=== PATIENT | male | born 1945 | race Caucasian/White ===

== ENCOUNTER → 2017-02-04 | Outpatient (CLI) | payer MEDICARE ==
--- NOTE | 2017-02-05 21:08 | ECHOF ---
Referral Reason:I10 Hypertension, I35.0 Nonrheumatic aortic (valve MEASUREMENTS -------- HEIGHT: 172.7 cm WEIGHT: 86.2 kg BP: 187/84 RVIDd: 2.3 cm (< 3.3) IVSd: 1.2 cm (0.6 - 1.1) LVIDd: 5.1 cm (3.9 - 5.3) LVPWd: 1.2 cm (0.6 - 1.1) IVSs: 1.9 cm LVIDs: 2.9 cm LVPWs: 1.9 cm LAESV Index (A-L): 20.08 ml/m Ao Diam: 3.8 cm (2.0 - 3.7) LA Diam: 3.1 cm (2.7 - 3.8) MV EXCURSION: 18.742 mm (> 18.000) MV EF SLOPE: 100 mm/s (70 - 150) EPSS: 0.9 cm MV E Adolfo: 0.50 m/s MV DecT: 462 ms MV A Adolfo: 0.92 m/s MV E/A Ratio: 0.54 AV maxP.51 mmHg AV meanP.85 mmHg AR PHT: 300 ms RAP: 5.00 mmHg RVSP: 30.22 mmHg FINDINGS -------- Sinus rhythm. This was a technically adequate study. There is moderate concentric left ventricular hypertrophy. Overall left ventricular systolic function is normal with, an EF between 60 - 65 %. The right ventricle is normal in size and function. Normal LA size by volume 22+/-6 ml/m2. The right atrium is normal in size. Aortic valve is severely thickened. There is [id number] aortic regurgitation. The aortic pressure half-time by doppler is 300ms. Severe aortic stenosis with peak/mean pressure gradient of 82.51mmHg / 53.85mmHg The mitral valve leaflets are mildly thickened. There is trace mitral regurgitation. Trace tricuspid regurgitation present. There is no evidence of pulmonary hypertension. The right ventricular systolic pressure, as measured by Doppler, is 30.22mmHg. The pulmonic valve was not well visualized. The aortic root is mildy dilated. Normal inferior vena cava with normal inspiratory collapse consistent with estimated right atrial pressure of 5 mmHg. The pericardium is normal. There is no pericardial effusion. CONCLUSIONS -------- 1. Sinus rhythm. 2. There is trace mitral regurgitation. 3. Trace tricuspid regurgitation present. 4. There is no evidence of pulmonary hypertension. 5. The right ventricular systolic pressure, as measured by Doppler, is 30.22mmHg. 6. The pulmonic valve was not well visualized. 7. The aortic root is mildy dilated. 8. There is no pericardial effusion. 9. This was a technically adequate study. 10. Overall left ventricular systolic function is normal with, an EF between 60 - 65 %. 11. Normal LA size by volume 22+/-6 ml/m2. 12. Aortic valve is severely thickened. 13. There is sggtfewa-uc-eubpim aortic regurgitation. 14. The aortic pressure half-time by doppler is 300ms. 15. Severe aortic stenosis with peak/mean pressure gradient of 82.51mmHg / 53.85mmHg, 16. The mitral valve leaflets are mildly thickened. [employer] WORKER: Deepak Conway RDCS
== END | disposition home or self-care (01) ==
LOC: RADECHMAIN 11:11
PROVIDERS: ATTEND Internal Medicine
DX: I35.0 Nonrheumatic aortic (valve) stenosis (principal); I35.1 Nonrheumatic aortic (valve) insufficiency; I07.1 Rheumatic tricuspid insufficiency; I05.8 Other rheumatic mitral valve diseases
CPT/HCPCS: 93306

== ENCOUNTER 2017-02-28 06:28 | Day surgery (SDC) | payer MEDICARE ==
[2017-02-20 14:59] VITALS: BMI 28.8
[2017-02-28] MEDS ORDERED: SODIUM CHLORIDE 0.9% 500 ML IV ONE (06:44)
[2017-02-28 06:55] VITALS: RESP 16; TEMP 98.3
[2017-02-28] MEDS ORDERED: fentaNYL (PF) 50 MCG/ML 2 ML AMP ONE (07:18)
[2017-02-28] MEDS ORDERED: MIDAZOLAM 2 MG/2 ML VIAL ONE (07:18)
[2017-02-28] MEDS: BENZOCAINE SPRAY 1 SPRAY CAN MUCOUS MEM ONE ×2 (07:25→07:36)
[2017-02-28] MEDS: fentaNYL (PF) 50 MCG/ML 2 ML AMP IVP ONE ×2 (07:36→07:46)
[2017-02-28] MEDS: MIDAZOLAM 2 MG/2 ML VIAL IVP ONE ×3 (07:45→08:12)
[2017-02-28] MEDS ORDERED: MIDAZOLAM 2 MG/2 ML VIAL IVP ONE (07:52)
--- NOTE | 2017-02-28 08:25 | P.PCN ---
Date of Procedure: 02/28/17 Preoperative Diagnosis: aortic stenosis and regurgitation Postoperative Diagnosis: 2. Severe aortic stenosis and moderate aortic regurgitation. It appears to be a bicuspid aortic valve Procedure(s) Performed: LUIS examination Implants: Indications for Procedure: Operative Findings: Description of Procedure: INDICATION: Assessment of the aortic valve disease CONSENT: . Informed consent was obtained from both patient and family PROCEDURE: . Patient was brought to the lab in a fasting state. He was prepped and draped in the usual fashion. The throat was sprayed with Cetacaine and a lubricated Omni probe was introduced into the oropharynx and was advanced into the esophagus and stomach. Multiple views were obtained. Patient tolerated the procedure well. Saline bubble injection was performed along with color and pulse wave Doppler FINDINGS: The aortic valve is calcified. The aortic root is dilated and measures about 4.4 cm. It was difficult to planimetry valve area. The valve appears to be bicuspid. There is moderate aortic regurgitation. The aortic valve area is estimated as 1.1 cm by planimetry. A peak gradient of about 90 to 100 millimeters of mercury with a mean of 50 was applied across the aortic valve. These findings are consistent with severe aortic stenosis and moderate aortic regurgitation. The mitral valve showed trace regurgitation. Mitral valve structure appeared to be normal. Left atrial appendage free of any clot. Interatrial septum is could not be well-visualized.. There appeared to be mild shunt across the interatrial septum suggestive of PFO. However, injection of the controversial and mobile injection did not reveal any crossover of bubbles across the interatrial septum. Left ventricular function is preserved. IMPRESSION: #1. Severe aortic stenosis and moderate aortic regurgitation. Though planimetry showed a valve area of 1. once per centimeters the gradient is up to 100 with a mean of 50 mmHg. Aortic root is dilated and ascending aorta is dilated measuring about 4.2-1.4 cm. #2. Normal left coronary function #3. No clot in the left atrial appendage #4. Suspicious PFO PLAN: Continue maximal medical therapy. Consider aortic valve replacement. Follow-up in the office in one week
[2017-02-28] MEDS ORDERED: SODIUM CHLORIDE 0.9% 1,000 ML IV SCH (08:30)
[2017-02-28 09:16] VITALS: BP 126/65; PULSE 68
== END 2017-02-28 09:30 | disposition home or self-care (01) ==
LOC: CATHCVL 06:28
PROVIDERS: ATTEND Internal Medicine Cardiovascular Disease
DX: I35.2 Nonrheumatic aortic (valve) stenosis with insufficiency (principal); I10 Essential (primary) hypertension; Z82.49 Family history of ischemic heart disease and other diseases of the circulatory system; Z79.899 Other long term (current) drug therapy; Z87.891 Personal history of nicotine dependence
CPT/HCPCS: 93312; 93320; 93325; J2250; J3010

== ENCOUNTER → 2017-03-06 | Outpatient (CLI) | payer MEDICARE ==
[2017-03-06 12:35] LABS: CH 31.4; CHCM 33.8; HCT 49.1 % (39.0-53.0); HDW 2.52; HGB 16.3 gm/dL (13.0-17.5); MCHC 33.3 g/dL (31.0-37.0); MCV 93.2 fL (80.0-100.0); Mean Platelet Volume 6.5; RBC 5.27 m/uL (4.30-5.90); WBC 6.9 k/uL (3.8-10.6)
[2017-03-06 13:11] LABS: Anion Gap 7 mmol/L; Blood Urea Nitrogen 18 mg/dL (9-20); Carbon Dioxide 26 mmol/L (22-30); Chloride 105 mmol/L (98-107); Non-African American GFR(MDRD) 54 (>60 ml/min/1.73 sqM); Potassium 4.5 mmol/L (3.5-5.1); Sodium 138 mmol/L (137-145)
== END | disposition home or self-care (01) ==
LOC: LABPAT 12:05
PROVIDERS: ATTEND Internal Medicine Cardiovascular Disease
DX: Z01.812 Encounter for preprocedural laboratory examination (principal); I35.0 Nonrheumatic aortic (valve) stenosis
CPT/HCPCS: 80051; 82565; 84520; 85027

== ENCOUNTER 2017-03-11 07:03 | Day surgery (SDC) | payer MEDICARE ==
[2017-03-07 15:04] VITALS: BMI 28.8
[~2017-03-11 07:03] MED LIST: ALPRAZolam 0.25 MG TAB PO PRN; ALPRAZolam 0.5 MG TAB PO PRN; ASPIRIN 325 MG TAB PO STA; ATORVASTATIN 80 MG TAB PO STA; NITROGLYCERIN SL TABS 0.4 MG TAB SUBLINGUAL PRN; SODIUM CHLORIDE 0.9% 1,000 ML in EMPTY BAG 1 BAG IV ONE
[2017-03-11] MEDS ORDERED: MIDAZOLAM 2 MG/2 ML VIAL IV ONE (09:57)
[2017-03-11] MEDS ORDERED: fentaNYL (PF) 50 MCG/ML 2 ML AMP IV ONE (09:58)
[2017-03-11] MEDS ORDERED: LIDOCAINE 2% INJ 20 MG/ML SQ ONE (10:00)
[2017-03-11 10:20] LABS: Site PA
[2017-03-11 10:24] LABS: Site RA
[2017-03-11 10:27] LABS: Site FA
[2017-03-11] MEDS ORDERED: RX INFO: IV CONTRAST WAS GIVEN 1 EACH MISC MISCELLANE PRN (11:06)
[2017-03-11] MEDS ORDERED: IODIXANOL 320 MG/ML 100 ML INTRAARTER ONE (11:08)
[2017-03-11] MEDS ORDERED: SODIUM CHLORIDE 0.9% 1,000 ML IV SCH (11:15)
--- NOTE | 2017-03-11 11:23 | P.PCN ---
Date of Procedure: 03/11/17 Preoperative Diagnosis: Bicuspid aortic valve, aortic stenosis and regurgitation Postoperative Diagnosis: Severe aortic stenosis, moderate aortic regurgitation and normal coronary arteries Procedure(s) Performed: Right and left heart catheterization without left ventriculography plus aortic root injection Description of Procedure: HISTORY: This is a 71-year-old gentleman with a known aortic stenosis who was recently found to have increasing gradient consistent with severe aortic stenosis associated with moderate aortic regurgitation. His eye aortic root is also dilated and measured about 4.3 cm. The aortic valve by LUIS examination appear to be significantly stenotic and appear to be bicuspid. She is advised to have a right and left heart catheterization. CONSENT:I have discussed the risks, benefits and alternative therapies for the above-mentioned procedure and for both sedation/analgesia as well as necessary blood product administration, if indicated, as they pertain to this patient. The patient has indicated understanding and acceptance of the risks and procedures discussed. PROCEDURE: RIGHT HEART CATHETERIZATION: Patient was brought to the lab in a fasting state. Patient was given some IV sedation. The right groin is infiltrated with lidocaine and right femoral vein was entered using Seldinger technique. Right heart catheterization was performed using [place]-Juan catheter. Patient tolerated the procedure well. Hemostasis was obtained with manual compression. LEFT HEART CATHETERIZATION: Right femoral artery was entered using Seldinger technique. A 6-Palauan catheter was left in place and selective coronary arteriography was performed. Right Amplatz 1 catheter and guidewires were used across the aortic valve. Multiple other catheters were also tried including multipurpose. Patient tolerated the procedure well. Femoral angiogram was performed and Angio-Seal was applied for hemostasis. No immediate complications were noted and patient was transferred to [facility] in a stable condition Conscious Sedation: Versed : 1 mg Fentanyl : 50 g Duration : 62 minutes HEMODYNAMICS: RIGHT HEART CATHETERIZATION: Right atrial pressure: 119/8 Right ventricle: 37/5/5 Pulmonary artery: 33/14/20 PCW: 17/12 Cardiac output by thermodilution method is 4.4 and by Stephanie method 5.18. LEFT HEART CATHETERIZATION: The aortic pressure is 135/56. Left ventricle pressure was 194/9/16. The peak gradient across the aortic valve was 59. The mean gradient was 26. The valve area is 0.6 to 0.7 AORTIC ROOT INJECTION: This revealed heavily calcified aortic valve with evidence of moderate aortic regurgitation. The aortic root is also appeared dilated SELECTIVE CORONARY ARTERIOGRAPHY: LEFT MAIN: Normal length without any obstructive disease THE LEFT ANTERIOR DESCENDING CORONARY ARTERY: . This is a good caliber vessel giving rise to small diagonal septal branches and free of occlusive disease THE LEFT CIRCUMFLEX AND IS CORONARY ARTERY: . This is a good caliber vessel free of any significant occlusive disease THE RIGHT CORONARY ARTERY: . This is small and nondominant and free of occlusive disease LEFT VENTRICULOGRAPHY: . Not performed FINAL IMPRESSION: #1. Severe aortic stenosis. #2. Bicuspid aortic valve #3. Moderate aortic regurgitation #4. Normal coronary arteries. PLAN: Continues to medical therapy. Aortic valve replacement . Patient may also may require repair of aortic sylvia, in view of bicuspid valve. PROGNOSIS: []
[2017-03-11] MEDS ORDERED: clonazePAM 0.5 MG TAB PO SCH (21:00)
[2017-03-12 04:33] VITALS: RESP 18; TEMP 97.6
[2017-03-12 07:13] LABS: Anion Gap 4 mmol/L; Blood Urea Nitrogen 21 mg/dL (9-20); Calcium 9.1 mg/dL (8.4-10.2); Carbon Dioxide 26 mmol/L (22-30); Chloride 107 mmol/L (98-107); Glucose 87 mg/dL (74-99); Non-African American GFR(MDRD) 52 (>60 ml/min/1.73 sqM); Potassium 4.2 mmol/L (3.5-5.1); Sodium 137 mmol/L (137-145)
[2017-03-12 07:52] VITALS: BP 111/61; PULSE 64
[2017-03-12] MEDS ORDERED: FLUTICASONE 50MCG/SPRAY NASAL 16GM EA NOSTRIL SCH (09:00)
[2017-03-12] MEDS ORDERED: LISINOPRIL 20 MG TAB PO SCH (09:00)
[2017-03-12] MEDS ORDERED: METOPROLOL SUCCINATE (ER) 25 MG TAB.ER.24H PO SCH (09:00)
[2017-03-12] MEDS ORDERED: HYDROCHLOROTHIAZIDE 25 MG TAB PO SCH (09:00)
[2017-03-12] MEDS ORDERED: buPROPion XL 300 MG TAB.ER.24H PO SCH (09:00)
--- NOTE | 2017-03-12 09:30 | P.DS ---
Providers Date of admission: 03/11/2017 Attending physician: Epifanio Mcdaniels Consults: 03/11/17 11:10 Consult Physician Routine Consulting Provider: Greg French Consult Reason/Comments: Hypertension, aortic stenosis, medical management Do you want consulting provider notified?: Yes Primary care physician: Greg French - Discharge Diagnosis(es) (1) Aortic stenosis, severe Current Visit: Yes Status: Acute (2) Aortic valve regurgitation, nonrheumatic Current Visit: Yes Status: Acute (3) Bicuspid aortic valve Current Visit: Yes Status: Acute Hospital Course: Patient was brought in for elective cardiac catheterization for assessment of aortic stenosis and also concomitant ischemic heart disease. Patient had a right and left heart catheterization yesterday. He was found to have severe aortic stenosis with a valve area of 0.6 to 0.7 and evidence of moderate aortic regurgitation. Patient did not have any critical coronary artery disease. Patient was kept overnight for hydration. Patient remains stable without any chest pain, shortness of breath or dizziness. Patient had soft hematoma with some ecchymosis in the groin. It is pedal pulse are well preserved. Lungs are clear. Heart is regular with systolic murmur as before. Patient is being discharged home today. Patient will be scheduled for aortic valve replacement as an outpatient. Plan - Discharge Summary New Discharge Prescriptions: Continue Enalapril/Hydrochlorothiazide [Vaseretic 10-25 mg] 1 each PO DAILY buPROPion HCL [Wellbutrin XL] 300 mg PO DAILY Metoprolol Succinate (ER) [Toprol XL] 25 mg PO DAILY clonazePAM [KlonoPIN] 0.5 mg PO HS Fluticasone Nasal [place] [Flonase Nasal [place]] 1 spray EA NOSTRIL DAILY Discharge Medication List Enalapril/Hydrochlorothiazide [Vaseretic 10-25 mg] 1 each PO DAILY 02/20/17 [ History] Metoprolol Succinate (ER) [Toprol XL] 25 mg PO DAILY 02/20/17 [History] buPROPion HCL [Wellbutrin XL] 300 mg PO DAILY 02/20/17 [History] clonazePAM [KlonoPIN] 0.5 mg PO HS 02/20/17 [History] Fluticasone Nasal [place] [Flonase Nasal [place]ab[place]] 1 spray EA NOSTRIL DAILY 03/07/17 [History] Discharge Disposition: HOME SELF-CARE
--- NOTE | 2017-03-13 07:51 | CONS ---
CONSULTATION Consultation regarding medical management. HISTORY OF PRESENT ILLNESS: This 71-year-old gentleman is being evaluated following a followup of a recent evaluation in the office. The patient was noted to have an aortic stenosis murmur. He underwent echocardiography, which revealed that he had significant stenosis. In view of this, the patient has been seen by Dr. Mcdaniels, brought in today for a cardiac catheterization and aortic valve replacement evaluation. The patient noted to have a tight aortic stenosis, some aortic regurgitation, adequate left ventricular function and normal coronary arteries. The patient also has a bicuspid valve. He also has aneurysmal dilatation of the thoracic aorta. The patient primarily has a long-standing history of hypertension and history of chronic depression on medical therapy, well controlled. He also has some chronic anxiety associated, which is also well controlled. PAST MEDICAL HISTORY: As mentioned above, history of hypertension, chronic anxiety, depression disorder, mild degenerative arthritis. No history of any lung disease, liver disease, kidney disease, ulcer, TB, hepatitis. No history of a rheumatic fever, myocardial infarction or CVA. Does have BPH. PAST SURGICAL HISTORY: Negative for any major surgeries. PERSONAL HISTORY: Never smoked. No alcohol none. MEDICATIONS: Medications at present include enalapril hydrochlorothiazide 10/25 one daily, Flonase nasal inhaler, metoprolol succinate 25 mg daily, Wellbutrin XL 300 mg daily, Klonopin 0.5 mg at bedtime. SOCIAL HISTORY: The patient is , lives with the spouse. He is a retired schoolteacher. FAMILY MEDICAL HISTORY: Noncontributory. The patient has 2 adopted children. REVIEW OF SYSTEMS: No headaches, dizziness. No syncope, presyncope. CARDIAC: No chest pain, angina, palpitation. RESPIRATORY: No shortness of breath, cough, dyspnea. EXTREMITIES: No edema. CONSTITUTIONAL: No fever, chills. PHYSICAL EXAMINATION: Pleasant gentleman in no distress. Vitals stable as recorded. The patient's chest is clear. CARDIAC: Normal S1, S2 with no gallops. Regular rhythm. Systolic murmur 2/6 at the apex and left sternal border in the apex. EXTREMITIES: No edema. NEUROLOGICAL: Awake, alert, oriented x3 with well coordinated movements of upper extremities. LABORATORY ASSESSMENT: None new. ASSESSMENT: 1. Aortic stenosis, severe. 2. Bicuspid aortic valve. 3. Dilated aortic root. 4. Hypertension, controlled. 5. History of depression, controlled. PLAN: Basic on this consultation most of the time was spent with the patient and spouse regarding the patient's condition also patient's status. His activity limitations. The patient's son is getting on the 04 of April and it would be okay for the patient to attend the wedding. Surgical planning will be done subsequent to that. The patient will also be on vacation for 2 weeks prior to surgery following his sounds wedding, as long as the patient is not doing any heavy duty work, lifting heavy objects, he should be okay. Advised patient to decide whether he wants to have surgical procedure done at this hospital or at a tertiary center. His involves a nurse at [facility] and he is contemplating surgery there. Also one of his friends at this institution from cardiac ailment and thus he is nervous. The patient has been reassured that the surgical skills here of the surgeon is fine and that he should receive good care. The patient is also offered to review the outcome statistics as available. MMODL / IJN: [id number] /
== END 2017-03-12 11:40 | disposition home or self-care (01) ==
LOC: CATHCVL 07:03 → 3OBS 11:05 → CATHCVL 03-12 11:40
PROVIDERS: ATTEND Internal Medicine Cardiovascular Disease
DX: Q23.1 Congenital insufficiency of aortic valve (principal); I35.0 Nonrheumatic aortic (valve) stenosis; I35.1 Nonrheumatic aortic (valve) insufficiency; Z95.2 Presence of prosthetic heart valve; I10 Essential (primary) hypertension; Z87.891 Personal history of nicotine dependence; Z82.49 Family history of ischemic heart disease and other diseases of the circulatory system; F32.9 Major depressive disorder, single episode, unspecified; F41.9 Anxiety disorder, unspecified; Z79.899 Other long term (current) drug therapy
CPT/HCPCS: 93460; 80048; 85018; 82810; 99152; 99153 ×3; C1760; C1769 ×3; C1894 ×2; J2001; J2250; Q9967; J3010

== ENCOUNTER 2017-10-20 10:41 | Inpatient (IN) | payer MEDICARE ==
--- NOTE | 2017-10-20 10:54 | ED ---
General Adult HPI - General Stated complaint: Syncope Time Seen by Provider: 10/20/17 10:41 Source: RN notes reviewed - History of Present Illness Initial comments: This is a 72-year-old male who presents emergency Department with a past medical history significant for aorta and aortic valve replacement. Patient states this occurred in August. Patient was having a stress test when he started to become lightheaded staff laid him down he passed out patient was only out for a minute or 2. He denies any chest pain or palpitations. Patient denies shortness of breath or difficulty breathing. Patient states currently he is completely asymptomatic. Patient denies any headache patient denies numbness weakness. Patient denies being lightheaded currently. Patient states at the time he doesn't remember being lightheaded but staff indicated to EMS that he was lightheaded. Patient denies any leg swelling or calf tenderness. Patient denies any recent fever chills or cough. - Related Data Home Medications Medication Instructions Recorded Confirmed Metoprolol Succinate (ER) [Toprol 25 mg PO BID 02/20/17 10/20/17 XL] buPROPion HCL [Wellbutrin XL] 300 mg PO DAILY 02/20/17 10/20/17 Fluticasone Nasal [place] [Flonase 2 spray EA NOSTRIL DAILY 03/07/17 10/20/17 Nasal [place]] Acetaminophen Tab [Tylenol Tab] 325 - 650 mg PO Q4-6H PRN 10/20/17 10/20/17 Amiodarone [Cordarone] 200 mg PO DAILY 10/20/17 10/20/17 Fexofenadine HCl 180 mg PO DAILY 10/20/17 10/20/17 Multivitamins, Thera [Multivitamin 1 tab PO DAILY 10/20/17 10/20/17 (formulary)] Polyethylene Glycol 3350 [Miralax] 17 gm PO DAILY 10/20/17 10/20/17 Tamsulosin [Flomax] 0.4 mg PO DAILY 10/20/17 10/20/17 Allergies Allergy/AdvReac Type Severity Reaction Status Date / Time No Known Allergies Allergy Verified 10/20/17 11:39 Review of Systems ROS Statement: Those systems with pertinent positive or pertinent negative responses have been documented in the HPI. ROS Other: All systems not noted in ROS Statement are negative. Past Medical History Additional Past Medical History / Comment(s): see Dr Mcdaniels's H&P, History of Any Multi-Drug Resistant Organisms: None Reported Past Surgical History: No Surgical Hx Reported Additional Past Surgical History / Comment(s): LUIS Past Anesthesia/Blood Transfusion Reactions: No Reported Reaction Additional Past Anesthesia/Blood Transfusion Reaction / Comment(s): has never had anesthesia Past Psychological History: Depression Smoking Status: Never smoker Past Alcohol Use History: Rare Past Drug Use History: None Reported - Past Family History Father Family Medical History: Cancer General Exam - General Exam Comments Initial Comments: GENERAL: Patient is well-developed and well-nourished. Patient is nontoxic and well- hydrated and is in mild distress. ENT: Neck is soft and supple. No significant lymphadenopathy is noted. Oropharynx is clear. Moist mucous membranes. Neck has full range of motion without eliciting any pain. EYES: The sclera were anicteric and conjunctiva were pink and moist. Extraocular movements were intact and pupils were equal round and reactive to light. Eyelids were unremarkable. PULMONARY: Unlabored respirations. Good breath sounds bilaterally. No audible rales rhonchi or wheezing was noted. CARDIOVASCULAR: There is a regular rate and rhythm without any murmurs gallops or rubs. ABDOMEN: Soft and nontender with normal bowel sounds. No palpable organomegaly was noted. There is no palpable pulsatile mass. SKIN: Skin is clear with no lesions or rashes and otherwise unremarkable. NEUROLOGIC: Patient is alert and oriented x3. Cranial nerves II through XII are grossly intact. Motor and sensory are also intact. Normal speech, volume and content. Symmetrical smile. MUSCULOSKELETAL: Normal extremities with adequate strength and full range of motion. No lower extremity swelling or edema. No calf tenderness. LYMPHATICS: No significant lymphadenopathy is noted PSYCHIATRIC: Normal psychiatric evaluation. Normal interpersonal interactions appears functionally intact in deals appropriately with others. No signs of depression. No signs of anxiety. Course Vital Signs 10/20/17 10/20/17 10/20/17 10:44 12:13 12:16 Temperature 98.0 F Pulse Rate 69 84 72 Respiratory 16 16 16 Rate Blood Pressure 167/87 65/47 142/105 O2 Sat by Pulse 98 98 100 Oximetry 10/20/17 10/20/17 13:25 13:34 Temperature Pulse Rate 67 65 Respiratory 18 18 Rate Blood Pressure 162/81 154/81 O2 Sat by Pulse 97 98 Oximetry Medical Decision Making - Medical Decision Making EKG shows normal sinus rhythm at 69 bpm NJ interval is 206 QRS is 114 Q-T intervals 432 QTC is 462. EKG shows no ST segment elevation or depression CT of the chest showed no acute abnormality. Chest x-ray showed no acute abnormality. I spoke with Dr. French. Dr. French wanted the patient admitted and he wanted an echocardiogram ordered. - Lab Data Result diagrams: 10/20/17 11:08 10/20/17 11:52 Lab Results 10/20/17 10/20/17 10/20/17 Range/Units 11:08 11:52 11:52 WBC 7.6 (3.8-10.6) k/uL RBC 5.03 (4.30-5.90) m/uL Hgb 14.8 (13.0-17.5) gm/dL Hct 46.1 (39.0-53.0) % MCV 91.5 (80.0-100.0) fL MCH 29.4 (25.0-35.0) pg MCHC 32.1 (31.0-37.0) g/dL RDW 14.0 (11.5-15.5) % Plt Count 201 (150-450) k/uL Neutrophils % 77 % Lymphocytes % 11 % Monocytes % 6 % Eosinophils % 3 % Basophils % 1 % Neutrophils # 5.8 (1.3-7.7) k/uL Lymphocytes # 0.9 L (1.0-4.8) k/uL Monocytes # 0.5 (0-1.0) k/uL Eosinophils # 0.2 (0-0.7) k/uL Basophils # 0.1 (0-0.2) k/uL PT 10.6 (9.0-12.0) sec INR 1.1 (<1.2) APTT 20.6 L (22.0-30.0) sec D-Dimer 3.70 H (<0.60) mg/L FEU Sodium 142 (137-145) mmol/L Potassium 4.5 (3.5-5.1) mmol/L Chloride 105 (98-107) mmol/L Carbon Dioxide 27 (22-30) mmol/L Anion Gap 10 mmol/L BUN 19 (9-20) mg/dL Creatinine 1.27 H (0.66-1.25) mg/dL Est GFR (CKD-EPI)AfAm 65 (>60 ml/min/1.73 sqM) Est GFR (CKD-EPI)NonAf 56 (>60 ml/min/1.73 sqM) Glucose 100 H (74-99) mg/dL Calcium 10.2 (8.4-10.2) mg/dL Magnesium 2.0 (1.6-2.3) mg/dL Total Bilirubin 0.5 (0.2-1.3) mg/dL AST 28 (17-59) U/L ALT 25 (21-72) U/L Alkaline Phosphatase 78 (38-126) U/L Total Creatine Kinase (55-170) U/L CK-MB (CK-2) (0.0-2.4) ng/mL CK-MB (CK-2) Rel Index Troponin I (0.000-0.034) ng/mL Total Protein 6.1 L (6.3-8.2) g/dL Albumin 3.5 (3.5-5.0) g/dL 10/20/17 Range/Units 11:52 WBC (3.8-10.6) k/uL RBC (4.30-5.90) m/uL Hgb (13.0-17.5) gm/dL Hct (39.0-53.0) % MCV (80.0-100.0) fL MCH (25.0-35.0) pg MCHC (31.0-37.0) g/dL RDW (11.5-15.5) % Plt Count (150-450) k/uL Neutrophils % % Lymphocytes % % Monocytes % % Eosinophils % % Basophils % % Neutrophils # (1.3-7.7) k/uL Lymphocytes # (1.0-4.8) k/uL Monocytes # (0-1.0) k/uL Eosinophils # (0-0.7) k/uL Basophils # (0-0.2) k/uL PT (9.0-12.0) sec INR (<1.2) APTT (22.0-30.0) sec D-Dimer (<0.60) mg/L FEU Sodium (137-145) mmol/L Potassium (3.5-5.1) mmol/L Chloride (98-107) mmol/L Carbon Dioxide (22-30) mmol/L Anion Gap mmol/L BUN (9-20) mg/dL Creatinine (0.66-1.25) mg/dL Est GFR (CKD-EPI)AfAm (>60 ml/min/1.73 sqM) Est GFR (CKD-EPI)NonAf (>60 ml/min/1.73 sqM) Glucose (74-99) mg/dL Calcium (8.4-10.2) mg/dL Magnesium (1.6-2.3) mg/dL Total Bilirubin (0.2-1.3) mg/dL AST (17-59) U/L ALT (21-72) U/L Alkaline Phosphatase (38-126) U/L Total Creatine Kinase 41 L (55-170) U/L CK-MB (CK-2) 1.0 (0.0-2.4) ng/mL CK-MB (CK-2) Rel Index 2.4 Troponin I <0.012 (0.000-0.034) ng/mL Total Protein (6.3-8.2) g/dL Albumin (3.5-5.0) g/dL Disposition Clinical Impression: Syncope Disposition: ADMITTED IP TO THIS HOSP Referrals: Greg French MD [Primary Care Provider] - 1-2 days Time of Disposition: 14:16
[2017-10-20 11:25] LABS: Basophils # (A) 0.1 k/uL (0-0.2); Basophils % (A) 1 %; Eosinophils # (A) 0.2 k/uL (0-0.7); Eosinophils % (A) 3 %; HCT 46.1 % (39.0-53.0); HGB 14.8 gm/dL (13.0-17.5); Lymphocytes # (A) 0.9 k/uL (1.0-4.8); Lymphocytes % (A) 11 %; MCH 29.4 pg (25.0-35.0); MCHC 32.1 g/dL (31.0-37.0); MCV 91.5 fL (80.0-100.0); Mean Platelet Volume 7.7; Monocytes # (A) 0.5 k/uL (0-1.0); Monocytes % (A) 6 %; Neutrophils # (A) 5.8 k/uL (1.3-7.7); Neutrophils % (A) 77 %; Platelet Count 201 k/uL (150-450); RBC 5.03 m/uL (4.30-5.90); WBC 7.6 k/uL (3.8-10.6)
--- NOTE | 2017-10-20 11:54 | XR ---
EXAMINATION TYPE: XR chest 2V DATE OF EXAM: 10/20/2017 COMPARISON: NONE HISTORY: Lightheadedness. Recent cardiac surgery. TECHNIQUE: Frontal and lateral views of the chest are obtained. FINDINGS: There is a small layering left pleural effusion with associated left basilar airspace dise ase, likely compressive atelectasis. Remainder the lungs are clear. The heart is mildly enlarged with post CABG changes of the chest. Minimal multilevel degenerative changes of the thoracic spine are no parul. IMPRESSION: Small layering left pleural effusion with associated left basilar airspace disease, like ly compressive atelectasis.
[2017-10-20 12:16] LABS: Albumin 3.5 g/dL (3.5-5.0); Calcium 10.2 mg/dL (8.4-10.2); Potassium 4.5 mmol/L (3.5-5.1); Total Bilirubin 0.5 mg/dL (0.2-1.3); Total Protein 6.1 g/dL (6.3-8.2)
[2017-10-20 12:26] LABS: Creatine Kinase 41 U/L (55-170)
[2017-10-20 12:30] LABS: INR 1.1 (<1.2)
[2017-10-20 12:31] LABS: Prothrombin Time 10.6 sec (9.0-12.0)
[2017-10-20 12:35] LABS: D-Dimer 3.7 mg/L FEU (<0.60); Partial Thromboplastin Time 20.6 sec (22.0-30.0)
[2017-10-20 12:38] LABS: Troponin I <0.012 ng/mL (0.000-0.034)
[2017-10-20] MEDS ORDERED: HEPARIN SODIUM,PORCINE 10,000 UNIT/ML 1 ML VIAL IV ONE (12:38)
[2017-10-20] MEDS ORDERED: RX INFO: IV CONTRAST WAS GIVEN 1 EACH MISC MISCELLANE PRN (12:39)
[2017-10-20] MEDS ORDERED: HEPARIN SOD,PORK IN 0.45% NACL 25,000 UNIT in 0.45% NACL 1 500ML.BAG IV SCH (12:45)
--- NOTE | 2017-10-20 13:21 | CT ---
EXAMINATION TYPE: CT chest angio for PE DATE OF EXAM: 10/20/2017 COMPARISON: NONE HISTORY: Elevated d-dimer. Syncope. CT DLP: 333.3 mGycm. Automated Exposure Control for Dose Reduction was Utilized. CONTRAST: CTA scan of the thorax is performed with IV Contrast, patient injected with 80 mL of Isovue 370, pulm onary embolism protocol. MIP Images are created on CT scanner and reviewed. FINDINGS: LUNGS: There is a small layering left pleural effusion with associated compressive atelectasis and tr leo right pleural effusion with associated compressive atelectasis. Atelectasis enhances and is subse gmental. No findings to suggest pneumonia. MEDIASTINUM: There is satisfactory enhancement of the pulmonary artery and its branches, there is no CT evidence for pulmonary embolism. There are no greater than 1 cm hilar or mediastinal lymph nodes. Moderate coronary artery calcifications are noted. No cardiomegaly or pericardial effusion is seen. Ascending thoracic aorta is upper limits of normal size measuring 3.9 cm. OTHER: Small hiatal hernia is present. Nonobstructing left upper pole calculi (at least 5 in number a re seen with the largest measuring 4 mm. There is layering gallbladder sludge. Left adrenal gland nod ule measures 1.5 x 1.8 cm and does not fit criteria for a benign adrenal adenoma on this examination. Moderate multilevel degenerative changes of thoracic spine are noted. Sternotomy wires are present. IMPRESSION: 1. No evidence of pulmonary embolus. 2. Small left and trace right pleural effusions with associated compressive atelectasis. 3. Ascending thoracic aorta is upper limits of normal measuring 3.9 cm. 4. Left adrenal gland lesion that does not fit criteria for a benign adenoma. Full characterization w ith dynamic CT abdomen could be performed on a nonemergent basis. 5. Left sided nonobstructing renal calculi and moderate hiatal hernia.
[2017-10-20] MEDS ORDERED: SODIUM CHLORIDE 0.9% 1,000 ML IV ONE (14:16)
[2017-10-20] MEDS ORDERED: SODIUM CHLORIDE 0.9% 1,500 ML IV STA (14:23)
[2017-10-20] MEDS ORDERED: ACETAMINOPHEN TAB 325 MG TAB PO PRN (17:39)
[2017-10-20] MEDS: METOPROLOL SUCCINATE (ER) 25 MG TAB.ER.24H PO SCH (21:15)
[2017-10-21 05:00] VITALS: TEMP 97.8
--- NOTE | 2017-10-21 06:12 | HP ---
HISTORY AND PHYSICAL ATTENDING PHYSICIAN: Dr. Ryanne French. CHIEF COMPLAINT: Passing out episode. HISTORY OF PRESENT ILLNESS: A 72-year-old gentleman admitted to the hospital after presenting to the ER from the cardiac rehab. The patient had been on the bicycle for about 10 minutes and then he got on the treadmill. He started feeling faint. He got off the treadmill and was getting back to the stationary bike and thought he could sit down and feel better when he almost started collapsing and he was gripped by the nurse and eased to the floor. The patient had a syncopal episode. He was brought in the emergency room. In the emergency room, the patient was awake, alert, with no symptoms. He denies any headaches, dizziness, chest pain, shortness of breath. No palpitations. While he was in the emergency room, the patient spontaneously as he was sitting his blood pressure dropped down to 65/47. Pulse reported 84 with no symptoms. No other changes. Pulse ox remained normal. At the time of my evaluation, about 5 o'clock this evening, the patient was sitting up on the stretcher in the emergency room and had just finished eating his dinner. He is wide awake, alert, no symptoms. The patient recently underwent aortic valve replacement. This is about 6 weeks ago. The patient has pretty much healed from that. He has had no further problems. He is followed with a manager biostatistics and the surgeon. He has no evidence of any aortic valve regurgitation. Aortic valve seems to be functioning well. The patient before he went for this cardiac rehab exercise today for the first time he had taken his medications which include metoprolol 25 mg and amiodarone 200 mg and Flomax. The patient had been on amiodarone because of an episode of atrial fibrillation and he is to be on amiodarone until November 02. The patient since his surgical procedure has not had any episodes of syncope. PAST MEDICAL HISTORY: Significant for hypertension of long-standing and bicuspid aortic valve and on evaluation noted to be a significant high-grade. In view of this patient being symptomatic the patient has undergone a valve replacement. There has been no history of diabetes, lung disease, liver disease, kidney disease, ulcers, TB, hepatitis. No history of any rheumatic fever, myocardial infarction or CVA. The patient does have a history of chronic anxiety and depression for which he is on medical therapy. PAST SURGICAL HISTORY: Significant for the aortic valve replacement. PERSONAL HISTORY: Never smoker. Alcohol none. ALLERGIES: None known. MEDICATIONS: Medications at present include metoprolol 25 mg b.i.d., MiraLAX daily, multivitamin daily, amiodarone 200 mg daily, Wellbutrin XL 300 mg daily, Flonase daily, Claritin daily. FAMILY MEDICAL HISTORY: The patient has 2 adopted children, doing well. SOCIAL HISTORY: Patient is a retired teacher. , lives with spouse was fairly active prior to this surgical procedure. REVIEW OF SYSTEMS: NEURO: Denies any headaches, dizziness. No double vision blurred vision. No symptoms of seizure. Present episode of syncopal. PSYCH: No anxiety, depression. CARDIAC: No chest pain, angina, palpitation. RESPIRATORY: No shortness of breath, cough, hemoptysis. GI: No nausea, vomiting, abdominal pain, diarrhea. No melena. : No symptoms of dysuria, hematuria, urgency, frequency. EXTREMITIES: Denies pain, edema. CONSTITUTIONAL: No fever, chills. HEMATOLOGICAL: No anemia or bleeding disorder. ENDOCRINE: No history of diabetes mellitus or hypothyroidism. SKIN: No rashes. MUSCULOSKELETAL: Denies any major symptoms. CONSTITUTIONAL: No fever or chills. PHYSICAL EXAMINATION: Pleasant gentleman present in no distress. Vital signs revealed temperature 98.5, pulse 85, respirations 18, blood pressure 111/66, pulse ox 96% on 2 L. HEENT: Normocephalic. NECK: No JVD. CHEST: Clear to auscultation and percussion. CARDIAC: Normal S1, S2 with no gallops, murmurs, rubs appreciated. ABDOMEN: Soft. No palpable masses. Bowel sounds normal. No organomegaly. No abdominal bruits. EXTREMITIES: Reveal no edema. Good pulses both upper lower extremities. NEUROLOGICAL: Awake, alert, oriented x3. Cranial nerves 2-12 intact. Equal strength bilaterally. LABORATORY ASSESSMENT: EKG which shows no acute changes. Patient's D-dimer was elevated. The CTA reveals no evidence of any pulmonary embolism and mildly dilated aortic arch. Patient has a hiatal hernia and right nephrolithiasis. EKG reveals poor R-wave progression but no acute changes. Small pleural effusions lesion and left renal calculus. Left pleural effusion on chest x-ray. Labs revealed normal CBC. INR was normal. D-dimer was elevated at 3.7. Electrolytes are normal. BUN normal, creatinine elevated 1.27. Troponins are negative. ASSESSMENT: 1. Syncope, etiology undetermined. Possibly could be hypotension related to tamsulosin. Arrhythmias is not ruled out. Clinically does not seem to have any valvular dysfunction. 2. Status post aortic valve replacement. 3. Previous history of hypertension and hyperlipidemia. PLAN: The patient at present is stable. Continue present medical regimen with IV hydration. Monitor vital signs. Echocardiogram has already been done in the emergency room. Results are pending. Cardiology evaluation. Meanwhile, telemetry for any arrhythmia. Patient's condition discussed with the patient. Prognosis guarded. MMODL / IJN: [id number] /
[2017-10-21] MEDS: METOPROLOL SUCCINATE (ER) 25 MG TAB.ER.24H PO SCH (07:50)
[2017-10-21] MEDS ORDERED: SODIUM CHLORIDE 0.9% 1,000 ML IV SCH (08:00)
[2017-10-21 08:37] VITALS: RESP 14
[2017-10-21] MEDS ORDERED: LORATADINE 10 MG TAB PO SCH (09:00)
[2017-10-21] MEDS ORDERED: buPROPion XL 300 MG TAB.ER.24H PO SCH (09:00)
[2017-10-21] MEDS ORDERED: MULTIVITAMINS, THERA 1 EACH TAB PO SCH (09:00)
[2017-10-21] MEDS ORDERED: AMIODARONE 200 MG TAB PO SCH (09:00)
[2017-10-21] MEDS ORDERED: POLYETHYLENE GLYCOL 3350 17 GM POWD.PACK PO SCH (09:00)
[2017-10-21] MEDS ORDERED: FLUTICASONE 50MCG/SPRAY NASAL 16GM EA NOSTRIL SCH (09:00)
[2017-10-21 09:33] LABS: HCT 41.6 % (39.0-53.0); HGB 13.3 gm/dL (13.0-17.5); Hypochromasia Slight; MCH 29.3 pg (25.0-35.0); MCHC 32.1 g/dL (31.0-37.0); MCV 91.5 fL (80.0-100.0); Mean Platelet Volume 7.1; Platelet Count 205 k/uL (150-450); RBC 4.54 m/uL (4.30-5.90); RDW 14.2 % (11.5-15.5); WBC 5.9 k/uL (3.8-10.6)
[2017-10-21 09:42] LABS: Calcium 9.5 mg/dL (8.4-10.2); Potassium 4.4 mmol/L (3.5-5.1)
--- NOTE | 2017-10-21 09:56 | P.CRDCN ---
History of Present Illness Consult date: 10/21/17 Requesting physician: Greg French Consult reason: sycope Chief complaint: Syncope History of present illness: This pleasant 72-year-old gentleman who follows regularly with Dr. Mcdaniels in the office. He has a known history of hypertension, paroxysmal atrial fibrillation, in August of this year patient underwent aortic valve replacement at the [facility]. He states overall that he's been doing quite well. He was at cardiac rehab yesterday, states that he was on the bicycle doing very well. Once his 10 minutes were completed on the bicycle he stood up to go to the treadmill, he states that he started to become dizzy and mildly lightheaded, he states that he attempted to get off the treadmill because he felt as though he was going to pass out. Apparently the cardiac rehab nurse got to him in time and assisted him to the ground. He said the next thing he recalls is waking up to several healthcare provider standing around him. He doesn't recall losing complete consciousness, however he states he remembers awaking up to people standing around him. We don't have documentation of what the blood pressure was at rehab, however here in the emergency room the patient was documented to have an initial blood pressure of 160/80, subsequent blood pressure 65/40, then back up to 142/105 later on. EKG on arrival here showed a normal sinus rhythm with T-wave abnormality in the lateral leads. Chest x-ray shows small layering left pleural effusion. Blood pressure this morning 180/88. Heart rate in the 70s. 96% on room air. CBC is normal, d-dimer 3.7, sodium 142, potassium 4.4, BUN 13, creatinine 1.0. Mag level 2.0, echocardiogram with Doppler study was performed in the emergency room and is yet pending. At the time of my examination this morning, patient feels well, he denies any dizziness or lightheadedness. No chest discomfort or palpitations, no difficulty in breathing. Past Medical History Past Medical History: Hypertension, Syncope Additional Past Medical History / Comment(s): see Dr Mcdaniels's H&P, aortic stenosis, murmur, belkofski wears hearing aids oneal. History of Any Multi-Drug Resistant Organisms: None Reported Past Surgical History: Cardiac Valve Replacement, Heart Catheterization Additional Past Surgical History / Comment(s): LUIS Past Anesthesia/Blood Transfusion Reactions: No Reported Reaction Additional Past Anesthesia/Blood Transfusion Reaction / Comment(s): has never had anesthesia Smoking Status: Former smoker - Past Family History Father Family Medical History: Cancer Mother Additional Family Medical History / Comment(s): pt stated his mom, grandmother and great grandmother had heart problems Medications and Allergies Home Medications Medication Instructions Recorded Confirmed Type Metoprolol Succinate (ER) [Toprol 25 mg PO BID 02/20/17 10/20/17 History XL] buPROPion HCL [Wellbutrin XL] 300 mg PO DAILY 02/20/17 10/20/17 History Fluticasone Nasal Sanders [Flonase 2 spray EA NOSTRIL DAILY 03/07/17 10/20/17 History Nasal Sanders] Acetaminophen Tab [Tylenol Tab] 325 - 650 mg PO Q4-6H PRN 10/20/17 10/20/17 History Amiodarone [Cordarone] 200 mg PO DAILY 10/20/17 10/20/17 History Fexofenadine HCl 180 mg PO DAILY 10/20/17 10/20/17 History Multivitamins, Thera [Multivitamin 1 tab PO DAILY 10/20/17 10/20/17 History (formulary)] Polyethylene Glycol 3350 [Miralax] 17 gm PO DAILY 10/20/17 10/20/17 History Tamsulosin [Flomax] 0.4 mg PO DAILY 10/20/17 10/20/17 History Allergies Allergy/AdvReac Type Severity Reaction Status Date / Time No Known Allergies Allergy Verified 10/20/17 11:39 Physical Exam Vitals: Vital Signs Temp Pulse Pulse Pulse Resp BP BP 10/21/17 08:36 185/88 10/21/17 07:30 97.8 F 73 14 151/83 10/21/17 04:00 97.8 F 68 68 16 120/59 10/21/17 00:00 97.9 F 68 86 16 122/61 10/20/17 20:00 98 F 68 74 16 138/63 10/20/17 19:51 98.0 F 71 18 133/78 10/20/17 17:42 98.5 F 85 18 111/66 10/20/17 15:40 71 18 163/87 10/20/17 14:26 71 18 160/87 04/30/18 13:34 65 18 154/81 10/20/17 13:25 67 18 162/81 10/20/17 12:16 72 16 142/105 10/20/17 12:13 84 16 65/47 10/20/17 10:44 98.0 F 69 16 167/87 Pulse Ox 10/21/17 08:36 10/21/17 07:30 96 10/21/17 04:00 98 10/21/17 00:00 98 10/20/17 20:00 96 10/20/17 19:51 97 10/20/17 17:42 96 10/20/17 15:40 98 10/20/17 14:26 96 10/20/17 13:34 98 10/20/17 13:25 97 10/20/17 12:16 100 10/20/17 12:13 98 10/20/17 10:44 98 Intake and Output 10/20/17 10/21/17 10/21/17 22:59 06:59 14:59 Intake Total 480 Balance 480 Intake: Oral 480 Other: Voiding Method Toilet Toilet # Voids 1 2 Weight 83.007 kg 84.2 kg PHYSICAL EXAMINATION: HEENT: Head is atraumatic, normocephalic. Pupils equal, round. Neck is supple. There is no elevated jugular venous pressure. HEART EXAMINATION: Heart S1, S2 normal. No murmur or gallop heard. CHEST EXAMINATION: Lungs are clear to auscultation and precussion. No chest wall tenderness is noted on palpation or with deep breathing. ABDOMEN: Soft, nontender. Bowel sounds are heard. No organomegaly noted. EXTREMITIES: 2+ peripheral pulses with no evidence of peripheral edema and no calf tenderness noted. NEUROLOGIC patient is awake, alert and oriented -3. . Results 10/21/17 09:16 10/20/17 11:52 Cardiac Enzymes 10/20/17 10/20/17 10/20/17 Range/Units 11:52 11:52 16:50 AST 28 (17-59) U/L CK-MB (CK-2) 1.0 (0.0-2.4) ng/mL Troponin I <0.012 <0.012 (0.000-0.034) ng/mL 10/20/17 Range/Units 23:14 AST (17-59) U/L CK-MB (CK-2) (0.0-2.4) ng/mL Troponin I <0.012 (0.000-0.034) ng/mL Coagulation 10/20/17 Range/Units 11:52 PT 10.6 (9.0-12.0) sec APTT 20.6 L (22.0-30.0) sec CBC 10/20/17 10/21/17 Range/Units 11:08 09:16 WBC 7.6 5.9 (3.8-10.6) k/uL RBC 5.03 4.54 (4.30-5.90) m/uL Hgb 14.8 13.3 (13.0-17.5) gm/dL Hct 46.1 41.6 (39.0-53.0) % Plt Count 201 205 (150-450) k/uL Comprehensive Metabolic Panel 10/20/17 Range/Units 11:52 Sodium 142 (137-145) mmol/L Potassium 4.5 (3.5-5.1) mmol/L Chloride 105 (98-107) mmol/L Carbon Dioxide 27 (22-30) mmol/L BUN 19 (9-20) mg/dL Creatinine 1.27 H (0.66-1.25) mg/dL Glucose 100 H (74-99) mg/dL Calcium 10.2 (8.4-10.2) mg/dL AST 28 (17-59) U/L ALT 25 (21-72) U/L Alkaline Phosphatase 78 (38-126) U/L Total Protein 6.1 L (6.3-8.2) g/dL Albumin 3.5 (3.5-5.0) g/dL Current Medications Generic Name Dose Route Start Last Admin Trade Name Freq PRN Reason Stop Dose Admin Acetaminophen 650 mg 10/20/17 17:39 Tylenol Tab PO Q6HR PRN Fever and/ or Pain Amiodarone HCl 200 mg 10/21/17 09:00 10/21/17 07:50 Cordarone PO 200 mg DAILY ZAY Administration Bupropion HCl 300 mg 10/21/17 09:00 10/21/17 07:50 Wellbutrin Xl PO 300 mg DAILY ZAY Administration Fluticasone Propionate 2 spray 10/21/17 09:00 10/21/17 07:53 Flonase Nasal Sanders EA NOSTRIL 2 spray DAILY ZAY Administration Loratadine 10 mg 10/21/17 09:00 10/21/17 07:50 Claritin PO 10 mg DAILY ZAY Administration Metoprolol Succinate 25 mg 10/20/17 21:00 10/21/17 07:50 Toprol Xl PO 25 mg BID ZAY Administration Miscellaneous Information 1 each 10/20/17 12:39 10/20/17 14:25 Rx Info: Iv Contrast Was Given MISCELLANE 10/22/17 12:39 1 each DAILY PRN Administration Per Protocol Multivitamins 1 each 10/21/17 09:00 10/21/17 07:50 Theragran PO 1 each DAILY ZAY Administration Polyethylene Glycol 17 gm 10/21/17 09:00 10/21/17 07:50 Miralax PO 17 gm DAILY ZAY Administration Intake and Output 10/20/17 10/21/17 10/21/17 22:59 06:59 14:59 Intake Total 480 Balance 480 Intake: Oral 480 Other: Voiding Method Toilet Toilet # Voids 1 2 Weight 83.007 kg 84.2 kg 10/21/17 09:16 10/20/17 11:52 EKG Interpretations (text) EKG shows normal sinus rhythm with T-wave inversion in the lateral leads. Assessment and Plan Plan: Assessment and plan #1 syncope, likely related to hypotension. #2 recent aortic valve replacement in August at [facility] #3 hypertension Plan Patient is currently receiving IV hydration, an echocardiogram with Doppler study has been performed which we will review. Patient was also on Flomax which is currently been placed on hold. We will check orthostatic blood pressure and heart rate every shift. Further recommendations to follow. DNP note has been reviewed, I agree with a documented findings and plan of care. Patient was seen and examined.
[2017-10-21 10:42] VITALS: BP 150/75
--- NOTE | 2017-10-21 11:27 | ECHOF ---
Referral Reason:Syncope MEASUREMENTS -------- HEIGHT: 172.7 cm WEIGHT: 83.0 kg BP: 154/81 RVIDd: 3.2 cm (< 3.3) IVSd: 0.9 cm (0.6 - 1.1) LVIDd: 4.3 cm (3.9 - 5.3) LVPWd: 1.1 cm (0.6 - 1.1) IVSs: 1.5 cm LVIDs: 3.0 cm LVPWs: 2.0 cm LA Diam: 3.2 cm (2.7 - 3.8) LAESV Index (A-L): 21.23 ml/m Ao Diam: 3.6 cm (2.0 - 3.7) MV EXCURSION: 10.412 mm (> 18.000) MV EF SLOPE: 17 mm/s (70 - 150) EPSS: 1.2 cm MV E Adolfo: 0.88 m/s MV DecT: 356 ms MV A Adolfo: 1.01 m/s MV E/A Ratio: 0.87 AV maxP.49 mmHg AV meanP.35 mmHg RAP: 5.00 mmHg RVSP: 30.87 mmHg FINDINGS -------- Sinus rhythm. This was a technically good study. The left ventricular size is normal. There is borderline concentric left ventricular hypertrophy. Overall left ventricular systolic function is normal with, an EF between 60 - 65 %. The right ventricle is normal in size. Normal LA size by volume 22+/-6 ml/m2. The right atrium is normal in size. Peak/mean gradient across the Aortic Valve is 8.49mmHg / 4.35mmHg. Normally functioning bioprosthet ic valve. Mild mitral regurgitation is present. Mild tricuspid regurgitation present. Right ventricular systolic pressure is normal at < 35 mmHg. The pulmonic valve was not well visualized. The aortic root size is normal. Normal inferior vena cava with normal inspiratory collapse consistent with estimated right atrial pre ssure of 5 mmHg. There is no pericardial effusion. CONCLUSIONS -------- 1. Sinus rhythm. 2. This was a technically good study. 3. The left ventricular size is normal. 4. There is borderline concentric left ventricular hypertrophy. 5. Overall left ventricular systolic function is normal with, an EF between 60 - 65 %. 6. The right ventricle is normal in size. 7. Normal LA size by volume 22+/-6 ml/m2. 8. The right atrium is normal in size. 9. Peak/mean gradient across the Aortic Valve is 8.49mmHg / 4.35mmHg. 10. Normally functioning bioprosthetic valve. 11. Mild mitral regurgitation is present. 12. Mild tricuspid regurgitation present. 13. Right ventricular systolic pressure is normal at < 35 mmHg. 14. The pulmonic valve was not well visualized. 15. The aortic root size is normal. 16. Normal inferior vena cava with normal inspiratory collapse consistent with estimated right atrial pressure of 5 mmHg. 17. There is no pericardial effusion. IT DESKTOP SUPPORT SPECIALIST: Christelle Alvarez RDCS
[2017-10-21 11:38] VITALS: PULSE 73
== END 2017-10-21 16:52 | disposition home or self-care (01) | DRG 312 ==
LOC: EC 10:41 → 6SEL 14:16
PROVIDERS: ADMIT Internal Medicine; ATTEND Internal Medicine
DX: I95.2 Hypotension due to drugs (principal); J90 Pleural effusion, not elsewhere classified; I48.0 Paroxysmal atrial fibrillation; T44.6X5A Adverse effect of alpha-adrenoreceptor antagonists, initial encounter; F32.9 Major depressive disorder, single episode, unspecified; E78.5 Hyperlipidemia, unspecified; I10 Essential (primary) hypertension; F41.9 Anxiety disorder, unspecified; Z79.51 Long term (current) use of inhaled steroids; Z79.899 Other long term (current) drug therapy; Z87.891 Personal history of nicotine dependence; Z95.2 Presence of prosthetic heart valve; Z97.4 Presence of external hearing-aid
CPT/HCPCS: 36415; 71046; 71275; 80048; 80053; 82550; 82553; 83735; 84484; 85025; 85027; 85379; 85610; 85730; 93005; 93306; 94760; 96361; 96374; 99285

== ENCOUNTER → 2019-10-25 | Outpatient (CLI) | payer MEDICARE ==
--- NOTE | 2019-10-25 12:38 | CT ---
EXAMINATION TYPE: CT brain wo con DATE OF EXAM: 10/25/2019 COMPARISON: None HISTORY: blurry vision CT DLP: 995.7 mGycm Automated exposure control for dose reduction was used. TECHNIQUE: CT scan of the head is performed without contrast. FINDINGS: There is no acute intracranial hemorrhage or midline shift identified. There is diffuse v entricular and sulcal prominence consistent with diffuse age-related cerebral atrophy. There is low- attenuation in the periventricular white matter consistent with chronic small vessel ischemic change. The globes are intact and the visualized sinuses are clear. Orbits are symmetric and lenses. Please . Extraocular muscles are also symmetric in their visualized portions. Inferior rectus muscles are no t seen. Partially empty sella turcica. IMPRESSION: No acute intracranial hemorrhage or midline shift. Visualized portions of the orbits ar e symmetric. Inferior rectus muscles are not visualized.
== END | disposition home or self-care (01) ==
LOC: RADCTMAIN 11:53
PROVIDERS: ATTEND Internal Medicine
DX: H53.461 Homonymous bilateral field defects, right side (principal)
CPT/HCPCS: 70450

== ENCOUNTER → 2019-11-02 | Outpatient (CLI) | payer MEDICARE ==
--- NOTE | 2019-11-02 11:35 | US ---
EXAMINATION TYPE: US carotid duplex BILAT DATE OF EXAM: 11/02/2019 COMPARISON: NONE CLINICAL HISTORY: H53.461, Z98.890, I10. HTN, vision changes with right eye EXAM MEASUREMENTS: RIGHT: Peak Systolic Velocity (PSV) cm/sec ----- Right CCA: 83.4 ----- Right ICA: 75.1 ----- Right ECA: 65.9 ICA/CCA ratio: 0.9 RIGHT: End Diastole cm/sec ----- Right CCA: 25.8 ----- Right ICA: 32.9 ----- Right ECA: 15.4 LEFT: Peak Systolic Velocity (PSV) cm/sec ----- Left CCA: 74.2 ----- Left ICA: 77.7 ----- Left ECA: 112 ICA/CCA ratio: 1.05 LEFT: End Diastole cm/sec ----- Left CCA: 17.6 ----- Left ICA: 32.5 ----- Left ECA: 23.0 VERTEBRALS (direction of flow): Right Vertebral: Antegrade Left Vertebral: Antegrade Rhythm: Normal Gibson scale images show mild to moderate peripheral plaque greatest at proximal right ICA. Velocity me asurements and ratios remain within normal limits and visualized portion of both internal carotid art eries. IMPRESSION: No hemodynamically significant stenosis seen in either internal carotid artery. Criteria for Assigning % of Stenosis / Diameter reduction (Estimation based on the indirect measurements of the internal carotid artery velocities (ICA PSV). 1. Normal (no stenosis)=ICA PSV < 125 cm/s: ratio < 2.0: ICA EDV<40 cm/s. 2. Less than 50% stenosis=ICA PSV < 125 cm/s: ratio < 2.0: ICA EDV<40 cm/s. 3. 50 to 69% stenosis=ICA PSV of 125 to 230 cm/s: ration 2.0 ? 4.0: ICA EDV 40-100 cm/s. 4. Greater than 70% stenosis to near occlusion= ICA PSV > 230 cm/s: ratio > 4.0: ICA EDV > 100 cm/s. 5. Near occlusion= ICA PSV velocities may be low or undetectable: variable ratio and ICA EDV. 6. Total occlusion=unable to detect flow.
== END | disposition home or self-care (01) ==
LOC: RADUSWWP 10:13
PROVIDERS: ATTEND Internal Medicine
DX: I10 Essential (primary) hypertension (principal); H53.461 Homonymous bilateral field defects, right side; Z98.890 Other specified postprocedural states
CPT/HCPCS: 93880

== ENCOUNTER 2020-06-08 10:59 | Emergency (ER) | payer OTHER, MEDICARE ==
[2020-06-08 11:11] VITALS: RESP 18
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
[2020-06-08 13:29] VITALS: BP 126/77; PULSE 82; TEMP 98.3
== END 2020-06-08 13:28 | disposition home or self-care (01) ==
LOC: EC 10:59
DX: S82.832A Other fracture of upper and lower end of left fibula, initial encounter for closed fracture (principal); S80.02XA Contusion of left knee, initial encounter; F32.9 Major depressive disorder, single episode, unspecified; I10 Essential (primary) hypertension; Z79.899 Other long term (current) drug therapy; Z95.5 Presence of coronary angioplasty implant and graft; Z95.4 Presence of other heart-valve replacement; V43.52XA Car driver injured in collision with other type car in traffic accident, initial encounter; Y92.410 Unspecified street and highway as the place of occurrence of the external cause
CPT/HCPCS: 99284

== ENCOUNTER → 2021-10-22 | Outpatient (CLI) | payer MEDICARE ==
[2021-10-22 18:59] LABS: Protein, Total 6.1 g/dL (6.2-8.2)
[2021-10-24 15:57] LABS: Albumin 3.68 g/dL (3.80-4.90); Gamma Globulin 0.61 g/dL (0.70-1.50)
== END | disposition home or self-care (01) ==
LOC: LABWHC1 10:28
PROVIDERS: ATTEND Internal Medicine
DX: E83.52 Hypercalcemia (principal)
CPT/HCPCS: 36415; 82306; 83970; 84165

== ENCOUNTER 2022-01-18 12:17 | Inpatient (IN) | payer MEDICARE ==
[2022-01-18] MEDS ORDERED: MIDAZOLAM 1 MG/ML 5 ML VIAL IV STA (12:34)
[2022-01-18 12:40] LABS: Basophils % (A) 0 %; Eosinophils % (A) 0 %; HCT 46.6 % (39.0-53.0); HGB 14.5 gm/dL (13.0-17.5); Lymphocytes # (A) 0.7 k/uL (1.0-4.8); Lymphocytes % (A) 4 %; MCH 29.7 pg (25.0-35.0); MCV 95.6 fL (80.0-100.0); Mean Platelet Volume 6.5; Monocytes # (A) 1.1 k/uL (0-1.0); Monocytes % (A) 6 %; Neutrophils % (A) 89 %; Platelet Count 378 k/uL (150-450); RBC 4.88 m/uL (4.30-5.90); RDW 12.6 % (11.5-15.5); WBC 17.9 k/uL (3.8-10.6)
[2022-01-18 12:46] LABS: Glucose,Whole Blood 142 mg/dL (70-110)
[2022-01-18 12:48] LABS: INR 0.9 (<1.2); Prothrombin Time 10.1 sec (9.0-12.0)
--- NOTE | 2022-01-18 13:01 | CT ---
EXAMINATION TYPE: CT brain julian cuevas con DATE OF EXAM: 01/18/2022 COMPARISON: 07/28/2020 HISTORY: 76-year-old male confusion, ams, unresponsive CT DLP: 1335.8 mGycm Automated exposure control for dose reduction was used. Technique: Examination of the head was done in axial plane without intravenous contrast. Coronal and sagittal reconstructions performed. CT of the cervical spine was obtained in axial plane without intravenous injection of contrast mater ial. Coronal and sagittal reformatted images were obtained from the axial views for evaluation of f ractures, spinal alignment and canal. FINDINGS: Head: There is no evidence of acute intracranial hemorrhage, acute ischemic changes, mass, mass-effect, or extra-axial fluid collection. There is no effacement of cerebral sulci or basal subarachnoid cister ns. There is no hydrocephalus. There is no midline shift. Gibson-white matter distinction is preserv ed. Mild generalized supratentorial volume loss. Unchanged encephalomalacia posterior left subinsular reg ion suggesting prior infarct. Other scattered calcifications within bilateral carotid siphons. Mild p eriventricular white matter hypodensities suggesting chronic small vessel ischemic disease. Partially empty sella. Paranasal sinuses and mastoid air cells well pneumatized. Orbits and globes are intact. Cervical spine: No craniocervical junction abnormality, predental space widening, or prevertebral soft tissue swellin g. Moderate to severe degenerative change C1 dens articulation. Moderate to advanced disc/endplate degenerative change especially C3-C7 levels. Multilevel facet and uncovertebral joint arthropathy. Degenerative grade 1 retrolisthesis C4-C5 and C5-C6 as well as C6-C7.. Variable mild spinal canal narrowing such as a C3-C4, C4-C5, C5-C6. No acute fracture of the cervical spine. Variable moderate bilateral neural foraminal stenoses throughout. Sagittal and coronal reformatted images confirm above findings. COMBINED IMPRESSION: 1. 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 No acute intracrani al abnormality seen. 2. No acute fracture of the cervical spine. Moderate to advanced spondylotic change with degenerative grade 1 retrolisthesis C4 through C7 levels. No acute fracture of the cervical spine.
[2022-01-18 13:03] LABS: Acetaminophen <10.0 ug/mL; African American GFR (CKD) 47 (>60 ml/min/1.73 sqM); Albumin 3.6 g/dL (3.5-5.0); Alcohol <10 mg/dL; Alkaline Phosphatase 80 U/L (38-126); Anion Gap 19 mmol/L; Blood Urea Nitrogen 19 mg/dL (9-20); Carbon Dioxide 13 mmol/L (22-30); Chloride 107 mmol/L (98-107); Creatine Kinase 80 U/L (55-170); Glucose 152 mg/dL (74-99); Non-African American GFR(CKD) 40 (>60 ml/min/1.73 sqM); Potassium 4.3 mmol/L (3.5-5.1); Salicylate <1.0 mg/dL; Sodium 139 mmol/L (137-145); Total Bilirubin 0.3 mg/dL (0.2-1.3); Total Protein 6.3 g/dL (6.3-8.2)
[2022-01-18 13:19] LABS: Amorphous Sediment,Urine Occasional /hpf; Appearance,Urine Cloudy (Clear); Bacteria,Urine Rare /hpf; Bilirubin,Urine Negative (Negative); Blood,Urine Moderate (Negative); Color,Urine Yellow; Glucose,Urine (UA) Negative (Negative); Ketones,Urine Negative (Negative); Leukocyte Esterase,Urine Large (Negative); Nitrite,Urine Negative (Negative); PH, Urine 5.5 (5.0-8.0); Protein,Urine 1+ (Negative); RBC,Urine 21 /hpf (0-5); Specific Gravity,Urine 1.013 (1.001-1.035); Squamous Epithelial Cell,Urine 1 /hpf (0-4); Urobilinogen,Urine <2.0 mg/dL (<2.0); WBC,Urine >182 /hpf (0-5)
[2022-01-18] MEDS ORDERED: LORazepam 2 MG/ML INJ IV STA (13:20)
[2022-01-18 13:22] LABS: Partial Thromboplastin Time 21.7 sec (22.0-30.0)
[2022-01-18 13:27] LABS: ALT 26 U/L (4-49); AST 34 U/L (17-59)
[2022-01-18 13:38] LABS: Amphetamine Screen,Urine Not Detected (NotDetected); Barbiturate Screen,Urine Not Detected (NotDetected); Benzodiazepines Screen,Urine Not Detected (NotDetected); Cocaine Screen,Urine Not Detected (NotDetected); Methadone Screen, Urine Not Detected (NotDetected); Opiate Screen,Urine Not Detected (NotDetected); Oxycodone Screen, Urine Not Detected (NotDetected); Phencyclidine Screen,Urine Not Detected (NotDetected); Tricyclic Antidepressant,Urine Not Detected (NotDetected); Urn Cannabinoid Scrn Not Detected (NotDetected)
[2022-01-18] MEDS ORDERED: cefTRIAXone IN SWFI 1,000 MG/10 ML SYRINGE IVP STA (13:39)
[2022-01-18] MEDS ORDERED: diphenhydrAMINE 50 MG/ML 1 ML VIAL IVP STA (13:46)
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
[2022-01-18] MEDS ORDERED: NALOXONE 0.4 MG/ML 1 ML VIAL IV PRN (14:00)
[2022-01-18] MEDS ORDERED: levETIRAcetam IV 500 MG in SODIUM CHLORIDE 0.9% 100 ML IVPB STA (14:07)
--- NOTE | 2022-01-18 14:08 | XR ---
EXAMINATION TYPE: XR chest 1V portable DATE OF EXAM: 01/18/2022 COMPARISON: [id number] INDICATION: Altered mental status TECHNIQUE: Single frontal view of the chest is obtained. FINDINGS: The heart size is normal. The pulmonary vasculature is normal. The lungs are clear. IMPRESSION: 1. No acute pulmonary process.
[2022-01-18] MEDS ORDERED: ACETAMINOPHEN TAB 325 MG TAB PO PRN (16:44)
[2022-01-18] MEDS ORDERED: ONDANSETRON 4 MG/2 ML VIAL IVP PRN (16:44)
[2022-01-18] MEDS ORDERED: levETIRAcetam IV 1,000 MG in SALINE 1 100ML.BAG IVPB STA (16:59)
[2022-01-18] MEDS ORDERED: HEPARIN SODIUM,PORCINE/PF 5,000 UNIT/0.5 ML SYRINGE SQ SCH (17:00)
[2022-01-18] MEDS ORDERED: PHENYTOIN SODIUM INJ 1,500 MG in SODIUM CHLORIDE 0.9% 100 ML IVPB STA (17:09)
--- NOTE | 2022-01-18 17:25 | P.HPIM ---
History of Present Illness H&P Date: 01/18/22 Chief Complaint: unresponsiveness Patient is a 76-year-old male with a history of hypertension, prior TIAs, prior episode of transient global amnesia in 2020, and difficulty hearing who presented to the ER after being found unresponsive by his daughter. He was sent in via EMS and had a reported seizure in route. Patient was given Versed. In the ER he underwent an extensive evaluation. Initial laboratory analysis showed white blood cell count of 17, carbon dioxide of 13 with an anion gap of 19, creatinine 1.63 (up from his baseline of 1.4), and mildly elevated troponin of 0.049. Urine drug screen was negative, salicylates negative, alcohol negative. Urinalysis was consistent with urinary tract infection. 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 In the ER he was loaded with Keppra and given a dose of Rocephin. Arrangements were made for admission. Per ER physician had been becoming more arousable was extremely agitated and did require an additional dose of Ativan. Patient seen and examined at bedside in the ED. He is still very agitated and not speaking or following commands. Daughter is at bedside who found him this morning around 11 am. He was on the floow with eyes open but not moving, speaking, or following commands. It did look like he ate breakfast. He had a black eye on the right. She states he had blood at his mouth. No loss of bowel or bladder at that time. Daughter reports that she was at his house last night and he was normal about 8:30 pm. Per family he rarely drinks alcohol. No recent illness and was not complaining of anything significant last night- no fevers, headache, chest pain. Pertinent positives and negatives as discussed in HPI, a complete review of systems was performed and all other systems are negative. Vital signs reviewed General: nontoxic, no distress, appears at stated age Derm: ecchymosis around right orbit, warm, dry Head: normocephalic, symmetric Eyes: EOMI, no lid lag, anicteric sclera, pupils equal round reactive to light ENT: Nose and ears atraumatic, no thrush, ecchymosis left side of tougue, poor dentition Neck: No thyromegaly, no cervical lymphadenopathy, trachea midline, supple Mouth: no lip lesion, mucus membranes moist Cardiovascular: S1S2 reg, no murmur, positive posterior tibial pulse bilateral, no edema, capillary refill less than 2 seconds Lungs: clear to auscultation bilateral, no rhonchi, no rales, no wheeze, no accessory muscle use Abdominal: soft, nontender to palpation, no guarding, no appreciable or ganomegaly, normal bowel sounds Ext: no gross muscle atrophy, no contractures, no fasciulations Neuro: CN II-XII grossly intact, no following commands, no tremors Psych: Awake, not speaking, not following commands, attempts to strike me when I listen to him, will not open mouth, no following commands Assessment/Plan: New onset seizure Prolonged post-ictal state with altered mentation - MRI, EEG - D/W neurology: concern for possible status and herpes encephalitis. Will consult anesthesia for LP, Load with Keppra and dilantin - neuro checks - seizure precautions Elevated troponin - likely reflective of acute stressor - consult cardio - ASA - follow troponin - tele - echo in AM UTI, POA - rocephin, await culture CKD III - IVF - No quite diagnositic of FARA but will need to monitor Ecchymosis, left eye - supportive care HX: Prior TIA Prior transient global amnesia HTN Aortic stenosis, s/p replacement The patient is admitted with an anticipated greater than 2 midnight stay for evaluation of seizure Surrogate decision-maker: son If does not answer then Radha Leiva , then daughter in law June CODE STATUS:full DVT prophylaxis: heparin Discussed with: Patient, nursing , ED provider, Neurology Anticipated discharge date: pending clinical course Anticipated discharge place: pending clinical course A total of 75 minutes was spent on the care of this complex patient more than 50% of the time was spent in counseling and care coordination. Past Medical History Past Medical History: Hypertension, Syncope Additional Past Medical History / Comment(s): aortic stenosis, murmur, [place] wears hearing aids oneal, TIA, Transient global amnesia History of Any Multi-Drug Resistant Organisms: None Reported Past Surgical History: Cardiac Valve Replacement, Heart Catheterization Additional Past Surgical History / Comment(s): LUIS Past Anesthesia/Blood Transfusion Reactions: No Reported Reaction Additional Past Anesthesia/Blood Transfusion Reaction / Comment(s): has never had anesthesia Past Psychological History: Depression Smoking Status: Never smoker Past Alcohol Use History: None Reported, Rare Past Drug Use History: None Reported - Past Family History Father Family Medical History: Cancer Mother Family Medical History: Myocardial Infarction ([place]) Additional Family Medical History / Comment(s): pt stated his mom, grandmother and great grandmother had heart problems Medications and Allergies Home Medications Medication Instructions Recorded Confirmed Type buPROPion HCL [Wellbutrin XL] 300 mg PO DAILY 02/20/17 01/18/22 History Lisinopril-Hctz 20-25 mg 1 tab PO DAILY 06/08/20 01/18/22 History [Zestoretic 20-25] Metoprolol Tartrate [Lopressor] 25 mg PO BID 06/08/20 01/18/22 History Allergies Allergy/AdvReac Type Severity Reaction Status Date / Time No Known Allergies Allergy Verified 01/18/22 12:56 Physical Exam Osteopathic Statement: *. No significant issues noted on an osteopathic structural exam other than those noted in the History and Physical/Consult. Vitals: Vital Signs Temp Pulse Resp BP Pulse Ox 01/18/22 13:06 97 16 153/96 97 01/18/22 12:18 98.3 F 106 H 10 L 160/87 97 Intake and Output 01/18/22 01/18/22 01/18/22 06:59 14:59 22:59 Other: Weight 74.843 kg Results CBC & Chem 7: 01/18/22 12:20 01/18/22 12:20 Labs: Abnormal Lab Results - Last 24 Hours (Table) 01/18/22 01/18/22 01/18/22 Range/Units 12:20 12:20 12:20 WBC 17.9 H (3.8-10.6) k/uL Neutrophils # 16.0 H (1.3-7.7) k/uL Lymphocytes # 0.7 L (1.0-4.8) k/uL Monocytes # 1.1 H (0-1.0) k/uL APTT 21.7 L (22.0-30.0) sec Carbon Dioxide 13 L (22-30) mmol/L Creatinine 1.63 H (0.66-1.25) mg/dL Glucose 152 H (74-99) mg/dL POC Glucose (mg/dL) (70-110) mg/dL Troponin I (0.000-0.034) ng/mL Urine Protein (Negative) Urine Blood (Negative) Ur Leukocyte Esterase (Negative) Urine RBC (0-5) /hpf Urine WBC (0-5) /hpf Urine WBC Clumps (None) /hpf Amorphous Sediment (None) /hpf Urine Bacteria (None) /hpf 01/18/22 01/18/22 01/18/22 Range/Units 12:20 12:25 12:53 WBC (3.8-10.6) k/uL Neutrophils # (1.3-7.7) k/uL Lymphocytes # (1.0-4.8) k/uL Monocytes # (0-1.0) k/uL APTT (22.0-30.0) sec Carbon Dioxide (22-30) mmol/L Creatinine (0.66-1.25) mg/dL Glucose (74-99) mg/dL POC Glucose (mg/dL) 142 H (70-110) mg/dL Troponin I 0.049 H* (0.000-0.034) ng/mL Urine Protein 1+ H (Negative) Urine Blood Moderate H (Negative) Ur Leukocyte Esterase Large H (Negative) Urine RBC 21 H (0-5) /hpf Urine WBC >182 H (0-5) /hpf Urine WBC Clumps Occasional H (None) /hpf Amorphous Sediment Occasional H (None) /hpf Urine Bacteria Rare H (None) /hpf
[2022-01-18] MEDS: ASPIRIN 81 MG PO SCH (20:13)
[2022-01-18] MEDS ORDERED: HEPARIN SODIUM 1,000 UN/ML (10ML VL) IV ONE (21:55)
[2022-01-18] MEDS: METOPROLOL TARTRATE 25 MG TAB PO SCH (21:58)
[2022-01-18] MEDS ORDERED: VANCOMYCIN IV PER PHARMACY 1 EACH MISC MISCELLANE PRN (21:58)
[2022-01-18] MEDS: PIPERACILLIN-TAZOBACTAM 3.375 GM in SODIUM CHLORIDE 0.9% 100 ML IVPB SCH (22:03)
[2022-01-18] MEDS: HEPARIN SOD,PORK IN 0.45% NACL 25,000 UNIT in 0.45% NACL 1 250ML.BAG IV SCH (22:03)
[2022-01-18] MEDS ORDERED: VANCOMYCIN 1,250 MG in SODIUM CHLORIDE 0.9% 250 ML IVPB ONE (22:15)
[2022-01-18 23:09] LABS: Basophils % (A) 0 %; Eosinophils % (A) 0 %; HGB 13.5 gm/dL (13.0-17.5); Lymphocytes # (A) 0.8 k/uL (1.0-4.8); Lymphocytes % (A) 5 %; MCHC 32.2 g/dL (31.0-37.0); MCV 93.1 fL (80.0-100.0); Mean Platelet Volume 6.4; Monocytes # (A) 1.7 k/uL (0-1.0); Monocytes % (A) 9 %; Neutrophils # (A) 14.7 k/uL (1.3-7.7); Neutrophils % (A) 84 %; Platelet Count 330 k/uL (150-450); RBC 4.51 m/uL (4.30-5.90); RDW 12.9 % (11.5-15.5); WBC 17.6 k/uL (3.8-10.6)
[2022-01-18 23:17] LABS: INR 1.1 (<1.2); Partial Thromboplastin Time 48.1 sec (22.0-30.0); Prothrombin Time 11.4 sec (9.0-12.0)
[2022-01-18] MEDS ORDERED: SODIUM CHLORIDE 0.9% 1,000 ML IV ONE (23:23)
[2022-01-18] MEDS: SODIUM CHLORIDE 0.9% 1,000 ML IV SCH (23:55)
[2022-01-19] MEDS: PIPERACILLIN-TAZOBACTAM 3.375 GM in SODIUM CHLORIDE 0.9% 100 ML IVPB SCH ×3 (05:23→22:00)
[2022-01-19 07:54] LABS: Basophils % (A) 0 %; Eosinophils # (A) 0.1 k/uL (0-0.7); Eosinophils % (A) 1 %; HCT 41.7 % (39.0-53.0); HGB 13.3 gm/dL (13.0-17.5); Lymphocytes # (A) 0.7 k/uL (1.0-4.8); Lymphocytes % (A) 4 %; MCH 30.2 pg (25.0-35.0); MCHC 31.9 g/dL (31.0-37.0); MCV 94.7 fL (80.0-100.0); Mean Platelet Volume 6.7; Monocytes # (A) 1.2 k/uL (0-1.0); Monocytes % (A) 8 %; Neutrophils # (A) 12.7 k/uL (1.3-7.7); Neutrophils % (A) 85 %; Platelet Count 278 k/uL (150-450); RDW 12.8 % (11.5-15.5); WBC 14.9 k/uL (3.8-10.6)
--- NOTE | 2022-01-19 07:59 | P.CNNES ---
History of Present Illness Consult date: 01/18/22 Requesting physician: Estelle Rice Reason for Consult: New onset seizure History of Present Illness: Patient is a 76-year-old male came to the hospital by ambulance today at 12:17 PM. As per EMS for sheet, when they arrived patient was with family and [facility] department personnel. Per family they came to check on patient and found him on the floor. Family last spoke with patient late yesterday afternoon. Patient had no complaints at that time. Patient was awake, nonverbal, moving extremities to push providers aside. Patient was noted to have contusion besides right eye, small abrasion on top of head. No other injuries noted. Patient's blood glucose was 156 mg/dL. During transport, patient had full body tonic clonic seizure, lasting 30-45 seconds. Seizures subsided without medication. Patient's blood pressure at the scene was 150/100, pulse rate 104, respiration 8, saturation 98%. Vital signs on arrival blood pressure 160/87, temperature 98.3. Blood test shows WBC 17.9 hemoglobin 14.5, platelets 378. Electrolytes are normal, BUN 19, creatinine 1.63. Hepatic panel normal, troponin borderline 0.049. TSH normal, UA shows moderate blood, large amount of leukocyte Estrace, > 182 WBC, urine drug screen negative, blood alcohol level, Tylenol and salicylate levels negative. 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 No acute intracranial abnormality seen. I personally reviewed CT head, the encephalomalacia is not very prominent, however there is definite prominence of the temporal horn of the left lateral ventricle. No acute process. No acute fracture of the cervical spine. Moderate to advanced spondylotic change with degenerative grade 1 retrolisthesis C4 through C7 levels. No acute fracture of the cervical spine. Patient's blood test shows elevated white cells 17.9, normal hemoglobin, platelets 378, normal INR, electrolytes normal, BUN 19, creatinine 1.63. Hepatic panel is normal, troponin borderline 0.049, prolactin 20.2 which is elevated. UA shows large amount of leukocyte Estrace, > 182 WBC, urine drug screen negative. Blood alcohol level negative. Lactate is elevated 3.7 Patient at present appears extremely restless, somewhat agitated, thrashing in the bed. Please refer to examination below. Patient's daughter was present at this time, who states that she saw him last night at 8:30 PM when he was perfectly normal. At 11 AM she went in to check on him and was unresponsive as mentioned above. She states that he had "a few mini strokes" in the past. Patient has history of hypertension, but no diabetes. He does not smoke. Rarely drinks alcohol. No history of head injury in the past. He lives by himself. on review of records, it appears patient was seen by Dr. Garry Schuler on 10/2020 when he was found outside by a neighbor. He was found down outside in the cold in his pajamas barefoot near his mailbox. Patient at that time had remembered taking his medication for blood pressure metoprolol and the next thing he remembers is waking up in the hospital. Patient was on Wellbutrin at that time. It was felt patient has syncope related to his previous history of aortic stenosis although seizure could not be ruled out. Patient had a brain MRI, which revealed cerebral atrophy, mild white matter changes around the lateral ventricles probably due to minimal microvascular ischemia. No cortical infarct. Patient had a normal EEG on 07/29/2020. patient was not placed on any antiepileptic medication, as this was the first event and the workup was negative. However long-term EEG as outpatient was recommended. Review of Systems ROS unobtainable: due to mental status Past Medical History Past Medical History: Hypertension, Syncope Additional Past Medical History / Comment(s): aortic stenosis, murmur, elim ir[place] wears hearing aids oneal. History of Any Multi-Drug Resistant Organisms: None Reported Past Surgical History: Cardiac Valve Replacement, Heart Catheterization Additional Past Surgical History / Comment(s): LUIS Past Anesthesia/Blood Transfusion Reactions: No Reported Reaction Additional Past Anesthesia/Blood Transfusion Reaction / Comment(s): has never had anesthesia Past Psychological History: Depression Smoking Status: Never smoker Past Alcohol Use History: None Reported Past Drug Use History: None Reported - Past Family History Father Family Medical History: Cancer Mother Family Medical History: Myocardial Infarction ([place]) Additional Family Medical History / Comment(s): pt stated his mom, grandmother and great grandmother had heart problems Medications and Allergies Home Medications Medication Instructions Recorded Confirmed Type buPROPion HCL [Wellbutrin XL] 300 mg PO DAILY 02/20/17 01/18/22 History Lisinopril-Hctz 20-25 mg 1 tab PO DAILY 06/08/20 01/18/22 History [Zestoretic 20-25] Metoprolol Tartrate [Lopressor] 25 mg PO BID 06/08/20 01/18/22 History Allergies Allergy/AdvReac Type Severity Reaction Status Date / Time No Known Allergies Allergy Verified 01/18/22 12:56 Physical Examination - Vital Signs Vital Signs: Vital Signs Temp Pulse Resp BP Pulse Ox 01/18/22 13:06 97 16 153/96 97 01/18/22 12:18 98.3 F 106 H 10 L 160/87 97 Intake and Output 01/18/22 01/18/22 01/18/22 06:59 14:59 22:59 Other: Weight 74.843 kg Patient is an elderly male, who appears severely encephalopathic. He is thrashing in the bed. He is very restless, sometimes becomes quiet, but then on alerting, becomes restless, thrashes. He just repeats "just help me get up". He would say "what" for any questions asked. He becomes agitated, trying to hit/swing arm on his daughter and myself. His hands are placed in a mitten. Patient is encephalopathic, not able to answer questions for orientation. Limited speech is clear. No dysarthria or paraphasic errors. Attention, concentration and fund of knowledge is severely limited. On cranial examination, pupils are equal, round and reacting to light, visual esparza could not be tested, but he does acknowledge both sides of his visual esparza. His extraocular muscles appears intact. No obvious nystagmus in the primary gaze. Face is symmetric, did not protrude his tongue, but there is evidence of tongue bite sonia visible on the side of his tongue. Palatal elevation, hearing, shoulder shrug and facial sensations cannot be checked. On muscle strength testing, patient's both hands are in a mitten. He is moving all 4 extremities equally with normal strength. He is swinging his arms when he becomes agitated. Almost sometimes appearing athetoid type movements. Deep tendon reflexes cannot be checked, as he starts thrashing, tries to hit. He is very sensitive to plantar stimulation and withdraws. Sensory and cerebellar functions cannot be tested. Tone and bulk of muscles normal. Gait not able to be checked On general examination, he did not cooperate with testing for his any bruit, heart sounds, or abdominal testing. No rash. No peripheral edema. Neck could not be tested because of his noncooperation Results - Laboratory Findings CBC and BMP: 01/18/22 22:47 01/18/22 12:20 Abnormal Lab Findings: Abnormal Labs 01/18/22 01/18/22 01/18/22 12:20 12:20 12:20 WBC 17.9 H Neutrophils # 16.0 H Lymphocytes # 0.7 L Monocytes # 1.1 H APTT 21.7 L Carbon Dioxide 13 L Creatinine 1.63 H Glucose 152 H POC Glucose (mg/dL) Troponin I Urine Protein Urine Blood Ur Leukocyte Esterase Urine RBC Urine WBC Urine WBC Clumps Amorphous Sediment Urine Bacteria 01/18/22 01/18/22 01/18/22 12:20 12:25 12:53 WBC Neutrophils # Lymphocytes # Monocytes # APTT Carbon Dioxide Creatinine Glucose POC Glucose (mg/dL) 142 H Troponin I 0.049 H* Urine Protein 1+ H Urine Blood Moderate H Ur Leukocyte Esterase Large H Urine RBC 21 H Urine WBC >182 H Urine WBC Clumps Occasional H Amorphous Sediment Occasional H Urine Bacteria Rare H Assessment and Plan Assessment: * 76-year-old male who was found on the floor, unresponsive (intact vitals), then had a witnessed seizure by the security supervisor staff in the ambulance. New onset seizure. * Severe encephalopathy, rule out postictal confusion versus partial status epilepticus * Patient had similar presentation on 07/28/2020 (found down outside in the cold by the mailbox), was felt to be a syncopal spell versus seizure. Workup was negative. * Acute UTI * Elevated cardiac enzymes * Moderate renal insufficiency. * Leukocytosis, with borderline temperature, rule out encephalitis. * Hypertension * Hard of hearing, uses hearing aid * History of aortic stenosis, status post valve replacement in 2018 Plan: * Patient in the ER has received Keppra 500 mg IV. At present concerning for partial status epilepticus versus postictal state. * Stat EEG will not be available until morning. Therefore we will empirically l oad with Dilantin 1500 mg x1dose. * Continue Keppra at 1000 mg IV twice a day * Patient has somewhat similar presentation on 07/28/2020, therefore seizure with postictal state likely possibility. Encephalitis less likely (patient afebrile). Leukocytosis could be explained from acute UTI. * Lumbar puncture, rule out meningitis encephalitis * Dilantin level in the morning * Continue close neuro checks. * Cardiology on board for elevated cardiac enzymes. * Neurology will continue to follow. Discussed in detail with primary physician, as well as patient's daughter in detail. * Thank you for the consult.
[2022-01-19] MEDS ORDERED: ACYCLOVIR SODIUM 500 MG in SODIUM CHLORIDE 0.9% 100 ML IVPB SCH (08:00)
[2022-01-19 08:09] LABS: Calcium 8.8 mg/dL (8.4-10.2); Potassium 3.8 mmol/L (3.5-5.1)
[2022-01-19] MEDS: SODIUM CHLORIDE 0.9% 1,000 ML IV SCH ×2 (08:09→12:52)
[2022-01-19 08:11] LABS: INR 1.1 (<1.2); Partial Thromboplastin Time 64.9 sec (22.0-30.0); Prothrombin Time 11.6 sec (9.0-12.0)
[2022-01-19] MEDS: ACYCLOVIR SODIUM 750 MG in SODIUM CHLORIDE 0.9% 100 ML IVPB SCH ×2 (08:14→19:47)
[2022-01-19] MEDS: levETIRAcetam IV 1,000 MG in SALINE 1 100ML.BAG IVPB SCH ×2 (08:15→19:47)
[2022-01-19] MEDS: ASPIRIN 81 MG PO SCH (08:18)
[2022-01-19] MEDS: METOPROLOL TARTRATE 25 MG TAB PO SCH ×2 (08:18→21:32)
[2022-01-19] MEDS: LISINOPRIL-HCTZ 20-25 MG 1 EACH TAB PO SCH (08:18)
--- NOTE | 2022-01-19 11:57 | CA ---
Transthoracic Echo Report Name: Dario Hodges Age: 76 Gender: M : 1945 Exam Date: 01/19/2022 09:58 Exam Location: [facility] Ht (in): 66 Wt (lb): 165 Ordering Physician: Delaney Dawn DO Attending/Referring Phys: [id number], Nereyda Head Orthopedic Team Physician Christelle Alvarez, LAYNE Procedure CPT: Indications: elevated troponin Cardiac Hx: Technical Quality: Fair Contrast 1: Total Dose (mL): Contrast 2: Total Dose (mL): MEASUREMENTS (Male / Female) Normal Values 2D ECHO LV Diastolic Diameter PLAX 3.3 cm 4.2 - 5.9 / 3.9 - 5.3 cm LV Systolic Diameter PLAX 2.3 cm IVS Diastolic Thickness 1.1 cm 0.6 - 1.0 / 0.6 - 0.9 cm LVPW Diastolic Thickness 1.0 cm 0.6 - 1.0 / 0.6 - 0.9 cm LV Relative Wall Thickness 0.7 RV Internal Dim ED PLAX 2.9 cm LA Systolic Diameter LX 2.7 cm 3.0 - 4.0 / 2.7 - 3.8 cm LA Volume 27.6 cm??? 18 - 58 / 22 - 52 cm??? M-MODE Aortic Root Diameter MM 2.7 cm MV E Point Septal Separation 0.8 cm AV Cusp Separation MM 1.4 cm DOPPLER AV Peak Velocity 132.0 cm/s AV Peak Gradient 7.0 mmHg MV Area PHT 7.2 cm??? Mitral E Point Velocity 103.7 cm/s Mitral A Point Velocity 118.0 cm/s Mitral E to A Ratio 0.9 MV Deceleration Time 105.2 ms MV E' Velocity 8.0 cm/s Mitral E to MV E' Ratio 13.0 TR Peak Velocity 258.7 cm/s TR Peak Gradient 26.8 mmHg Right Ventricular Systolic Press 31.8 mmHg FINDINGS Left Ventricle Left ventricular ejection fraction is estimated at 55-60 %. Left ventricular cavity size normal. Left ventricular wall thickness normal. Right Ventricle Normal right ventricular size and function. Right ventricular systolic pressure within normal limits. Right Atrium Normal right atrial size. Left Atrium Normal left atrial size. No evidence for an atrial septal defect. Mitral Valve Trace mitral regurgitation. Aortic Valve Trileaflet aortic valve. No aortic valve stenosis or regurgitation. Tricuspid Valve Mild tricuspid regurgitation. Pulmonic Valve Structurally normal pulmonic valve. Pericardium Normal pericardium. No pericardial effusion. Aorta Normal size aortic root and proximal ascending aorta. CONCLUSIONS Normal left ventricular ejection fraction 55-60% Trace mitral regurgitation Mild tricuspid regurgitation No pericardial effusion Previewed by: Dr. Kushal Gilmore DO (Electronically Signed) Final Date: 19 January 2022 11:56
[2022-01-19] MEDS ORDERED: LORazepam 2 MG/ML INJ IV STA (13:11)
--- NOTE | 2022-01-19 13:16 | EEG ---
ELECTROENCEPHALOGRAM REPORT DATE OF SERVICE: 01/19/2022 PREAMBLE: This is a 76-year-old male with new-onset seizure. This study is performed to evaluate for any epileptiform activity, rule out herpes encephalitis. EEG FINDINGS: This is a 21-channel digital EEG recorded with video competent, utilizing 10/20 international system with referential and bipolar montages. Background consists of moderately well-developed and regulated mixed frequencies of 6 hertz theta intermixed with fast frequency beta activity seen in bihemispheric region. Background does not seem to be reactive to eye opening or closing. Frequent myogenic activity and movement artifacts were seen during the study. Photic stimulation and hyperventilation were not performed. Different stages of sleep were not seen. No focal or generalized epileptiform activity was seen. EKG channel showed no arrhythmia. IMPRESSION: This is an abnormal EEG due to background slowing of moderate degree. This is suggestive of generalized cerebral dysfunction as can be seen with toxic metabolic encephalopathy or due to diffuse structural brain abnormality. Clinical correlation recommended. No epileptiform activity was seen. MMODL / IJN: [id number] /
--- NOTE | 2022-01-19 13:31 | P.CRDCN ---
History of Present Illness History of present illness: HISTORY OF PRESENTING ILLNESS Patient is pleasant 76-year-old male with history of hypertension, aortic valve replacement 2018, prior syncope, isolated A. fib episode after a refill replacem ent, prior transient ankle if needed 2020 who presents secondary to seizure and being unresponsive. Apparently daughter found patient unresponsive and in the EMS patient had a seizure and was given Versed. He remains confused however states he does not have any significant chest pain or shortness breath. He is on seizure precautions and additionally in soft restraints. Cardiology has been consult it secondary to elevated troponins. Showed white blood cell count 17.9, hemoglobin 14.5, troponin 0.04, 0.10, 0.16, creatinine 1.6 down to 1.5, lactic acid 3.7. Noted to have temperature 100.5. EKG shows sinus rhythm with normal axis, nonspecific minimal ST depressions in the inferior and lateral leads. Echocardiogram shows ejection fraction 55-60% with no significant abnormalities. REVIEW OF SYSTEMS At the time of my exam: Poor historian however denies any chest pain pressure or shortness breath. PHYSICAL EXAMINATION Vital signs reviewed. CONSTITUTIONAL: No apparent distress. HEENT: Head is normocephalic. Pupils are equal, round. Sclerae anicteric. Mucous membranes of the mouth are moist. No JVD. No carotid bruit. CHEST EXAMINATION: Lungs are clear to auscultation. No chest wall tenderness is noted on palpation or with deep breathing. HEART EXAMINATION: Regular rate and rhythm. S1, S2 heard. No murmurs, gallops or rub. ABDOMEN: Soft, nontender. Positive bowel sounds. EXTREMITIES: 2+ peripheral pulses, no lower extremity edema and no calf tenderness. NEUROLOGIC EXAMINATION: Patient is awake, alert and oriented x3. ASSESSMENT 1. Non-STEMI, type II mechanism related to seizure, sepsis, acute kidney injury and lactic acidosis 2. Preserved left ventricular ejection fraction 55-60% 3. Sepsis 4. Lactic acidosis 5. History of aortic valve replacement 6. Altered mental status 7. Witnessed seizure PLAN Patient without any significant angina-type symptoms and mildly elevated troponins related to acute kidney injury, seizure, lactic acidosis and likely sepsis. Await blood cultures. Continue with supportive care. Continue metoprolol 25 twice a day. If patient has significant bacteremia may consider LUIS however no indication currently. No further recommendations from cardiology standpoint. Please call with any questions. Past Medical History Past Medical History: Hypertension, Syncope Additional Past Medical History / Comment(s): aortic stenosis, murmur, [place] wears hearing aids oneal. History of Any Multi-Drug Resistant Organisms: None Reported Past Surgical History: Cardiac Valve Replacement, Heart Catheterization Additional Past Surgical History / Comment(s): LUIS Past Anesthesia/Blood Transfusion Reactions: No Reported Reaction Additional Past Anesthesia/Blood Transfusion Reaction / Comment(s): has never had anesthesia Past Psychological History: Depression Smoking Status: Never smoker Past Alcohol Use History: None Reported Past Drug Use History: None Reported - Past Family History Father Family Medical History: Cancer Mother Family Medical History: Myocardial Infarction ([place]) Additional Family Medical History / Comment(s): pt stated his mom, grandmother and great grandmother had heart problems Medications and Allergies Home Medications Medication Instructions Recorded Confirmed Type buPROPion HCL [Wellbutrin XL] 300 mg PO DAILY 02/20/17 01/18/22 History Lisinopril-Hctz 20-25 mg 1 tab PO DAILY 06/08/20 01/18/22 History [Zestoretic 20-25] Metoprolol Tartrate [Lopressor] 25 mg PO BID 06/08/20 01/18/22 History Allergies Allergy/AdvReac Type Severity Reaction Status Date / Time No Known Allergies Allergy Verified 01/18/22 12:56 Physical Exam Vitals: Vital Signs Temp Pulse Pulse Resp BP BP Pulse Ox 01/19/22 12:00 95 01/19/22 11:59 97.8 F 95 18 137/74 97 01/19/22 08:00 97.8 F 84 18 129/70 98 01/19/22 04:00 97.6 F 100 18 143/72 98 01/18/22 23:42 99.6 F 115 H 20 124/74 91 L 01/18/22 21:30 99 F 115 H 20 104/58 95 01/18/22 19:37 100.5 F H 130 H 20 140/83 98 Intake and Output 01/18/22 01/19/22 01/19/22 22:59 06:59 14:59 Output Total 800 Balance -800 Output: Urine 800 Other: Weight 74.843 kg Results 01/19/22 07:33 01/19/22 07:33 Cardiac Enzymes 01/18/22 01/18/22 01/18/22 Range/Units 12:20 12:20 15:45 AST 34 (17-59) U/L Troponin I 0.049 H* 0.104 H* (0.000-0.034) ng/mL 01/18/22 Range/Units 18:54 AST (17-59) U/L Troponin I 0.162 H* (0.000-0.034) ng/mL Coagulation 01/18/22 01/18/22 01/19/22 Range/Units 12:20 22:47 07:33 PT 10.1 11.4 11.6 (9.0-12.0) sec APTT 21.7 L 48.1 H 64.9 H (22.0-30.0) sec CBC 01/18/22 01/19/22 Range/Units 22:47 07:33 WBC 17.6 H 14.9 H (3.8-10.6) k/uL RBC 4.51 4.40 (4.30-5.90) m/uL Hgb 13.5 13.3 (13.0-17.5) gm/dL Hct 42.0 41.7 (39.0-53.0) % Plt Count 330 278 (150-450) k/uL Comprehensive Metabolic Panel 01/18/22 01/19/22 Range/Units 12:20 07:33 Sodium 139 140 (137-145) mmol/L Potassium 4.3 3.8 (3.5-5.1) mmol/L Chloride 107 113 H (98-107) mmol/L Carbon Dioxide 13 L 22 (22-30) mmol/L BUN 19 22 H (9-20) mg/dL Creatinine 1.63 H 1.51 H (0.66-1.25) mg/dL Glucose 152 H 127 H (74-99) mg/dL Calcium 10.0 8.8 (8.4-10.2) mg/dL AST 34 (17-59) U/L ALT 26 (4-49) U/L Alkaline Phosphatase 80 (38-126) U/L Total Protein 6.3 (6.3-8.2) g/dL Albumin 3.6 (3.5-5.0) g/dL Current Medications Generic Name Dose Route Start Last Admin Trade Name Freq PRN Reason Stop Dose Admin Acetaminophen 650 mg 01/18/22 16:44 Acetaminophen Tab 325 Mg Tab PO Q6HR PRN Mild Pain or Fever > 100.5 Aspirin 81 mg 01/18/22 17:30 01/19/22 08:18 Aspirin 81 Mg PO 81 mg DAILY ZAY Administration Lisinopril/HCTZ 1 each 01/19/22 09:00 01/19/22 08:18 Lisinopril-Hctz 20-25 Mg 1 Each Tab PO 1 each DAILY ZAY Administration Heparin Sodium (Porcine) 0 unit 01/18/22 21:55 Heparin Sodium 1,000 Un/Ml (10ml Vl) IV PER PROTOCOL PRN Low PTT Protocol Levetiracetam 1,000 mg/ IV 100 mls @ 400 mls/hr 01/19/22 09:00 01/19/22 08:15 Solution IVPB 400 mls/hr Q12HR ZAY Administration Heparin Sodium/Sodium Chloride 250 mls @ 8.981 mls/hr 01/18/22 22:00 01/18/22 22:03 25,000 unit/ Sodium Chloride IV 12 units/kg/hr .Q24H ZAY 8.981 mls/hr Administration Protocol 12 UNITS/KG/HR Piperacillin Sod/Tazobactam 100 mls @ 25 mls/hr 01/18/22 22:00 01/19/22 05:23 Sod 3.375 gm/ Sodium Chloride IVPB 25 mls/hr Q8H ZAY Administration Protocol Vancomycin HCl 1,250 mg/ 250 mls @ 125 mls/hr 01/19/22 23:00 Sodium Chloride IVPB Q24H ZAY Sodium Chloride 1,000 mls @ 125 mls/hr 01/18/22 23:45 01/19/22 12:52 Saline 0.9% IV Not Given .Q8H ZAY Acyclovir Sodium 750 mg/ 115 mls @ 100 mls/hr 01/19/22 08:00 01/19/22 08:14 Sodium Chloride IVPB 100 mls/hr Q12HR ZAY Administration Protocol Melatonin 3 mg 01/18/22 16:44 Melatonin 3 Mg Tablet PO HS PRN Insomnia Metoprolol Tartrate 25 mg 01/18/22 21:00 01/19/22 08:18 Metoprolol Tartrate 25 Mg Tab PO 25 mg BID ZAY Administration Naloxone HCl 0.2 mg 01/18/22 14:00 Naloxone 0.4 Mg/Ml 1 Ml Vial IV Q2M PRN Opioid Reversal Ondansetron HCl 4 mg 01/18/22 16:44 Ondansetron 4 Mg/2 Ml Vial IVP Q8HR PRN Nausea And Vomiting Intake and Output 01/18/22 01/19/22 01/19/22 22:59 06:59 14:59 Output Total 800 Balance -800 Output: Urine 800 Other: Weight 74.843 kg 01/19/22 07:33 01/19/22 07:33
--- NOTE | 2022-01-19 13:46 | P.PN ---
Progress Note - Text Progress Note Date: 01/19/22 This is 76 years old. He was admitted to [facility] secondary to seizure and acute encephalitis, and request for lumbar puncture to anesthesia services was placed, patient currently on IV heparin infusion, for this reason lumbar puncture cannot be done until heparin is on hold, and PTT within normal limits.
--- NOTE | 2022-01-19 14:06 | P.PN ---
Subjective Progress Note Date: 01/19/22 Patient is quite agitated today in 4. restraints. He is still not oriented to person time or place. Ongoing workup for altered mental status. Ongoing treatment for UTI. Gen: awake, alert HEENT: normocephalic, atraumatic, good hearing acuity, moist mucous membranes Resp: good air exchange, breathing comfortably with no accessory muscle use CVS: good distal perfusion x 4, GI: soft, NTTP, ND : no SPT, no CVAT, gardner catheter not present MSK: no pitting edema, no clubbing Neuro: non-focal, moving all extremities Psych: uncooperative, agitated mood Assessment/plan: New onset seizure Prolonged post-ictal state with altered mentation - MRI, EEG - D/W neurology: concern for possible status and herpes encephalitis. Will consult anesthesia for LP, Load with Keppra and dilantin - Empiric acyclovir - neuro checks - seizure precautions - ativan/haldol PRN for agitation Elevated troponin - likely reflective of acute stressor - consult cardio - ASA - follow troponin - tele - echo in AM UTI, POA - rocephin, await culture CKD III - IVF - No quite diagnositic of FARA but will need to monitor Ecchymosis, left eye - supportive care HX: Prior TIA Prior transient global amnesia HTN Aortic stenosis, s/p replacement The patient is admitted with an anticipated greater than 2 midnight stay for evaluation of seizure Surrogate decision-maker: son If does not answer then Radha Leiva , then daughter in law June CODE STATUS:full DVT prophylaxis: heparin Discussed with: Patient, nursing , ED provider, Neurology Anticipated discharge date: pending clinical course Anticipated discharge place: pending clinical course A total of 75 minutes was spent on the care of this complex patient more than 50% of the time was spent in counseling and care coordination. Objective - Vital Signs Vital signs: Vital Signs Temp 97.8 F 01/19/22 11:59 Pulse 95 01/19/22 12:00 Resp 18 01/19/22 11:59 BP 137/74 01/19/22 11:59 Pulse Ox 97 01/19/22 11:59 FiO2 Intake & Output 01/18/22 01/19/22 01/19/22 18:59 06:59 18:59 Output Total 800 Balance -800 Weight 74.843 kg 74.843 kg Output: Urine 800 - Labs CBC & Chem 7: 01/19/22 07:33 01/19/22 07:33 Labs: Abnormal Lab Results - Last 24 Hours (Table) 01/18/22 01/18/22 01/18/22 Range/Units 12:20 15:45 18:54 WBC (3.8-10.6) k/uL Neutrophils # (1.3-7.7) k/uL Lymphocytes # (1.0-4.8) k/uL Monocytes # (0-1.0) k/uL APTT (22.0-30.0) sec Chloride (98-107) mmol/L BUN (9-20) mg/dL Creatinine (0.66-1.25) mg/dL Glucose (74-99) mg/dL Plasma Lactic Acid Hang (0.7-2.0) mmol/L Troponin I 0.104 H* 0.162 H* (0.000-0.034) ng/mL Prolactin 20.200 H (2.100-17.700) ng/mL 01/18/22 01/18/22 01/18/22 Range/Units 22:47 22:47 22:47 WBC 17.6 H (3.8-10.6) k/uL Neutrophils # 14.7 H (1.3-7.7) k/uL Lymphocytes # 0.8 L (1.0-4.8) k/uL Monocytes # 1.7 H (0-1.0) k/uL APTT 48.1 H (22.0-30.0) sec Chloride (98-107) mmol/L BUN (9-20) mg/dL Creatinine (0.66-1.25) mg/dL Glucose (74-99) mg/dL Plasma Lactic Acid Hang 3.7 H* (0.7-2.0) mmol/L Troponin I (0.000-0.034) ng/mL Prolactin (2.100-17.700) ng/mL 01/19/22 01/19/22 01/19/22 Range/Units 07:33 07:33 07:33 WBC 14.9 H (3.8-10.6) k/uL Neutrophils # 12.7 H (1.3-7.7) k/uL Lymphocytes # 0.7 L (1.0-4.8) k/uL Monocytes # 1.2 H (0-1.0) k/uL APTT 64.9 H (22.0-30.0) sec Chloride 113 H (98-107) mmol/L BUN 22 H (9-20) mg/dL Creatinine 1.51 H (0.66-1.25) mg/dL Glucose 127 H (74-99) mg/dL Plasma Lactic Acid Hang (0.7-2.0) mmol/L Troponin I (0.000-0.034) ng/mL Prolactin (2.100-17.700) ng/mL Microbiology - Last 24 Hours (Table) 01/18/22 12:53 Urine Culture - Preliminary Urine,Voided
[2022-01-19] MEDS ORDERED: HALOPERIDOL LACTATE 5 MG/ML 1 ML VIAL IVP PRN (14:41)
[2022-01-19] MEDS: LORazepam 2 MG/ML INJ IV PRN (17:33)
[2022-01-19] MEDS: VANCOMYCIN 1,250 MG in SODIUM CHLORIDE 0.9% 250 ML IVPB SCH (23:24)
[2022-01-19] MEDS: HEPARIN SOD,PORK IN 0.45% NACL 25,000 UNIT in 0.45% NACL 1 250ML.BAG IV SCH (23:24)
[2022-01-20] MEDS: SODIUM CHLORIDE 0.9% 1,000 ML IV SCH ×3 (00:37→15:11)
[2022-01-20] MEDS: PIPERACILLIN-TAZOBACTAM 3.375 GM in SODIUM CHLORIDE 0.9% 100 ML IVPB SCH ×2 (06:26→15:13)
[2022-01-20] MEDS: METOPROLOL TARTRATE 25 MG TAB PO SCH ×2 (08:46→21:57)
[2022-01-20] MEDS: ASPIRIN 81 MG PO SCH (08:46)
[2022-01-20] MEDS: LISINOPRIL-HCTZ 20-25 MG 1 EACH TAB PO SCH (08:46)
[2022-01-20] MEDS: ACYCLOVIR SODIUM 750 MG in SODIUM CHLORIDE 0.9% 100 ML IVPB SCH ×3 (08:51→22:53)
[2022-01-20] MEDS: levETIRAcetam IV 1,000 MG in SALINE 1 100ML.BAG IVPB SCH ×2 (08:51→21:52)
--- NOTE | 2022-01-20 12:54 | P.PN ---
Subjective Progress Note Date: 01/19/22 Patient was seen for a follow-up. Patient continues to be severely encephalopathic. Not clinically improving. Lumbar puncture could not be done because patient is on heparin for cardiac reasons. No recurrence of seizures since last 24 hours. Objective - Vital Signs Vital signs: Vital Signs Temp 97.8 F 01/19/22 11:59 Pulse 95 01/19/22 12:00 Resp 18 01/19/22 11:59 BP 137/74 01/19/22 11:59 Pulse Ox 97 01/19/22 11:59 FiO2 Intake & Output 01/18/22 01/19/22 01/19/22 18:59 06:59 18:59 Output Total 1400 Balance -1400 Weight 74.843 kg 74.843 kg Output: Urine 1400 - Exam Patient continues to be very encephalopathic. Examination has not improved. Patient still mumbles. Mouth is dry. Pupils are equal, round and reacting. Tone is equal bilaterally. He does squeeze hands bilaterally, no focal weakness observed. - Labs CBC & Chem 7: 01/19/22 07:33 01/19/22 07:33 Labs: Abnormal Lab Results - Last 24 Hours (Table) 01/18/22 01/18/22 01/18/22 Range/Units 12:20 15:45 18:54 WBC (3.8-10.6) k/uL Neutrophils # (1.3-7.7) k/uL Lymphocytes # (1.0-4.8) k/uL Monocytes # (0-1.0) k/uL APTT (22.0-30.0) sec Chloride (98-107) mmol/L BUN (9-20) mg/dL Creatinine (0.66-1.25) mg/dL Glucose (74-99) mg/dL Plasma Lactic Acid Hang (0.7-2.0) mmol/L Troponin I 0.104 H* 0.162 H* (0.000-0.034) ng/mL Prolactin 20.200 H (2.100-17.700) ng/mL 01/18/22 01/18/22 01/18/22 Range/Units 22:47 22:47 22:47 WBC 17.6 H (3.8-10.6) k/uL Neutrophils # 14.7 H (1.3-7.7) k/uL Lymphocytes # 0.8 L (1.0-4.8) k/uL Monocytes # 1.7 H (0-1.0) k/uL APTT 48.1 H (22.0-30.0) sec Chloride (98-107) mmol/L BUN (9-20) mg/dL Creatinine (0.66-1.25) mg/dL Glucose (74-99) mg/dL Plasma Lactic Acid Hang 3.7 H* (0.7-2.0) mmol/L Troponin I (0.000-0.034) ng/mL Prolactin (2.100-17.700) ng/mL 01/19/22 01/19/22 01/19/22 Range/Units 07:33 07:33 07:33 WBC 14.9 H (3.8-10.6) k/uL Neutrophils # 12.7 H (1.3-7.7) k/uL Lymphocytes # 0.7 L (1.0-4.8) k/uL Monocytes # 1.2 H (0-1.0) k/uL APTT 64.9 H (22.0-30.0) sec Chloride 113 H (98-107) mmol/L BUN 22 H (9-20) mg/dL Creatinine 1.51 H (0.66-1.25) mg/dL Glucose 127 H (74-99) mg/dL Plasma Lactic Acid Hang (0.7-2.0) mmol/L Troponin I (0.000-0.034) ng/mL Prolactin (2.100-17.700) ng/mL Microbiology - Last 24 Hours (Table) 01/18/22 12:53 Urine Culture - Preliminary Urine,Voided Assessment and Plan Assessment: * 76-year-old male who was found on the floor, unresponsive (intact vitals), then had a witnessed seizure by the vice president quality assurance staff in the ambulance. New onset seizure. * Severe encephalopathy, rule out postictal confusion versus partial status epilepticus versus herpes encephalitis * Leukocytosis, patient spiked temperature overnight, rule out encephalitis. Started on acyclovir. * Patient had similar presentation on 07/28/2020 (found down outside in the cold by the mailbox), was felt to be a syncopal spell versus seizure. Workup was negative. * Acute UTI, cultures negative * Elevated cardiac enzymes, on heparin * Moderate renal insufficiency. * Hypertension * Hard of hearing, uses hearing aid * History of aortic stenosis, status post valve replacement in 2018 Plan: * Patient has spiked a temperature overnight. Acyclovir IV (renal dosing) started. Lumbar puncture could not be performed because patient on heparin for cardiac reasons (elevated cardiac enzymes) * ID consultation to evaluate for encephalopathy related to ?UTI, versus encephalitis. * EEG was performed today, which is abnormal due to background slowing of moderate degree. This is suggestive of generalized cerebral dysfunction as can be seen with toxic metabolic encephalopathy or due to diffuse structural brain abnormality. Clinical correlation recommended. No epileptiform activity was seen. * Patient's Dilantin level is 13.9. As EEG did not reveal any epileptiform activity, we will continue on single agent with Keppra 1000 mg IV twice a day. * MRI of the brain rule out CVA. It mentation does not improve by tomorrow, we will repeat CT head if cannot tolerate MRI. * Continue close neuro checks. * DVT prophylaxis: Patient on IV heparin * Cardiology on board for elevated cardiac enzymes.
--- NOTE | 2022-01-20 14:22 | P.PN ---
Subjective Progress Note Date: 01/20/22 Patient is still agitated and encephalopathic, but slightly improved, requesting to have restraints removed. D/w nursing, will remove restraints on feet, and sit him up in bed, but 2pt will remain so he doesn't remove lines and telemetry leads. He can tell me his name, but cannot tell me place, time, or president. Ongoing workup for altered mental status to include either MRI or repeat CTH today. Ongoing treatment for UTI. Rec'd haldol 2mg IV at 0233 overnight. Gen: awake, alert HEENT: normocephalic, atraumatic, good hearing acuity, moist mucous membranes Resp: good air exchange, breathing comfortably with no accessory muscle use CVS: good distal perfusion x 4, GI: soft, NTTP, ND : no SPT, no CVAT, gardner catheter not present MSK: no pitting edema, no clubbing Neuro: non-focal, moving all extremities Psych: uncooperative, agitated mood Assessment/plan: New onset seizure Prolonged post-ictal state with altered mentation - MRI, pending - EEG did not show epileptiform activity, stopping dilantin - D/W neurology: concern for possible status and herpes encephalitis. Will consult anesthesia for LP, Load with Keppra and dilantin -LP not done bc patient is on IV heparin for elevated troponin - Empiric acyclovir - neuro checks - seizure precautions - ativan/haldol PRN for agitation - avoid 4 pt restraints whenever possible Elevated troponin - likely reflective of acute stressor - consult cardio - ASA - follow troponin - tele - echo in AM UTI, POA - rocephin, await culture CKD III - IVF - No quite diagnositic of FARA but will need to monitor Ecchymosis, left eye - supportive care HX: Prior TIA Prior transient global amnesia HTN Aortic stenosis, s/p replacement The patient is admitted with an anticipated greater than 2 midnight stay for evaluation of seizure Surrogate decision-maker: son If does not answer then Radha Leiva , then daughter in law June CODE STATUS:full DVT prophylaxis: heparin Discussed with: Patient, nursing , ED provider, Neurology Anticipated discharge date: pending clinical course Anticipated discharge place: pending clinical course A total of 75 minutes was spent on the care of this complex patient more than 50% of the time was spent in counseling and care coordination. Objective - Vital Signs Vital signs: Vital Signs Temp 98.2 F 01/20/22 11:56 Pulse 91 01/20/22 11:56 Resp 16 01/20/22 11:56 BP 125/68 01/20/22 11:56 Pulse Ox 100 01/20/22 11:56 FiO2 Intake & Output 01/19/22 01/20/22 01/20/22 18:59 06:59 18:59 Intake Total 227.668 796.52 Output Total 1493 117 1124 Balance -1400 -422.332 -653.48 Intake: Intake, IV Titration 227.668 796.52 Amount Heparin Sod,Pork in 0.45% 227.668 108.52 NaCl 25,000 unit In 0.45 % NaCl 1 250ml.bag @ 12 UNITS/KG/HR 8.981 mls/hr IV .Q24H [facility] Rx#: [id number] Sodium Chloride 0.9% 1, 688 000 ml @ 125 mls/hr IV . Q8H [facility] Rx#:[id number] Output: Urine 0188 [id number] Other: Voiding Method External Catheter External Catheter # Bowel Movements 1 1 - Labs CBC & Chem 7: 01/19/22 07:33 01/19/22 07:33 Labs: Abnormal Lab Results - Last 24 Hours (Table) 01/20/22 Range/Units 07:14 APTT 41.3 H (22.0-30.0) sec Microbiology - Last 24 Hours (Table) 01/18/22 15:45 Blood Culture - Preliminary Blood No Growth after 24 hours
[2022-01-20] MEDS: HEPARIN SODIUM 1,000 UN/ML (10ML VL) IV PRN (18:35)
[2022-01-20] MEDS: LORazepam 2 MG/ML INJ IV PRN (21:13)
--- NOTE | 2022-01-20 22:32 | P.CONS ---
History of Present Illness - Reason for Consult Consult date: 01/20/22 - History of Present Illness Patient is a 76-year-old male with a past medical history sniffing for hypertension aortic stenosis presenting to the hospital 2 days ago on 01/18/2022 for evaluation of unresponsiveness patient family had not heard from the patient around 3 PM yesterday and he did not answer and himself on the phone when the daughter went to check on him the patient was unresponsive on the ground EMS was calling and on the way to the hospital the patient did have tonic-clonic seizure in this patient with no history of any seizure activity, patient on presentation to the hospital did have a low-grade fever 100.5 F patient did have mild tachycardia did have white count of 17.9 with a left shift which is down to 14.9 did have elevated lactic acid as well as elevated troponin creatinine is mildly elevated liver enzymes are normal did have a positive UA urine drug screen was negative blood and urine cultures are currently pending patient did have a head and cervical spine CT negative for any bleed chest x-ray was negative, anesthesia was consulted however the patient was on IV heparin and did not do LP patient is currently on empiric acyclovir and Zosyn along with vancomycin infectious disease was consulted for further management of antibiotic therapy most information has been obtained from review the chart talking to nursing staff as the patient not a very good historian patient was insisting on getting up and wants to get out of here but not specifically for any headache patient also no when asked specifically where he is he was not able to answer that question no vomiting or diarrhea has been reported by the nursing staff Past Medical History Past Medical History: Hypertension, Syncope Additional Past Medical History / Comment(s): aortic stenosis, murmur, [place] wears hearing aids oneal. History of Any Multi-Drug Resistant Organisms: None Reported Past Surgical History: Cardiac Valve Replacement, Heart Catheterization Additional Past Surgical History / Comment(s): LUIS Past Anesthesia/Blood Transfusion Reactions: No Reported Reaction Additional Past Anesthesia/Blood Transfusion Reaction / Comm: has never had anesthesia Past Psychological History: Depression Smoking Status: Never smoker Past Alcohol Use History: None Reported Past Drug Use History: None Reported - Past Family History Father Family Medical History: Cancer Mother Family Medical History: Myocardial Infarction ([place]) Additional Family Medical History / Comment(s): pt stated his mom, grandmother and great grandmother had heart problems Medications and Allergies Home Medications Medication Instructions Recorded Confirmed Type buPROPion HCL [Wellbutrin XL] 300 mg PO DAILY 02/20/17 01/18/22 History Lisinopril-Hctz 20-25 mg 1 tab PO DAILY 06/08/20 01/18/22 History [Zestoretic 20-25] Metoprolol Tartrate [Lopressor] 25 mg PO BID 06/08/20 01/18/22 History Allergies Allergy/AdvReac Type Severity Reaction Status Date / Time No Known Allergies Allergy Verified 01/18/22 12:56 Physical Exam Vitals: Vital Signs Temp Pulse Resp BP Pulse Ox 01/20/22 11:56 98.2 F 91 16 125/68 100 01/20/22 08:00 98.9 F 91 16 122/63 97 01/20/22 03:48 98.8 F 91 19 107/48 94 L 01/20/22 00:00 98.2 F 91 18 112/64 95 01/19/22 20:00 98.1 F 93 20 124/69 92 L 01/19/22 16:00 97.9 F 97 18 134/68 98 Intake and Output 01/19/22 01/20/22 01/20/22 22:59 06:59 14:59 Intake Total 227.668 796.52 Output Total 650 1450 Balance -422.332 -653.48 Intake: Intake, IV Titration 227.668 796.52 Amount Heparin Sod,Pork in 0.45% 227.668 108.52 NaCl 25,000 unit In 0.45 % NaCl 1 250ml.bag @ 12 UNITS/KG/HR 8.981 mls/hr IV .Q24H [facility] Rx#: [id number] Sodium Chloride 0.9% 1, 688 000 ml @ 125 mls/hr IV . Q8H [facility] Rx#:[id number] Output: Urine 650 1450 Other: Voiding Method External Catheter External Catheter # Bowel Movements 1 1 Results CBC & Chem 7: 01/19/22 07:33 01/19/22 07:33 Labs: Abnormal Lab Results - Last 24 Hours (Table) 01/20/22 Range/Units 07:14 APTT 41.3 H (22.0-30.0) sec Microbiology - Last 24 Hours (Table) 01/18/22 15:45 Blood Culture - Preliminary Blood No Growth after 24 hours Assessment and Plan Plan: 1patient presented to hospital with episode of unresponsiveness seizure activity did have a fever with mental status changes underlying encephalitis need to be ruled out and more likely viral etiology clinically not behaving as a bacterial meningitis brought on antibiotics loaded unfortunately LP was not completed which could have been a priority , Patient did have a positive UA and some of his symptomatology could be related to symptomatic UTI with urine cultures currently pending and will need to cover mostly for enteric gram- negative pathogen and Rocephin should be enough for it 2patient to continue antibiotic acyclovir vancomycin switch Zosyn to Rocephin 3-we will check his herpes serology 4-check inflammatory markers We will follow on clinical condition and cultures to further adjust medication if needed Thank you for this consultation will follow this patient along with you Time with Patient: Greater than 30
[2022-01-21] MEDS: HEPARIN SODIUM 1,000 UN/ML (10ML VL) IV PRN (00:40)
[2022-01-21] MEDS: VANCOMYCIN 1,250 MG in SODIUM CHLORIDE 0.9% 250 ML IVPB SCH (00:42)
[2022-01-21] MEDS: HEPARIN SOD,PORK IN 0.45% NACL 25,000 UNIT in 0.45% NACL 1 250ML.BAG IV SCH (00:46)
[2022-01-21] MEDS: PIPERACILLIN-TAZOBACTAM 3.375 GM in SODIUM CHLORIDE 0.9% 100 ML IVPB SCH (00:52)
--- NOTE | 2022-01-21 02:56 | P.PN ---
Subjective Progress Note Date: 01/20/22 Patient was seen for a follow-up. Patient's encephalopathy has improved. Patient speaking much more sentences. Still very encephalopathic, confused. Patient continues to repeat "let being get up". He states "I'm tired of laying down". He is on 2 points restraints. Lumbar puncture could not be done because patient is on heparin for cardiac reasons. No recurrence of seizures since last 48 hours. Objective - Vital Signs Vital signs: Vital Signs Temp 98.1 F 01/20/22 16:00 Pulse 90 01/20/22 16:00 Resp 16 01/20/22 16:00 BP 126/64 01/20/22 16:00 Pulse Ox 98 01/20/22 16:00 FiO2 Intake & Output 01/19/22 01/20/22 01/20/22 18:59 06:59 18:59 Intake Total 227.668 796.52 Output Total 3196 447 1513 Balance -1400 -422.332 -653.48 Intake: Intake, IV Titration 227.668 796.52 Amount Heparin Sod,Pork in 0.45% 227.668 108.52 NaCl 25,000 unit In 0.45 % NaCl 1 250ml.bag @ 12 UNITS/KG/HR 8.981 mls/hr IV .Q24H [facility] Rx#: [id number] Sodium Chloride 0.9% 1, 688 000 ml @ 125 mls/hr IV . Q8H [facility] Rx#:[id number] Oral 0 Output: Urine 1406 522 [id number] Other: Voiding Method External Catheter External Catheter # Bowel Movements 1 1 - Exam Patient continues to be very restless, encephalopathic, but quite better than yesterday. He is more alert, awake, speaking slightly more clearly, although repeating sentences like "let me get up, I am tired of laying down". He denies headache. He is very hard of hearing. Pupils are equal, round and reacting. Tone is equal bilaterally. He does squeeze hands bilaterally, no focal weakness observed. Reflexes are 1+ in the upper limbs, 1+ to 2 at the knees, and plantars are withdrawal bilaterally. - Labs CBC & Chem 7: 01/19/22 07:33 01/19/22 07:33 Labs: Abnormal Lab Results - Last 24 Hours (Table) 01/20/22 Range/Units 07:14 APTT 41.3 H (22.0-30.0) sec Microbiology - Last 24 Hours (Table) 01/18/22 15:45 Blood Culture - Preliminary Blood No Growth after 24 hours Assessment and Plan Assessment: * 76-year-old male who was found on the floor, unresponsive (intact vitals), then had a witnessed seizure by the supervisor yard staff in the ambulance. New onset seizure. * Severe encephalopathy. Partial status epilepticus ruled out. Rule out herpes encephalitis * Leukocytosis, patient spiked temperature overnight (01/19/2022), rule out encephalitis. Started on acyclovir. * Patient had similar presentation on 07/28/2020 (found down outside in the cold by the mailbox), was felt to be a syncopal spell versus seizure. Workup was negative. * Acute UTI, cultures negative * Elevated cardiac enzymes, on heparin * Moderate renal insufficiency. * Hypertension * Hard of hearing, uses hearing aid * History of aortic stenosis, status post valve replacement in 2018 Plan: * Patient on Acyclovir IV (renal dosing) being empirically treated for herpes encephalitis. Lumbar puncture could not be performed because patient on heparin for cardiac reasons (elevated cardiac enzymes) * Appreciate ID consultation. Antibiotics ingested. Patient does have acute ?UTI, versus encephalitis. Urine cultures however negative. * EEG 01/19/2022 was abnormal due to background slowing of moderate degree. This is suggestive of generalized cerebral dysfunction as can be seen with toxic metabolic encephalopathy or due to diffuse structural brain abnormality. Clinical correlation recommended. No epileptiform activity was seen. * Patient's Dilantin level is 13.9. As EEG did not reveal any epileptiform activity, we will continue on single agent with Keppra 1000 mg IV twice a day. Stop Dilantin. * Await MRI of the brain rule out CVA. Patient's mental status has improved slightly. * Continue close neuro checks. * DVT prophylaxis: Patient on IV heparin * Cardiology on board for elevated cardiac enzymes. * Dr. Garry Schuler Will resume neurology service in the morning.
[2022-01-21] MEDS: SODIUM CHLORIDE 0.9% 1,000 ML IV SCH ×3 (03:27→18:14)
[2022-01-21] MEDS: LORazepam 2 MG/ML INJ IV PRN (04:19)
[2022-01-21 06:13] LABS: Glucose,Whole Blood 79 mg/dL (70-110)
[2022-01-21 07:00] LABS: Glucose,Whole Blood 91 mg/dL (70-110)
[2022-01-21 07:33] LABS: Basophils # (A) 0.1 k/uL (0-0.2); Basophils % (A) 1 %; Eosinophils # (A) 0.2 k/uL (0-0.7); Eosinophils % (A) 2 %; HCT 45.4 % (39.0-53.0); HGB 14.2 gm/dL (13.0-17.5); Hypochromasia Moderate; Lymphocytes # (A) 0.9 k/uL (1.0-4.8); Lymphocytes % (A) 9 %; MCH 30.5 pg (25.0-35.0); MCHC 31.4 g/dL (31.0-37.0); MCV 97.3 fL (80.0-100.0); Mean Platelet Volume 6.7; Monocytes # (A) 0.7 k/uL (0-1.0); Monocytes % (A) 7 %; Neutrophils # (A) 8.3 k/uL (1.3-7.7); Neutrophils % (A) 80 %; Platelet Count 249 k/uL (150-450); RBC 4.66 m/uL (4.30-5.90); RDW 12.9 % (11.5-15.5); WBC 10.3 k/uL (3.8-10.6)
[2022-01-21 07:50] LABS: African American GFR (CKD) >90 (>60 ml/min/1.73 sqM); Anion Gap 10 mmol/L; Blood Urea Nitrogen 14 mg/dL (9-20); Calcium 8.9 mg/dL (8.4-10.2); Carbon Dioxide 20 mmol/L (22-30); Chloride 113 mmol/L (98-107); Glucose 76 mg/dL (74-99); Magnesium 1.6 mg/dL (1.6-2.3); Non-African American GFR(CKD) 86 (>60 ml/min/1.73 sqM); Potassium 3.8 mmol/L (3.5-5.1); Sodium 143 mmol/L (137-145)
[2022-01-21 08:25] LABS: C Reactive Protein 19.3 mg/dL (<1.0)
[2022-01-21] MEDS: levETIRAcetam IV 1,000 MG in SALINE 1 100ML.BAG IVPB SCH ×2 (09:06→21:10)
[2022-01-21] MEDS: ACYCLOVIR SODIUM 750 MG in SODIUM CHLORIDE 0.9% 100 ML IVPB SCH ×2 (09:29→17:13)
--- NOTE | 2022-01-21 14:27 | MR ---
EXAMINATION TYPE: MR brain wo con DATE OF EXAM: 01/21/2022 COMPARISON: MRI brain July 28, 2020 HISTORY: Seizure, confusion TECHNIQUE: Multiplanar, multisequence imaging of the brain and brainstem is performed without IV cont rast. FINDINGS: Diffusion weighted images demonstrate new area of linear increased signal on diffusion-weighted image s with diminished signal on ADC mapping showing T2 hyperintensity involving the central right cerebel lum image 72 and 80 series 203 for reference. There is moderate ventricular and sulcal prominence. Mild T2 hyperintensity in the periventricular wh ite matter is redemonstrated. T2 coronal weighted images show hippocampal gyri to appear symmetric an d within normal limits. Midline structures redemonstrate normal morphology. The craniocervical junction appears within lucas l limits. Normal vascular flow voids are present. The visualized sinuses are clear and the globes are intact bilaterally. IMPRESSION: 1. Suspect evolving acute lacunar infarct right cerebellar hemisphere as detailed above, correlate cl inically. 2. Moderate diffuse cerebral atrophy and mild chronic small vessel ischemic change redemonstrated wit hout significant interval change.
--- NOTE | 2022-01-21 17:03 | P.PN ---
Subjective Progress Note Date: 01/21/22 I am seeing the patient for the first time during this admission. Please refer to Dr. Bradshaw's notes for further details. It seems the patient has severe encephalopathy and uknown cause. I spoke with the son and he felt he was last seen normal by him a week ago and he is independent and walks on his own without difficulty. Lumbar puncture could not be done since on heparin drip and had elevated cardiac enzyme. I.D. is on board. Per the nurse he was agitated overnight and received Ativan 1mg once. He is somnolent today throughout. Objective - Vital Signs Vital signs: Vital Signs Temp 97.7 F 01/21/22 11:36 Pulse 95 01/21/22 11:36 Resp 18 01/21/22 11:36 BP 162/82 01/21/22 11:36 Pulse Ox 97 01/21/22 11:36 FiO2 Intake & Output 01/20/22 01/21/22 01/21/22 18:59 06:59 18:59 Intake Total 870.565 67.435 200 Output Total 0742 031 7318 Balance -579.435 -332.565 -900 Weight 78.5 kg Intake: IV 100 levETIRAcetam IV 1,000 mg 100 In Saline 1 100ml.bag @ 400 mls/hr IVPB Q12HR [facility] Rx#:[id number] Intake, IV Titration 870.565 67.435 100 Amount Acyclovir Sodium 750 mg 100 In Sodium Chloride 0.9% 100 ml @ 100 mls/hr IVPB Q8HR [facility] Rx#:[id number] Heparin Sod,Pork in 0.45% 182.565 67.435 NaCl 25,000 unit In 0.45 % NaCl 1 250ml.bag @ 12 UNITS/KG/HR 8.981 mls/hr IV .Q24H [facility] Rx#: [id number] Sodium Chloride 0.9% 1, 688 000 ml @ 125 mls/hr IV . Q8H [facility] Rx#:[id number] Oral 0 Output: Urine 4205 177 6948 Other: Voiding Method External Catheter Diaper Diaper Incontinent External Catheter # Voids 4 # Bowel Movements 1 1 - Exam Physical exam: Patient is somnolent the entire time during the examination. He briefly opened eyes. Cranial nerves: Primary gaze is midline and pupils are round and equal and reactive to light. No facial weakness. Could not assess motor strength or sensation SOME OF THE WORK-UP DURING THIS HOSPITAL VISIT: * u/a: Positive for acut UTI * 2-D echo was reported as normal left ventricular ejection fraction of 55-60%. Trace mitral regurgitation. Normal left atrial size. No evidence of atrial septal defect. * Continue close neuro checks. * TSH is 1.590. * EEG reported as abnormal due to background slowing of moderate degree. This is suggestive of generalized cerebral dysfunction as can be seen with toxic metabolic encephalopathy or due to diffuse structural brain abnormality. Clinical correlation recommended. No epileptiform activity was seen. - Labs CBC & Chem 7: 01/21/22 07:14 01/21/22 07:14 Labs: Abnormal Lab Results - Last 24 Hours (Table) 01/20/22 01/20/22 01/21/22 Range/Units 17:24 23:58 07:14 Neutrophils # (1.3-7.7) k/uL Lymphocytes # (1.0-4.8) k/uL APTT 36.2 H 35.6 H (22.0-30.0) sec Chloride (98-107) mmol/L Carbon Dioxide (22-30) mmol/L C-Reactive Protein (<1.0) mg/dL Procalcitonin 0.18 H (0.02-0.09) ng/mL 01/21/22 01/21/22 01/21/22 Range/Units 07:14 07:14 07:14 Neutrophils # 8.3 H (1.3-7.7) k/uL Lymphocytes # 0.9 L (1.0-4.8) k/uL APTT 64.0 H (22.0-30.0) sec Chloride 113 H (98-107) mmol/L Carbon Dioxide 20 L (22-30) mmol/L C-Reactive Protein 19.3 H (<1.0) mg/dL Procalcitonin (0.02-0.09) ng/mL Microbiology - Last 24 Hours (Table) 01/18/22 15:45 Blood Culture - Preliminary Blood No Growth after 48 hours Assessment and Plan Assessment: * 76-year-old male who was found on the floor, unresponsive (intact vitals), then had a witnessed seizure by the lead embedded software engineer staff in the ambulance. New onset seizure. * Acute right cerebellar stroke (small) but that would not explain his seizures nor his mentations. * Severe encephalopathy, rule out postictal confusion versus partial status epilepticus versus herpes encephalitis * Leukocytosis, patient spiked temperature overnight, rule out encephalitis. On acyclovir. * Patient had similar presentation on 07/28/2020 (found down outside in the cold by the mailbox), was felt to be a syncopal spell versus seizure. Workup was negative. * Possible Acute UTI, cultures negative * Elevated cardiac enzymes, on heparin * Moderate renal insufficiency. * Hypertension * Hard of hearing, uses hearing aid * History of aortic stenosis, status post valve replacement in 2018 Plan: * Patient has spiked a temperature with leukocytosis---resolved. Acyclovir IV (renal dosing) and Ceftriaxone 2gm every 12 hours and is on Vancomycine. Lumbar puncture could not be performed because patient on heparin for cardiac reasons (elevated cardiac enzymes). Will defer modification of medication to I.D. team. * MRI of the brain rule out CVA: It is reported as suspected evolving acute lacunar infarct in the right cerebellar hemispheric. Moderate diffuse cerebral atrophy and mild chronic small vessel ischemic change redemonstrated without significant interval change. I personally reviewed the MRI and agree with the report. I feel the patient has small focal stroke over the right cerebellar region. * I ordered carotid duplex, lipid panel * patient is on ASA 81mg daily, IV heparin. I started him on Lipitor 40mg qhs for secondary stroke prophylaxis. * ID consultation to evaluate for encephalopathy related to ?UTI, versus encephalitis. * Patient's Dilantin level is 13.9. As EEG did not reveal any epileptiform activity, and per Dr. Bradshaw to continue on single agent with Keppra 1000 mg IV twice a day. * Consulted PT and OT * Cardiology on board for elevated cardiac enzymes. Recommend consideration of LUIS for acute stroke. Rule out any cardiac thrombus/vegetation (had fever). I spoke with the son and wants to hold off for now and wants to speak with his sister prior to pursuing it. * Will defer the rest of medical management to the primary team. * DVT prophylaxis: Patient on IV heparin CONDITION: Very guarded. The plan is discussed with the son (who is at bedside). He will speak with his sister regarding addressing code status. Garry Schuler M.D. Neuro-Hospitalist Time with Patient: Less than 30
[2022-01-21] MEDS: METOPROLOL TARTRATE 25 MG TAB PO SCH ×2 (17:12→21:03)
--- NOTE | 2022-01-21 18:32 | P.PN ---
Subjective Progress Note Date: 01/21/22 (farooq charting seen at 10am) Principal diagnosis: unresponsive Patient is a 76-year-old male with a history of hypertension, prior TIAs, prior episode of transient global amnesia in 2020, and difficulty hearing who presented to the ER after being found unresponsive by his daughter. He was sent in via EMS and had a reported seizure in route. Patient was given Versed. In the ER he underwent an extensive evaluation. Initial laboratory analysis showed white blood cell count of 17, carbon dioxide of 13 with an anion gap of 19, creatinine 1.63 (up from his baseline of 1.4), and mildly elevated troponin of 0.049. Urine drug screen was negative, salicylates negative, alcohol negative. Urinalysis was consistent with urinary tract infection. 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 In the ER he was loaded with Keppra and given a dose of Rocephin. Arrangements were made for admission. Per ER physician had been becoming more arousable was extremely agitated and did require an additional dose of Ativan. Patient seen and examined at bedside. He continued to be altered and is not responsive to commands. He does look at me when I speak. General: nontoxic, no distress, appears at stated age Derm: warm, dry Head: atraumatic, normocephalic, symmetric Eyes: EOMI, no lid lag, anicteric sclera Mouth: no lip lesion, mucus membranes moist Cardiovascular: S1S2 reg, no murmur, positive posterior tibial pulse bilateral, Lungs: CTA bilateral, no rhonchi, no rales , no accessory muscle use Abdominal: soft, nontender to palpation, no guarding, no appreciable organomegaly Ext: no gross muscle atrophy, no edema, no contractures Neuro: CN II-XI grossly intact, Moing all 4 extremities independently Psych: Awake, appears calm and cooperative at this time Assessment/Plan: Acute right cerebellar CVA Acute Metabolic Encephalopathy New onset seizure Possible encehphalitis with fevers and leukocytosis -LP not done bc patient is on IV heparin for elevated troponin - Neuro recs: Carotid dopplers, Recommends LUIS - ID recs - ASA - Acyclovir, Rocephin, - on keppra - EEG did not show epileptiform activity, stopping dilantin - neuro checks - seizure precautions - ativan/haldol PRN for agitation - avoid 4 pt restraints whenever possible Elevated troponin - likely reflective of acute stressor - echo normal - cardio signed off Staph UTI, POA - rocephin CKD III - IVF - No quite diagnositic of FARA but will need to monitor Ecchymosis, left eye - supportive care HX: Prior TIA Prior transient global amnesia HTN Aortic stenosis, s/p replacement Objective - Vital Signs Vital signs: Vital Signs Temp 97.7 F 01/21/22 16:26 Pulse 85 01/21/22 16:26 Resp 20 01/21/22 16:26 BP 151/84 01/21/22 16:26 Pulse Ox 98 01/21/22 16:26 FiO2 Intake & Output 01/20/22 01/21/22 01/21/22 18:59 06:59 18:59 Intake Total 870.565 67.435 1334 Output Total 1669 101 0502 Balance -579.435 -332.565 234 Weight 78.5 kg Intake: IV 234 Heparin Sod,Pork in 0.45% 134 NaCl 25,000 unit In 0.45 % NaCl 1 250ml.bag @ 12 UNITS/KG/HR 8.981 mls/hr IV .Q24H [facility] Rx#: [id number] levETIRAcetam IV 1,000 mg 100 In Saline 1 100ml.bag @ 400 mls/hr IVPB Q12HR [facility] Rx#:[id number] Intake, IV Titration 870.565 67.435 1100 Amount Acyclovir Sodium 750 mg 100 In Sodium Chloride 0.9% 100 ml @ 100 mls/hr IVPB Q8HR [facility] Rx#:[id number] Heparin Sod,Pork in 0.45% 182.565 67.435 NaCl 25,000 unit In 0.45 % NaCl 1 250ml.bag @ 12 UNITS/KG/HR 8.981 mls/hr IV .Q24H [facility] Rx#: [id number] Sodium Chloride 0.9% 1, 688 950 000 ml @ 125 mls/hr IV . Q8H [facility] Rx#:[id number] cefTRIAXone 2 gm In 50 Sodium Chloride 0.9% 50 ml @ 100 mls/hr IVPB Q12H [facility] Rx#:[id number] Oral 0 Output: Urine 3415 [id number] Other: Voiding Method External Catheter Diaper Diaper Incontinent External Catheter # Voids 4 # Bowel Movements 1 1 - Labs CBC & Chem 7: 01/21/22 07:14 01/21/22 07:14 Labs: Abnormal Lab Results - Last 24 Hours (Table) 01/20/22 01/21/22 01/21/22 Range/Units 23:58 07:14 07:14 Neutrophils # (1.3-7.7) k/uL Lymphocytes # (1.0-4.8) k/uL APTT 35.6 H (22.0-30.0) sec Chloride 113 H (98-107) mmol/L Carbon Dioxide 20 L (22-30) mmol/L C-Reactive Protein 19.3 H (<1.0) mg/dL Procalcitonin 0.18 H (0.02-0.09) ng/mL 01/21/22 01/21/22 Range/Units 07:14 07:14 Neutrophils # 8.3 H (1.3-7.7) k/uL Lymphocytes # 0.9 L (1.0-4.8) k/uL APTT 64.0 H (22.0-30.0) sec Chloride (98-107) mmol/L Carbon Dioxide (22-30) mmol/L C-Reactive Protein (<1.0) mg/dL Procalcitonin (0.02-0.09) ng/mL Microbiology - Last 24 Hours (Table) 01/18/22 15:45 Blood Culture - Preliminary Blood No Growth after 72 hours 01/18/22 12:53 Urine Culture - Final Urine,Voided Staphylococcus warneri
--- NOTE | 2022-01-21 19:00 | US ---
EXAMINATION TYPE: US carotid duplex BILAT DATE OF EXAM: 01/21/2022 COMPARISON: MRI 01/21/22 CLINICAL HISTORY: stroke. stroke TECHNIQUE: Carotid duplex ultrasound examination. Indirect Doppler criteria was utilized. FINDINGS: EXAM MEASUREMENTS: RIGHT: Peak Systolic Velocity (PSV) cm/sec ----- Right CCA: 66.7 ----- Right ICA: 63.7 ----- Right ECA: 97.8 ICA/CCA ratio: 1.0 RIGHT: End Diastole cm/sec ----- Right CCA: 15.9 ----- Right ICA: 25.2 ----- Right ECA: 25.2 LEFT: Peak Systolic Velocity (PSV) cm/sec ----- Left CCA: 68.6 ----- Left ICA: 79.2 ----- Left ECA: 65.8 ICA/CCA ratio: 1.2 LEFT: End Diastole cm/sec ----- Left CCA: 11.8 ----- Left ICA: 23.7 ----- Left ECA: 4.3 VERTEBRALS (direction of flow): Right Vertebral: Antegrade Left Vertebral: Antegrade Rhythm: Normal [employer] NET OR TRAP NOTES: Right side was limited due to patient being unconscious and unable to turn head. M oderate amount of plaque seen in left bulb and ICA. IMPRESSION: There is antegrade flow in the vertebral arteries. The images and measurements suggest close to 50% stenosis in the right internal carotid artery. There is approximate 30% stenosis left internal carotid artery. Criteria for Assigning % of Stenosis / Diameter reduction (Estimation based on the indirect measurements of the internal carotid artery velocities (ICA PSV). 1. Normal (no stenosis)=ICA PSV < 125 cm/s: ratio < 2.0: ICA EDV<40 cm/s. 2. Less than 50% stenosis=ICA PSV < 125 cm/s: ratio < 2.0: ICA EDV<40 cm/s. 3. 50 to 69% stenosis=ICA PSV of 125 to 230 cm/s: ration 2.0 ? 4.0: ICA EDV 40-100 cm/s. 4. Greater than 70% stenosis to near occlusion= ICA PSV > 230 cm/s: ratio > 4.0: ICA EDV > 100 cm/s. 5. Near occlusion= ICA PSV velocities may be low or undetectable: variable ratio and ICA EDV. 6. Total occlusion=unable to detect flow.
[2022-01-21] MEDS: ASPIRIN 81 MG PO SCH (21:16)
[2022-01-21] MEDS: LISINOPRIL-HCTZ 20-25 MG 1 EACH TAB PO SCH (21:16)
[2022-01-21] MEDS ORDERED: VANCOMYCIN TROUGH DUE 1 EACH MISC MISCELLANE ONE (22:00)
--- NOTE | 2022-01-21 23:20 | P.PN ---
Subjective Progress Note Date: 01/21/22 Principal diagnosis: Fever with encephalopathy Patient is a 76-year-old male with multiple comorbidities presented to hospital with mental status changes episode of unresponsiveness patient has been running a fever and remains to be encephalopathic. On today's evaluation that is at 01/21/2022 the patient is afebrile, the patient is breathing comfortably on room air patient remains to be pleasantly confused and did not answer any question no vomiting or diarrhea has been reported by the nursing staff Objective - Vital Signs Vital signs: Vital Signs Temp 97.7 F 01/21/22 11:36 Pulse 95 01/21/22 11:36 Resp 18 01/21/22 11:36 BP 162/82 01/21/22 11:36 Pulse Ox 97 01/21/22 11:36 FiO2 Intake & Output 01/20/22 01/21/22 01/21/22 18:59 06:59 18:59 Intake Total 870.565 67.435 200 Output Total 9236 685 8985 Balance -579.435 -332.565 -900 Weight 78.5 kg Intake: IV 100 levETIRAcetam IV 1,000 mg 100 In Saline 1 100ml.bag @ 400 mls/hr IVPB Q12HR [facility] Rx#:[id number] Intake, IV Titration 870.565 67.435 100 Amount Acyclovir Sodium 750 mg 100 In Sodium Chloride 0.9% 100 ml @ 100 mls/hr IVPB Q8HR [facility] Rx#:[id number] Heparin Sod,Pork in 0.45% 182.565 67.435 NaCl 25,000 unit In 0.45 % NaCl 1 250ml.bag @ 12 UNITS/KG/HR 8.981 mls/hr IV .Q24H [facility] Rx#: [id number] Sodium Chloride 0.9% 1, 688 000 ml @ 125 mls/hr IV . Q8H [facility] Rx#:[id number] Oral 0 Output: Urine 2713 238 0276 Other: Voiding Method External Catheter Diaper Diaper Incontinent External Catheter # Voids 4 # Bowel Movements 1 1 - Exam GENERAL DESCRIPTION: An elderly male lying in bed in no distress RESPIRATORY SYSTEM: Unlabored breathing , decreased breath sounds at bases HEART: S1 S2 regular rate and rhythm , ABDOMEN: Soft , no tenderness EXTREMITIES: No edema feet - Labs CBC & Chem 7: 01/21/22 07:14 01/21/22 07:14 Labs: Abnormal Lab Results - Last 24 Hours (Table) 01/20/22 01/20/22 01/21/22 Range/Units 17:24 23:58 07:14 Neutrophils # (1.3-7.7) k/uL Lymphocytes # (1.0-4.8) k/uL APTT 36.2 H 35.6 H (22.0-30.0) sec Chloride (98-107) mmol/L Carbon Dioxide (22-30) mmol/L C-Reactive Protein (<1.0) mg/dL Procalcitonin 0.18 H (0.02-0.09) ng/mL 01/21/22 01/21/22 01/21/22 Range/Units 07:14 07:14 07:14 Neutrophils # 8.3 H (1.3-7.7) k/uL Lymphocytes # 0.9 L (1.0-4.8) k/uL APTT 64.0 H (22.0-30.0) sec Chloride 113 H (98-107) mmol/L Carbon Dioxide 20 L (22-30) mmol/L C-Reactive Protein 19.3 H (<1.0) mg/dL Procalcitonin (0.02-0.09) ng/mL Microbiology - Last 24 Hours (Table) 01/18/22 15:45 Blood Culture - Preliminary Blood No Growth after 48 hours Assessment and Plan (1) Fever Current Visit: Yes Status: Acute Code(s): R50.9 - FEVER, UNSPECIFIED SNOMED Code(s): 239515073 (2) UTI (urinary tract infection) Current Visit: Yes Status: Acute Code(s): N39.0 - URINARY TRACT INFECTION, SITE NOT SPECIFIED SNOMED Code(s): 42493583 Plan: 1patient presented to hospital with episode of unresponsiveness seizure activity did have a fever with mental status changes underlying encephalitis need to be ruled out and more likely viral etiology clinically not behaving as a bacterial meningitis brought on antibiotics loaded unfortunately LP was not completed which could have been a priority , Patient did have a positive UA and some of his symptomatology could be related to symptomatic UTI with urine cultures has been finalized and staphylococcus Waneri which is sensitive to Rocephin 2patient to continue with acyclovir vancomycin and Rocephin, will benefit from LP to rule out encephalitis, HSV serologies pending
[2022-01-21 23:55] LABS: Chol/HDL Ratio 3.03 Ratio; LDL Cholesterol,Calculated 79.1 mg/dL (0.0-131.0)
[2022-01-22] MEDS: VANCOMYCIN 1,250 MG in SODIUM CHLORIDE 0.9% 250 ML IVPB SCH (01:57)
[2022-01-22] MEDS: ACYCLOVIR SODIUM 750 MG in SODIUM CHLORIDE 0.9% 100 ML IVPB SCH ×2 (06:08→10:58)
[2022-01-22] MEDS: HEPARIN SOD,PORK IN 0.45% NACL 25,000 UNIT in 0.45% NACL 1 250ML.BAG IV SCH ×2 (07:12→13:02)
[2022-01-22] MEDS: SODIUM CHLORIDE 0.9% 1,000 ML IV SCH ×3 (07:12→23:47)
[2022-01-22] MEDS: levETIRAcetam IV 1,000 MG in SALINE 1 100ML.BAG IVPB SCH ×2 (10:57→20:42)
[2022-01-22] MEDS: LISINOPRIL-HCTZ 20-25 MG 1 EACH TAB PO SCH (10:58)
[2022-01-22] MEDS: METOPROLOL TARTRATE 25 MG TAB PO SCH ×2 (10:58→20:43)
[2022-01-22] MEDS: ASPIRIN 81 MG PO SCH (10:58)
[2022-01-22 12:20] LABS: HCT 42.8 % (39.0-53.0); HGB 14.3 gm/dL (13.0-17.5); Hypochromasia Slight; MCH 32.1 pg (25.0-35.0); MCHC 33.4 g/dL (31.0-37.0); MCV 96.1 fL (80.0-100.0); Mean Platelet Volume 8.3; Platelet Count 200 k/uL (150-450); RBC 4.45 m/uL (4.30-5.90); RDW 13.4 % (11.5-15.5); WBC 8.4 k/uL (3.8-10.6)
[2022-01-22 12:24] LABS: African American GFR (CKD) >90 (>60 ml/min/1.73 sqM); Anion Gap 7 mmol/L; Blood Urea Nitrogen 13 mg/dL (9-20); Calcium 8.4 mg/dL (8.4-10.2); Carbon Dioxide 19 mmol/L (22-30); Chloride 114 mmol/L (98-107); Glucose 67 mg/dL (74-99); Non-African American GFR(CKD) 90 (>60 ml/min/1.73 sqM); Potassium 3.5 mmol/L (3.5-5.1); Sodium 140 mmol/L (137-145)
[2022-01-22] MEDS ORDERED: VANCOMYCIN 1,250 MG in SODIUM CHLORIDE 0.9% 250 ML IVPB SCH (14:00)
--- NOTE | 2022-01-22 16:09 | P.PN ---
Subjective Progress Note Date: 01/22/22 Principal diagnosis: unresponsive Patient is a 76-year-old male with a history of hypertension, prior TIAs, prior episode of transient global amnesia in 2020, and difficulty hearing who presented to the ER after being found unresponsive by his daughter. He was sent in via EMS and had a reported seizure in route. Patient was given Versed. In the ER he underwent an extensive evaluation. Initial laboratory analysis showed white blood cell count of 17, carbon dioxide of 13 with an anion gap of 19, creatinine 1.63 (up from his baseline of 1.4), and mildly elevated troponin of 0.049. Urine drug screen was negative, salicylates negative, alcohol negative. Urinalysis was consistent with urinary tract infection. 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 In the ER he was loaded with Keppra and given a dose of Rocephin. Arrangements were made for admission. Per ER physician had been becoming more arousable was extremely agitated and did require an additional dose of Ativan. MRI with acute [facility] Patient seen and examined at bedside. He is awake and alert today. He is oriented to self and able to tell me that he is hospital. He also told that his glasses and hearing aids are missing and he is having some difficulty. He denies any chest pain, shortness of breath, nausea, vomiting. We discussed that he is in the hospital nothing we were concerned he had a seizure at home and a stroke. He has who found him at home in excellent his daughter found him. General: nontoxic, no distress, appears at stated age Derm: warm, dry Head: atraumatic, normocephalic, symmetric Eyes: EOMI, no lid lag, anicteric sclera Mouth: no lip lesion, mucus membranes moist Cardiovascular: S1S2 reg, no murmur, positive posterior tibial pulse bilateral, Lungs: CTA bilateral, no rhonchi, no rales , no accessory muscle use Abdominal: soft, nontender to palpation, no guarding, no appreciable organomegaly Ext: no gross muscle atrophy, no edema, no contractures Neuro: CN II-XI grossly intact, Moing all 4 extremities independently Psych: Awake,oriented X 2 Assessment/Plan: Acute right cerebellar CVA Acute Metabolic Encephalopathy, resolved New onset seizure - encephalitis ruled out with normal temporal lobe on MRI - Neuro recs: Carotid dopplers, Recommends LUIS - ID recs: not likely encephalitis with normal temporal lobe suspect UTI - ASA - on keppra - EEG did not show epileptiform activity, stopping dilantin - neuro checks - seizure precautions - PT/OT/speech recs Staph UTI, POA - rocephin - ID recs Elevated troponin - likely reflective of acute stressor - echo normal - cardio signed off Urinary retention - continue gardner - resume CIC once able CKD III - avoid additional nephrotoxic agent Ecchymosis, left eye - supportive care HX: Prior TIA Prior transient global amnesia HTN Aortic stenosis, s/p replacement Active Medications Generic Name Dose Route Start Last Admin Trade Name Freq PRN Reason Stop Dose Admin Acetaminophen 650 mg 01/18/22 16:44 Acetaminophen Tab 325 Mg Tab PO Q6HR PRN Mild Pain or Fever > 100.5 Aspirin 81 mg 01/18/22 17:30 01/22/22 10:58 Aspirin 81 Mg PO 81 mg DAILY [facility] Administration Lisinopril/HCTZ 1 each 01/19/22 09:00 01/22/22 10:58 Lisinopril-Hctz 20-25 Mg 1 Each Tab PO 1 each DAILY [facility] Administration Haloperidol Lactate 2 mg 01/19/22 14:41 01/20/22 02:23 Haloperidol Lactate 5 Mg/Ml 1 Ml Vial IVP 2 mg Q4HR PRN Administration Agitation or Acute Psychosis Heparin Sodium (Porcine) 0 unit 01/18/22 21:55 01/21/22 00:40 Heparin Sodium 1,000 Un/Ml (10ml Vl) IV 1,850 unit PER PROTOCOL PRN Administration Low PTT Protocol Levetiracetam 1,000 mg/ IV 100 mls @ 400 mls/hr 01/19/22 09:00 01/22/22 10:57 Solution IVPB 400 mls/hr Q12HR [facility] Administration Heparin Sodium/Sodium Chloride 250 mls @ 8.981 mls/hr 01/18/22 22:00 01/22/22 13:02 25,000 unit/ Sodium Chloride IV 16 units/kg/hr .Q24H [facility] 11.975 mls/hr Administration Protocol 12 UNITS/KG/HR Sodium Chloride 1,000 mls @ 125 mls/hr 01/18/22 23:45 01/22/22 07:12 Saline 0.9% IV Not Given .Q8H [facility] Ceftriaxone Sodium 2 gm/ 50 mls @ 100 mls/hr 01/22/22 12:00 01/22/22 13:02 Sodium Chloride IVPB Not Given Q24H [facility] Protocol Lorazepam 1 mg 01/19/22 14:41 01/21/22 04:19 Lorazepam 2 Mg/Ml Inj IV 1 mg Q4HR PRN Administration Anxiety Melatonin 3 mg 01/18/22 16:44 Melatonin 3 Mg Tablet PO HS PRN Insomnia Metoprolol Tartrate 25 mg 01/18/22 21:00 01/22/22 10:58 Metoprolol Tartrate 25 Mg Tab PO 25 mg BID [facility] Administration Naloxone HCl 0.2 mg 01/18/22 14:00 Naloxone 0.4 Mg/Ml 1 Ml Vial IV Q2M PRN Opioid Reversal Ondansetron HCl 4 mg 01/18/22 16:44 Ondansetron 4 Mg/2 Ml Vial IVP Q8HR PRN Nausea And Vomiting Objective - Vital Signs Vital signs: Vital Signs Temp 97.0 F L 01/22/22 08:00 Pulse 101 H 01/22/22 14:00 Resp 18 01/22/22 14:00 BP 125/78 01/22/22 12:00 Pulse Ox 96 01/22/22 12:00 FiO2 Intake & Output 01/21/22 01/22/22 01/22/22 18:59 06:59 18:59 Intake Total 1334 250 Output Total 1100 500 300 Balance 234 -500 -50 Intake: IV 234 Heparin Sod,Pork in 0.45% 134 NaCl 25,000 unit In 0.45 % NaCl 1 250ml.bag @ 12 UNITS/KG/HR 8.981 mls/hr IV .Q24H [facility] Rx#: [id number] levETIRAcetam IV 1,000 mg 100 In Saline 1 100ml.bag @ 400 mls/hr IVPB Q12HR [facility] Rx#:[id number] Intake, IV Titration 1100 250 Amount Acyclovir Sodium 750 mg 100 In Sodium Chloride 0.9% 100 ml @ 100 mls/hr IVPB Q8HR [facility] Rx#:[id number] Heparin Sod,Pork in 0.45% 250 NaCl 25,000 unit In 0.45 % NaCl 1 250ml.bag @ 12 UNITS/KG/HR 8.981 mls/hr IV .Q24H [facility] Rx#: [id number] Sodium Chloride 0.9% 1, 950 000 ml @ 125 mls/hr IV . Q8H [facility] Rx#:[id number] cefTRIAXone 2 gm In 50 Sodium Chloride 0.9% 50 ml @ 100 mls/hr IVPB Q12H [facility] Rx#:[id number] Output: Urine 1100 500 300 Other: Voiding Method Diaper Diaper Diaper External Catheter External Catheter External Catheter # Voids 1 # Bowel Movements 1 - Labs CBC & Chem 7: 01/22/22 07:45 01/22/22 07:45 Labs: Abnormal Lab Results - Last 24 Hours (Table) 01/22/22 01/22/22 Range/Units 07:45 07:45 APTT 77.3 H (22.0-30.0) sec Chloride 114 H (98-107) mmol/L Carbon Dioxide 19 L (22-30) mmol/L Glucose 67 L (74-99) mg/dL Microbiology - Last 24 Hours (Table) 01/18/22 15:45 Blood Culture - Preliminary Blood No Growth after 72 hours 01/18/22 12:53 Urine Culture - Final Urine,Voided Staphylococcus warneri
--- NOTE | 2022-01-22 17:21 | P.PN ---
Subjective Progress Note Date: 01/22/22 The patient is seen and is sitting in a recliner chair and per nurse doing much better. He feels he is doing well. Objective - Vital Signs Vital signs: Vital Signs Temp 97.0 F L 01/22/22 08:00 Pulse 101 H 01/22/22 14:00 Resp 18 01/22/22 14:00 BP 125/78 01/22/22 12:00 Pulse Ox 96 01/22/22 12:00 FiO2 Intake & Output 01/21/22 01/22/22 01/22/22 18:59 06:59 18:59 Intake Total 1334 250 Output Total 1100 500 500 Balance 234 -500 -250 Intake: IV 234 Heparin Sod,Pork in 0.45% 134 NaCl 25,000 unit In 0.45 % NaCl 1 250ml.bag @ 12 UNITS/KG/HR 8.981 mls/hr IV .Q24H [facility] Rx#: [id number] levETIRAcetam IV 1,000 mg 100 In Saline 1 100ml.bag @ 400 mls/hr IVPB Q12HR [facility] Rx#:[id number] Intake, IV Titration 1100 250 Amount Acyclovir Sodium 750 mg 100 In Sodium Chloride 0.9% 100 ml @ 100 mls/hr IVPB Q8HR [facility] Rx#:[id number] Heparin Sod,Pork in 0.45% 250 NaCl 25,000 unit In 0.45 % NaCl 1 250ml.bag @ 12 UNITS/KG/HR 8.981 mls/hr IV .Q24H [facility] Rx#: [id number] Sodium Chloride 0.9% 1, 950 000 ml @ 125 mls/hr IV . Q8H [facility] Rx#:[id number] cefTRIAXone 2 gm In 50 Sodium Chloride 0.9% 50 ml @ 100 mls/hr IVPB Q12H [facility] Rx#:[id number] Output: Urine 1100 500 500 Other: Voiding Method Diaper Diaper Diaper External Catheter External Catheter External Catheter # Voids 1 # Bowel Movements 1 - Exam Physical exam: Patient is awake, alert, oriented to self. Stated he is in the hospital and year is 2021 and it is Election day (referring to Mid-term election). He is following simple commands. Visual field are full to controntation. EOM intact and no nystagmus. No facial weakness. No dysarthria. Strength: Moving all extremities above gravity and no focal deficit noted. Sensation: Normal to touch. Cerebellar: Normal finger to nose bilaterally. SOME OF THE WORK-UP DURING THIS HOSPITAL VISIT: * u/a: Positive for acut UTI * Carotid duplex: It is reported as there is antegrade flow in the vertebral arteries. Images and measurements suggest close to 50% stenosis in the right internal carotid artery. There is approximately 30% stenosis in the left internal carotid artery. * Lipid panel is a triglyceride of 104, cholesterol 149, LDL of 79 and HDL 49 * 2-D echo was reported as normal left ventricular ejection fraction of 55-60%. Trace mitral regurgitation. Normal left atrial size. No evidence of atrial septal defect. * Continue close neuro checks. * TSH is 1.590. * EEG reported as abnormal due to background slowing of moderate degree. This is suggestive of generalized cerebral dysfunction as can be seen with toxic metabolic encephalopathy or due to diffuse structural brain abnormality. Clinical correlation recommended. No epileptiform activity was seen. * MRI of the brain rule out CVA: It is reported as suspected evolving acute lacunar infarct in the right cerebellar hemispheric. Moderate diffuse cerebral atrophy and mild chronic small vessel ischemic change redemonstrated without significant interval change. I personally reviewed the MRI and agree with the report. I feel the patient has small focal stroke over the right cerebellar region. - Labs CBC & Chem 7: 01/22/22 07:45 01/22/22 07:45 Labs: Abnormal Lab Results - Last 24 Hours (Table) 01/22/22 01/22/22 Range/Units 07:45 07:45 APTT 77.3 H (22.0-30.0) sec Chloride 114 H (98-107) mmol/L Carbon Dioxide 19 L (22-30) mmol/L Glucose 67 L (74-99) mg/dL Microbiology - Last 24 Hours (Table) 01/18/22 15:45 Blood Culture - Preliminary Blood No Growth after 72 hours 01/18/22 12:53 Urine Culture - Final Urine,Voided Staphylococcus warneri Assessment and Plan Assessment: * 76-year-old male who was found on the floor, unresponsive (intact vitals), then had a witnessed seizure by the ornamental metalwork designer staff in the ambulance. New onset seizure. * Acute right cerebellar stroke (small) but that would not explain his seizures nor his mentations. * Severe encephalopathy--resolved * Leukocytosis, patient spiked temperature overnight, rule out encephalitis. On acyclovir. * Patient had similar presentation on 07/28/2020 (found down outside in the cold by the mailbox), was felt to be a syncopal spell versus seizure. Workup was negative. * Possible Acute UTI, cultures negative * Elevated cardiac enzymes, on heparin * Moderate renal insufficiency. * Hypertension * Hard of hearing, uses hearing aid * History of aortic stenosis, status post valve replacement in 2018 Plan: * Patient has spiked a temperature with leukocytosis---resolved. Acyclovir IV (renal dosing) and Ceftriaxone 2gm every 12 hours and is on Vancomycine. Lumbar puncture could not be performed because patient on heparin for cardiac reasons (elevated cardiac enzymes). Will defer modification of medication to I.D. team. * MRI of the brain rule out CVA: It is reported as suspected evolving acute lacunar infarct in the right cerebellar hemispheric. Moderate diffuse cerebral atrophy and mild chronic small vessel ischemic change redemonstrated without significant interval change. I personally reviewed the MRI and agree with the report. I feel the patient has small focal stroke over the right cerebellar region. * patient is on ASA 81mg daily, IV heparin. Continue Lipitor 40mg qhs for secondary stroke prophylaxis. * ID is on board. * Patient's Dilantin level is 13.9. As EEG did not reveal any epileptiform activity, and per Dr. Bradshaw to continue on single agent with Keppra 1000 mg IV twice a day. * Consulted PT and OT * Cardiology on board for elevated cardiac enzymes. Recommend consideration of LUIS for acute stroke. Rule out any cardiac thrombus/vegetation (had fever). I spoke with the son and wants to hold off for now and wants to speak with his sister prior to pursuing it. * Will defer the rest of medical management to the primary team. * DVT prophylaxis: Patient on IV heparin CONDITION: Guarded. The plan is discussed with his nurse. Garry Schuler M.D. Neuro-Hospitalist Time with Patient: Less than 30
[2022-01-22] MEDS: HEPARIN SODIUM 1,000 UN/ML (10ML VL) IV PRN (20:41)
[2022-01-22] MEDS: MELATONIN 3 MG TABLET PO PRN (23:41)
[2022-01-23] MEDS: ASPIRIN 81 MG PO SCH (08:00)
[2022-01-23] MEDS: LISINOPRIL-HCTZ 20-25 MG 1 EACH TAB PO SCH (08:00)
[2022-01-23] MEDS: METOPROLOL TARTRATE 25 MG TAB PO SCH ×2 (08:00→21:05)
[2022-01-23] MEDS: levETIRAcetam IV 1,000 MG in SALINE 1 100ML.BAG IVPB SCH ×2 (08:01→21:33)
--- NOTE | 2022-01-23 08:53 | P.PN ---
Subjective Progress Note Date: 01/23/22 Patient's mentation is significantly improved. He is able to maintain a normal conversation. Gen: awake, alert HEENT: normocephalic, atraumatic, good hearing acuity, moist mucous membranes Resp: good air exchange, breathing comfortably with no accessory muscle use CVS: good distal perfusion x 4, GI: soft, NTTP, ND : no SPT, no CVAT, gardner catheter not present MSK: no pitting edema, no clubbing Neuro: non-focal, moving all extremities Psych: cooperative, euthymic mood Assessment/plan: Acute right cerebellar CVA Acute Metabolic Encephalopathy, resolved New onset seizure - encephalitis ruled out with normal temporal lobe on MRI - Neuro recs: Carotid dopplers, Recommends LUIS - ID recs: not likely encephalitis with normal temporal lobe suspect UTI - ASA - on keppra - EEG did not show epileptiform activity, stopping dilantin - neuro checks - seizure precautions - PT/OT/speech recs Staph UTI, POA - rocephin - ID recs Elevated troponin - likely reflective of acute stressor - echo normal - cardio signed off Urinary retention - continue gardner - resume CIC once able CKD III - avoid additional nephrotoxic agent Ecchymosis, left eye - supportive care HX: Prior TIA Prior transient global amnesia HTN Aortic stenosis, s/p replacement Objective - Vital Signs Vital signs: Vital Signs Temp 98.0 F 01/23/22 04:00 Pulse 87 01/23/22 04:00 Resp 18 01/23/22 04:00 BP 128/74 01/23/22 04:00 Pulse Ox 97 01/23/22 04:00 FiO2 Intake & Output 01/22/22 01/23/22 01/23/22 18:59 06:59 18:59 Intake Total 250 396.558 Output Total 500 Balance -250 396.558 Intake: IV 100 levETIRAcetam IV 1,000 mg 100 In Saline 1 100ml.bag @ 400 mls/hr IVPB Q12HR [facility] Rx#:[id number] Intake, IV Titration 250 176.558 Amount Heparin Sod,Pork in 0.45% 250 176.558 NaCl 25,000 unit In 0.45 % NaCl 1 250ml.bag @ 12 UNITS/KG/HR 8.981 mls/hr IV .Q24H [facility] Rx#: [id number] Oral 120 Output: Urine 500 Other: Voiding Method Diaper Diaper External Catheter External Catheter # Bowel Movements 1 - Labs CBC & Chem 7: 01/22/22 07:45 01/23/22 01:58 Labs: Abnormal Lab Results - Last 24 Hours (Table) 01/22/22 01/22/22 01/23/22 Range/Units 07:45 19:31 01:58 APTT 39.7 H 74.9 H (22.0-30.0) sec Chloride 114 H (98-107) mmol/L Carbon Dioxide 19 L (22-30) mmol/L Glucose 67 L (74-99) mg/dL Microbiology - Last 24 Hours (Table) 01/18/22 15:45 Blood Culture - Preliminary Blood No Growth after 96 hours
--- NOTE | 2022-01-23 12:50 | P.PN ---
Subjective Progress Note Date: 01/22/22 Principal diagnosis: Fever with encephalopathy Patient is a 76-year-old male with multiple comorbidities presented to hospital with mental status changes episode of unresponsiveness patient has been running a fever and remains to be encephalopathic. On today's evaluation that is 01/22/2022, the patient is afebrile, is more awake and alert patient is breathing comfortably on room air patient denies having any chest pain or shortness of breath or cough no abdominal pain or diarrhea Objective - Vital Signs Vital signs: Vital Signs Temp 97.0 F L 01/22/22 08:00 Pulse 90 01/22/22 08:00 Resp 16 01/22/22 08:00 BP 150/80 01/22/22 08:00 Pulse Ox 94 L 01/22/22 08:00 FiO2 Intake & Output 01/21/22 01/22/22 01/22/22 18:59 06:59 18:59 Intake Total 1334 Output Total 1100 500 300 Balance 234 -500 -300 Intake: IV 234 Heparin Sod,Pork in 0.45% 134 NaCl 25,000 unit In 0.45 % NaCl 1 250ml.bag @ 12 UNITS/KG/HR 8.981 mls/hr IV .Q24H [facility] Rx#: [id number] levETIRAcetam IV 1,000 mg 100 In Saline 1 100ml.bag @ 400 mls/hr IVPB Q12HR [facility] Rx#:[id number] Intake, IV Titration 1100 Amount Acyclovir Sodium 750 mg 100 In Sodium Chloride 0.9% 100 ml @ 100 mls/hr IVPB Q8HR [facility] Rx#:[id number] Sodium Chloride 0.9% 1, 950 000 ml @ 125 mls/hr IV . Q8H [facility] Rx#:[id number] cefTRIAXone 2 gm In 50 Sodium Chloride 0.9% 50 ml @ 100 mls/hr IVPB Q12H [facility] Rx#:[id number] Output: Urine 1100 500 300 Other: Voiding Method Diaper Diaper External Catheter External Catheter # Voids 1 - Exam GENERAL DESCRIPTION: An elderly male lying in bed in no distress RESPIRATORY SYSTEM: Unlabored breathing , decreased breath sounds at bases HEART: S1 S2 regular rate and rhythm , ABDOMEN: Soft , no tenderness EXTREMITIES: No edema feet - Labs CBC & Chem 7: 01/22/22 07:45 01/23/22 01:58 Labs: Abnormal Lab Results - Last 24 Hours (Table) 01/22/22 Range/Units 07:45 APTT 77.3 H (22.0-30.0) sec Microbiology - Last 24 Hours (Table) 01/18/22 15:45 Blood Culture - Preliminary Blood No Growth after 72 hours 01/18/22 12:53 Urine Culture - Final Urine,Voided Staphylococcus warneri Assessment and Plan (1) Fever Current Visit: Yes Status: Acute Code(s): R50.9 - FEVER, UNSPECIFIED SNOMED Code(s): 737539919 (2) UTI (urinary tract infection) Current Visit: Yes Status: Acute Code(s): N39.0 - URINARY TRACT INFECTION, SITE NOT SPECIFIED SNOMED Code(s): 33563102 Plan: 1patient presented to hospital with episode of unresponsiveness seizure activity did have a fever with mental status changes underlying encephalitis need to be ruled out and more likely viral etiology clinically not behaving as a bacterial meningitis , Patient seem to have shown overall clinical improvement and is more awake alert we will discontinue vancomycin and acyclovir and switch Rocephin to 2 g daily to cover for the UTI and monitor his clinical course clos laurie Time with Patient: Less than 30
--- NOTE | 2022-01-23 12:52 | P.PN ---
Subjective Progress Note Date: 01/23/22 Principal diagnosis: Fever with encephalopathy Patient is a 76-year-old male with multiple comorbidities presented to hospital with mental status changes episode of unresponsiveness patient has been running a fever and remains to be encephalopathic. On today's evaluation that is 01/23/2022, The patient remains to be afebrile, the patient is awake and alert, the patient denies having any headache no chest pain no shortness of breath no cough no nausea vomiting no abdominal pain and no diarrhea Objective - Vital Signs Vital signs: Vital Signs Temp 97.9 F 01/23/22 08:00 Pulse 74 01/23/22 08:00 Resp 18 01/23/22 08:00 BP 98/63 01/23/22 08:00 Pulse Ox 97 01/23/22 08:00 FiO2 Intake & Output 01/22/22 01/23/22 01/23/22 18:59 06:59 18:59 Intake Total 250 396.558 360 Output Total 500 200 Balance -250 396.558 160 Intake: IV 100 levETIRAcetam IV 1,000 mg 100 In Saline 1 100ml.bag @ 400 mls/hr IVPB Q12HR [facility] Rx#:[id number] Intake, IV Titration 250 176.558 Amount Heparin Sod,Pork in 0.45% 250 176.558 NaCl 25,000 unit In 0.45 % NaCl 1 250ml.bag @ 12 UNITS/KG/HR 8.981 mls/hr IV .Q24H [facility] Rx#: [id number] Oral 120 360 Output: Urine 500 200 Other: Voiding Method Diaper Diaper Diaper External Catheter External Catheter External Catheter # Bowel Movements 1 - Exam GENERAL DESCRIPTION: An elderly male lying in bed in no distress RESPIRATORY SYSTEM: Unlabored breathing , decreased breath sounds at bases HEART: S1 S2 regular rate and rhythm , ABDOMEN: Soft , no tenderness EXTREMITIES: No edema feet - Labs CBC & Chem 7: 01/22/22 07:45 01/23/22 01:58 Labs: Abnormal Lab Results - Last 24 Hours (Table) 01/22/22 01/23/22 01/23/22 Range/Units 19:31 01:58 08:47 APTT 39.7 H 74.9 H 56.9 H (22.0-30.0) sec Microbiology - Last 24 Hours (Table) 01/18/22 15:45 Blood Culture - Preliminary Blood No Growth after 96 hours Assessment and Plan (1) Fever Current Visit: Yes Status: Acute Code(s): R50.9 - FEVER, UNSPECIFIED SNOMED Code(s): 761214870 (2) UTI (urinary tract infection) Current Visit: Yes Status: Acute Code(s): N39.0 - URINARY TRACT INFECTION, SITE NOT SPECIFIED SNOMED Code(s): 93793050 Plan: 1patient presented to hospital with episode of unresponsiveness seizure activit y did have a fever with mental status changes underlying encephalitis need to be ruled out and more likely viral etiology clinically not behaving as a bacterial meningitis , Patient seem to have shown overall clinical improvement, More likely dealing with a UTI with urine culture issues Staphylococcus waneri and the patient has clinical responded to Rocephin to continue while inpatient finishing therapy with oral Ceftin and close outpatient follow-up Time with Patient: Less than 30
--- NOTE | 2022-01-23 14:13 | P.PN ---
Subjective Progress Note Date: 01/23/22 The patient continues to be clinically doing well. Objective - Vital Signs Vital signs: Vital Signs Temp 97.9 F 01/23/22 08:00 Pulse 74 01/23/22 08:00 Resp 18 01/23/22 08:00 BP 98/63 01/23/22 08:00 Pulse Ox 97 01/23/22 08:00 FiO2 Intake & Output 01/22/22 01/23/22 01/23/22 18:59 06:59 18:59 Intake Total 250 396.558 360 Output Total 500 200 Balance -250 396.558 160 Intake: IV 100 levETIRAcetam IV 1,000 mg 100 In Saline 1 100ml.bag @ 400 mls/hr IVPB Q12HR [facility] Rx#:[id number] Intake, IV Titration 250 176.558 Amount Heparin Sod,Pork in 0.45% 250 176.558 NaCl 25,000 unit In 0.45 % NaCl 1 250ml.bag @ 12 UNITS/KG/HR 8.981 mls/hr IV .Q24H [facility] Rx#: [id number] Oral 120 360 Output: Urine 500 200 Other: Voiding Method Diaper Diaper Diaper External Catheter External Catheter External Catheter # Bowel Movements 1 - Exam Physical exam: Patient is awake, alert, oriented to self. Stated he is in the hospital and year is 2021. He is following simple commands. Visual field are full to controntation. EOM intact and no nystagmus. No facial weakness. No dysarthria. Strength: Moving all extremities above gravity and no focal deficit noted. Sensation: Normal to touch. Cerebellar: Normal finger to nose bilaterally. SOME OF THE WORK-UP DURING THIS HOSPITAL VISIT: * u/a: Positive for acut UTI * Carotid duplex: It is reported as there is antegrade flow in the vertebral arteries. Images and measurements suggest close to 50% stenosis in the right internal carotid artery. There is approximately 30% stenosis in the left internal carotid artery. * Lipid panel is a triglyceride of 104, cholesterol 149, LDL of 79 and HDL 49 * 2-D echo was reported as normal left ventricular ejection fraction of 55-60%. Trace mitral regurgitation. Normal left atrial size. No evidence of atrial septal defect. * Continue close neuro checks. * TSH is 1.590. * EEG reported as abnormal due to background slowing of moderate degree. This is suggestive of generalized cerebral dysfunction as can be seen with toxic metabolic encephalopathy or due to diffuse structural brain abnormality. Clinical correlation recommended. No epileptiform activity was seen. * MRI of the brain rule out CVA: It is reported as suspected evolving acute lacunar infarct in the right cerebellar hemispheric. Moderate diffuse cerebral atrophy and mild chronic small vessel ischemic change redemonstrated without significant interval change. I personally reviewed the MRI and agree with the report. I feel the patient has small focal stroke over the right cerebellar region. - Labs CBC & Chem 7: 01/22/22 07:45 01/23/22 01:58 Labs: Abnormal Lab Results - Last 24 Hours (Table) 01/22/22 01/23/22 01/23/22 Range/Units 19:31 01:58 08:47 APTT 39.7 H 74.9 H 56.9 H (22.0-30.0) sec Microbiology - Last 24 Hours (Table) 01/18/22 15:45 Blood Culture - Preliminary Blood No Growth after 96 hours Assessment and Plan Assessment: * 76-year-old male who was found on the floor, unresponsive (intact vitals), then had a witnessed seizure by the learning administrator staff in the ambulance. New onset seizure. * Acute right cerebellar stroke (small) but that would not explain his seizures nor his confusion. * Severe encephalopathy--resolved * Leukocytosis, patient spiked one low grade fever overnight. Has acute UTI. * Patient had similar presentation on 07/28/2020 (found down outside in the cold by the mailbox), was felt to be a syncopal spell versus seizure. Workup was negative. * Acute UTI, cultures positive for staph warneri * Elevated cardiac enzymes, on heparin * Moderate renal insufficiency. * Hypertension * Hard of hearing, uses hearing aid * History of aortic stenosis, status post valve replacement in 2018 Plan: * Patient has spiked one time of low grade fever with leukocytosis---resolved. There was consideration of ?encephalitis but lumbar puncture was not performed since on heparin drip. He has acute UTI. His mentation improved. Will not pursue with Lumbar puncture since his mentaiton improved and continues to be on IV heparin drip. Will defer modification of medication to I.D. team. Currently on Ceftrixone 2gm every 24 hours. * MRI of the brain rule out CVA: It is reported as suspected evolving acute lacunar infarct in the right cerebellar hemispheric. Moderate diffuse cerebral atrophy and mild chronic small vessel ischemic change redemonstrated without significant interval change. I personally reviewed the MRI and agree with the report. I feel the patient has small focal stroke over the right cerebellar region. * patient is on ASA 81mg daily (new during this admission), IV heparin. Continue Lipitor 40mg qhs for secondary stroke prophylaxis. * ID is on board. * Patient's Dilantin level is 13.9. As EEG did not reveal any epileptiform activity, and per Dr. Bradshaw to continue on single agent with Keppra 1000 mg IV twice a day. * Consulted PT and OT * I spoke with the daughter and agreement of having consideration of LUIS for acute stroke as outpatient. * Will defer the rest of medical management to the primary team. * DVT prophylaxis: Patient on IV heparin * Recommend patient to follow-up with neurologist as outpatient within 1-2 weeks. CONDITION: Guarded. The plan is discussed with his daughter (Radha) via phone and his nurse. Otherwise no additional work-up needed. Garry Schuler M.D. Neuro-Hospitalist Time with Patient: Less than 30
[2022-01-23] MEDS ORDERED: LORazepam 1 MG TAB PO PRN (17:26)
[2022-01-23] MEDS: SODIUM CHLORIDE 0.9% 1,000 ML IV SCH ×2 (18:49→18:50)
[2022-01-23] MEDS: HEPARIN SOD,PORK IN 0.45% NACL 25,000 UNIT in 0.45% NACL 1 250ML.BAG IV SCH (19:30)
[2022-01-23] MEDS: MELATONIN 3 MG TABLET PO PRN (21:05)
[2022-01-24] MEDS: SODIUM CHLORIDE 0.9% 1,000 ML IV SCH ×4 (06:06→23:49)
[2022-01-24] MEDS: HEPARIN SOD,PORK IN 0.45% NACL 25,000 UNIT in 0.45% NACL 1 250ML.BAG IV SCH (06:07)
[2022-01-24] MEDS: ASPIRIN 81 MG PO SCH (08:44)
[2022-01-24] MEDS: METOPROLOL TARTRATE 25 MG TAB PO SCH ×2 (08:44→21:28)
[2022-01-24] MEDS: levETIRAcetam IV 1,000 MG in SALINE 1 100ML.BAG IVPB SCH ×2 (08:44→21:28)
[2022-01-24] MEDS: LISINOPRIL-HCTZ 20-25 MG 1 EACH TAB PO SCH (08:44)
--- NOTE | 2022-01-24 10:05 | FL ---
EXAMINATION TYPE: FL barium swallow w video DATE OF EXAM: 01/24/2022 CLINICAL HISTORY: 76-year-old male choking on thins at the bedside, small cerebellar lesion found. TECHNIQUE: Deglutition study is performed utilizing thin liquid barium, honey and nectar thick liqui d barium, barium thick applesauce, and barium coated cracker. COMPARISON: None. Total fluoroscopy time: 1 minute 45 seconds. Total images: None. Real-time fluoroscopy support was provided to speech pathology. FINDINGS: Satisfactory initiation of swallow but with slight sluggish movement of the epiglottis. Thin liquid barium shows transient penetration. Otherwise, no additional penetration or aspiration is seen. Moderate vallecular residuals are demonstrated along with coating of the posterior pharyngeal wall. IMPRESSION: Transient penetration with thin liquids. Otherwise, no aspiration. Sluggish movement of the epiglotti s, prominent residuals and some posterior pharyngeal wall dysmotility. Please refer to speech therapist notes for further details if necessary.
--- NOTE | 2022-01-24 11:10 | P.PN ---
Subjective Progress Note Date: 01/24/22 Patient's mentation continues to improve. He underwent barium swallow study to rule out aspiration today. Plan is for rehab placement once insurance is authorized. Gen: awake, alert HEENT: normocephalic, atraumatic, good hearing acuity, moist mucous membranes Resp: good air exchange, breathing comfortably with no accessory muscle use CVS: good distal perfusion x 4, GI: soft, NTTP, ND : no SPT, no CVAT, gardner catheter not present MSK: no pitting edema, no clubbing Neuro: non-focal, moving all extremities Psych: cooperative, euthymic mood Assessment/plan: Acute right cerebellar CVA Acute Metabolic Encephalopathy, resolved New onset seizure - encephalitis ruled out with normal temporal lobe on MRI - Neuro recs: Carotid dopplers, Recommends LUIS - ID recs: not likely encephalitis with normal temporal lobe suspect UTI - ASA - on keppra - EEG did not show epileptiform activity, stopping dilantin - neuro checks - seizure precautions - PT/OT/speech recs Staph UTI, POA - rocephin - ID recs Elevated troponin - likely reflective of acute stressor - echo normal - cardio signed off Urinary retention - continue gardner - resume CIC once able CKD III - avoid additional nephrotoxic agent Ecchymosis, left eye - supportive care HX: Prior TIA Prior transient global amnesia HTN Aortic stenosis, s/p replacement Objective - Vital Signs Vital signs: Vital Signs Temp 97.8 F 01/24/22 08:40 Pulse 70 01/24/22 08:40 Resp 18 01/24/22 08:40 BP 107/61 01/24/22 08:40 Pulse Ox 97 01/24/22 08:40 FiO2 Intake & Output 01/23/22 01/24/22 01/24/22 18:59 06:59 18:59 Intake Total 900 340.577 240 Output Total 200 600 300 Balance 700 -259.423 -60 Intake: Intake, IV Titration 200.577 Amount Heparin Sod,Pork in 0.45% 200.577 NaCl 25,000 unit In 0.45 % NaCl 1 250ml.bag @ 12 UNITS/KG/HR 8.981 mls/hr IV .Q24H [facility] Rx#: [id number] Oral 900 140 240 Output: Urine 200 600 300 Other: Voiding Method Diaper Diaper Diaper External Catheter External Catheter External Catheter # Voids 1 # Bowel Movements 1 - Labs CBC & Chem 7: 01/22/22 07:45 01/23/22 01:58 Labs: Abnormal Lab Results - Last 24 Hours (Table) 01/24/22 Range/Units 08:56 APTT 54.4 H (22.0-30.0) sec Microbiology - Last 24 Hours (Table) 01/18/22 15:45 Blood Culture - Preliminary Blood No Growth after 120 hours
[2022-01-24 13:09] VITALS: BMI 27.9
[2022-01-24] MEDS: HEPARIN SODIUM,PORCINE/PF 5,000 UNIT/0.5 ML SYRINGE SQ SCH ×2 (17:02→23:49)
[2022-01-24] MEDS: MELATONIN 3 MG TABLET PO PRN (21:28)
[2022-01-25 06:39] VITALS: RESP 16
[2022-01-25] MEDS: HEPARIN SODIUM,PORCINE/PF 5,000 UNIT/0.5 ML SYRINGE SQ SCH (09:19)
[2022-01-25] MEDS: LISINOPRIL-HCTZ 20-25 MG 1 EACH TAB PO SCH (09:19)
[2022-01-25] MEDS: ASPIRIN 81 MG PO SCH (09:19)
[2022-01-25] MEDS: METOPROLOL TARTRATE 25 MG TAB PO SCH (09:19)
[2022-01-25 09:54] VITALS: BP 115/64; PULSE 90; TEMP 97.9
[2022-01-25] MEDS: levETIRAcetam IV 1,000 MG in SALINE 1 100ML.BAG IVPB SCH (10:11)
--- NOTE | 2022-01-25 10:58 | P.DS ---
Providers Date of admission: 01/18/22 14:00 Expected date of discharge: 01/25/22 Attending physician: Delaney Dawn DO Consults: 01/18/22 14:00 Consult Physician Urgent Consulting Provider: Clive Bradshaw Consult Reason/Comments: new onset seizure Do you want consulting provider notified?: Yes 01/18/22 17:14 anesthesia [Consult to Anesthesia] Routine Consulting Provider: Anesthesia,Services Consult Reason/Comments: lumbar puncture, rule out encephalitis 01/19/22 15:44 Consult Physician Routine Consulting Provider: Tirso Drummond Consult Reason/Comments: AMS, fever, new onset seizure, ?HSV encephalitis vs encephalopathy from UTI Do you want consulting provider notified?: Yes Primary care physician: Kathleen Moe MD Hospital Course: Acute right cerebellar CVA Acute Metabolic Encephalopathy, resolved New onset seizure Staph UTI, POA Elevated troponin Urinary retention CKD III Ecchymosis, left eye Prior TIA Prior transient global amnesia HTN Aortic stenosis, s/p replacement Patient is a 76-year-old male with a history of hypertension, prior TIAs, prior episode of transient global amnesia in 2020, and difficulty hearing who presented to the ER after being found unresponsive by his daughter. He was sent in via EMS and had a reported seizure in route. Patient was given Versed. In the ER he underwent an extensive evaluation. Initial laboratory analysis showed white blood cell count of 17, carbon dioxide of 13 with an anion gap of 19, creatinine 1.63 (up from his baseline of 1.4), and mildly elevated troponin of 0.049. Urine drug screen was negative, salicylates negative, alcohol negative. Urinalysis was consistent with urinary tract infection. 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 In the ER he was loaded with Keppra and given a dose of Rocephin. Arrangements were made for admission. Per ER physician had been becoming more arousable was extremely agitated and did require an additional dose of Ativan. Patient was seen by neurology and started on acyclovir and Keppra, Dilantin. Dilantin was discontinued after EEG did not show any epileptiform activity. Patient was treated with ceftriaxone for urinary tract infection. ID was consulted and recommended discontinuing acyclovir after patient's mentation improved. Patient did undergo an MRI which showed new stroke. Patient's urine culture did return positive for Staphylococcus warneri urinary tract infection. Patient completed 7 day course of antibiotics while he was in-house. Patient's mentation is back to baseline. PT recommended rehab. I spent 35 minutes preparing this discharge Gen: awake, alert HEENT: normocephalic, atraumatic, good hearing acuity, moist mucous membranes Resp: good air exchange, breathing comfortably with no accessory muscle use CVS: good distal perfusion x 4, GI: soft, NTTP, ND : no SPT, no CVAT, gardner catheter not present MSK: no pitting edema, no clubbing Neuro: non-focal, moving all extremities Psych: cooperative, euthymic mood Patient Condition at Discharge: Good Plan - Discharge Summary Discharge Rx Participant: No New Discharge Prescriptions: New Aspirin 81 mg PO DAILY #30 tab levETIRAcetam [Keppra] 1,000 mg PO Q12HR #60 tab Acetaminophen Tab [Tylenol] 650 mg PO Q6HR PRN tab PRN Reason: Mild Pain Or Fever > 100.5 Continue buPROPion HCL [Wellbutrin XL] 300 mg PO DAILY Metoprolol Tartrate [Lopressor] 25 mg PO BID Lisinopril-Hctz 20-25 mg [Zestoretic 20-25] 1 tab PO DAILY Discharge Medication List buPROPion HCL [Wellbutrin XL] 300 mg PO DAILY 02/20/17 [History] Lisinopril-Hctz 20-25 mg [Zestoretic 20-25] 1 tab PO DAILY 06/08/20 [History] Metoprolol Tartrate [Lopressor] 25 mg PO BID 06/08/20 [History] Acetaminophen Tab [Tylenol] 650 mg PO Q6HR PRN tab 01/25/22 [Rx] Aspirin 81 mg PO DAILY #30 tab 01/25/22 [Rx] levETIRAcetam [Keppra] 1,000 mg PO Q12HR #60 tab 01/25/22 [Rx] Follow up Appointment(s)/Referral(s): Kathleen Moe MD [Primary Care Provider] - 1-2 days Patient Instructions/Handouts: Seizure/Epilepsy Discharge Instructions & Follow-Up Discharge Disposition: TRANSFER TO SNF/ECF
== END 2022-01-25 13:10 | DRG 64 ==
LOC: EC 12:17 → 3SCARD 14:00
PROVIDERS: ADMIT Internal Medicine; ATTEND Internal Medicine
DX: I63.541 Cerebral infarction due to unspecified occlusion or stenosis of right cerebellar artery (principal); A41.9 Sepsis, unspecified organism; G93.41 Metabolic encephalopathy; I21.A1 Myocardial infarction type 2; N17.9 Acute kidney failure, unspecified; N39.0 Urinary tract infection, site not specified; F23 Brief psychotic disorder; E87.2 Acidosis; H91.90 Unspecified hearing loss, unspecified ear; R33.9 Retention of urine, unspecified; I12.9 Hypertensive chronic kidney disease with stage 1 through stage 4 chronic kidney disease, or unspecified chronic kidney disease; G47.00 Insomnia, unspecified; F41.9 Anxiety disorder, unspecified; F32.A Depression, unspecified; G93.89 Other specified disorders of brain; G45.4 Transient global amnesia; I35.0 Nonrheumatic aortic (valve) stenosis; N18.30 Chronic kidney disease, stage 3 unspecified; R56.9 Unspecified convulsions; Z78.1 Physical restraint status; S00.11XA Contusion of right eyelid and periocular area, initial encounter; R45.1 Restlessness and agitation; Z53.9 Procedure and treatment not carried out, unspecified reason; B95.8 Unspecified staphylococcus as the cause of diseases classified elsewhere; Z79.82 Long term (current) use of aspirin; Z79.899 Other long term (current) drug therapy; Z82.49 Family history of ischemic heart disease and other diseases of the circulatory system; Z95.2 Presence of prosthetic heart valve; Z97.4 Presence of external hearing-aid
CPT/HCPCS: 36415; 70450; 70551; 71045; 72125; 74230; 80048; 80053; 80061; 80143; 80179; 80185; 80202; 80306; 80320; 81001; 82140; 82550; 82565; 83605; 83735; 84145; 84146; 84443; 84484; 85025; 85027; 85610; 85730; 86140; 87040; 87077; 87086; 87186; 93005; 93306; 93880; 95816; 96365; 96366; 96367; 96372; 96375; 99285

== ENCOUNTER 2022-09-21 14:54 | Observation (INO) | payer MEDICARE ==
[2022-09-21] MEDS ORDERED: SODIUM CHLORIDE 0.9% 1,000 ML IV STA (15:37)
--- NOTE | 2022-09-21 15:38 | ED ---
Altered Mental Status HPI - General Chief Complaint: Altered Mental Status Stated Complaint: AMS Time Seen by Provider: 09/21/22 15:12 Source: patient, family, EMS, RN notes reviewed, old records reviewed Mode of arrival: EMS Limitations: altered mental status - History of Present Illness Initial Comments: This is a 77-year-old male DF for evaluation of altered mental status and unable to provide history. History obtained from patient's family at bedside. Family was at patient's house history not acting appropriately not acting himself they did a checkup today to see if there is any change in symptoms and he was worse. Family states is like prior urinary tract infection for this patient. Patient does live at home with no at-home caregiver does live alone at home with no at- home caregiver. Is a significant change from his normal baseline redoes function activities of daily living including shower and eating and feeding himself. MD Complaint: altered mental status, confusion, weakness -: days(s) Severity: moderate Consistency of Symptoms: getting worse Context: history of similar presentation Associated Symptoms: incontinence - Related Data Home Medications Medication Instructions Recorded Confirmed buPROPion HCL [Wellbutrin XL] 300 mg PO DAILY 02/20/17 09/21/22 Aspirin EC [Ecotrin] 325 mg PO DAILY 09/21/22 09/21/22 Metoprolol Tartrate [Lopressor] 50 mg PO BID 09/21/22 09/21/22 Vit C/E/Zn/Coppr/Lutein/Zeaxan 1 tab PO BID 09/21/22 09/21/22 [Preservision Areds 2 Chew Tab] cloNIDine HCL [Catapres] 0.1 mg PO Q6H PRN 09/21/22 09/21/22 lisinopriL [Zestril] 20 mg PO DAILY 09/21/22 09/21/22 Previous Rx's Medication Instructions Recorded levETIRAcetam [Keppra] 1,000 mg PO Q12HR #60 tab 01/25/22 Allergies Allergy/AdvReac Type Severity Reaction Status Date / Time No Known Allergies Allergy Verified 09/21/22 16:34 Review of Systems ROS Statement: Those systems with pertinent positive or pertinent negative responses have been documented in the HPI. ROS Other: All systems not noted in ROS Statement are negative. Past Medical History Past Medical History: CVA/TIA, Dementia, Hypertension, Syncope Additional Past Medical History / Comment(s): aortic stenosis, murmur, [place] wears hearing aids one[place]. History of Any Multi-Drug Resistant Organisms: None Reported Past Surgical History: Cardiac Valve Replacement, Heart Catheterization Additional Past Surgical History / Comment(s): LUIS Past Anesthesia/Blood Transfusion Reactions: No Reported Reaction Additional Past Anesthesia/Blood Transfusion Reaction / Comment(s): has never had anesthesia Past Psychological History: Depression Smoking Status: Never smoker Past Alcohol Use History: None Reported Past Drug Use History: None Reported - Past Family History Father Family Medical History: Cancer Mother Family Medical History: Myocardial Infarction ([place]) Additional Family Medical History / Comment(s): pt stated his mom, grandmother and great grandmother had heart problems General Exam Limitations: altered mental status General appearance: alert, in no apparent distress, lethargic, cachectic Head exam: Present: atraumatic, normocephalic, normal inspection Eye exam: Present: normal appearance, PERRL, EOMI. Absent: scleral icterus, conjunctival injection, periorbital swelling ENT exam: Present: normal exam, mucous membranes moist Neck exam: Present: normal inspection. Absent: tenderness, meningismus, lymphadenopathy Respiratory exam: Present: normal lung sounds bilaterally. Absent: respiratory distress, wheezes, rales, rhonchi, stridor Cardiovascular Exam: Present: regular rate, normal rhythm, normal heart sounds. Absent: systolic murmur, diastolic murmur, rubs, gallop, clicks GI/Abdominal exam: Present: soft, normal bowel sounds. Absent: distended, tenderness, guarding, rebound, rigid Extremities exam: Present: normal inspection, full ROM, normal capillary refill. Absent: tenderness, pedal edema, joint swelling, calf tenderness Back exam: Present: normal inspection Neurological exam: Present: alert, oriented X3, CN II-XII intact Psychiatric exam: Present: normal affect, normal mood Skin exam: Present: warm, dry, intact, normal color. Absent: rash Course Vital Signs 09/21/22 09/21/22 14:56 16:38 Temperature 98.3 F 97.7 F Pulse Rate 77 69 Respiratory 16 17 Rate Blood Pressure 153/91 193/99 O2 Sat by Pulse 97 98 Oximetry - Reevaluation(s) Reevaluation #1: 09/21/22 17:34 Medical record is reviewed Reevaluation #2: 09/21/22 17:34 Family spoke with at bedside, they're agreeable to treatment plan Reevaluation #3: 09/21/22 17:34 Patient informed results of the unable to comprehend diagnosis, does suffer from underlying dementia although this acute changes again he continues to be new Reevaluation #4: 09/21/22 17:34 Was pt. sent in by a medical professional or institution? @ -no patient does present by EMS Did you speak to anyone other than the patient for history? @ -EMS and paitents daughter at beside Did you review nursing and triage notes? @ -agree Were old charts reviewed? @ -prior admissions and ER evaluaions are reviewed Differential Diagnosis? @ -AMS EKG interpreted by me (3pts min.)? @ -no X-rays interpreted by me (1pt min.)? @ -no CT interpreted by me (1pt min.)? @ -no U/S interpreted by me (1pt. min.)? @ -no What testing was considered but not performed? (CT, X-rays, U/S, labs)? Why? @ -ni What meds were considered but not given? Why? @ -no patient with no current complaints Did you discuss the management of the patient with other professionals? @ -no Did you reconcile home meds? @ -no Was smoking cessation discussed for >3mins.? @ -no Was critical care preformed (if so, how long)? @ -no Were there social determinants of health that impacted care today? How? (Homelessness, low income, unemployed, alcoholism, drug addiction, transportation, low edu. Level, literacy, decrease access to med. care, fdc, rehab)? @ -no Was there de-escalation of care discussed even if they declined? (Discuss DNR or withdrawal of care, Hospice)? @ -no What co-morbidities impacted this encounter? (DM, HTN, Smoking, COPD, CAD, Cancer, CVA, Hep., AIDS, mental health diagnosis, sleep apnea, morbid obesity)? @ -none Was patient admitted / discharged? @ -obs Undiagnosed new problem with uncertain prognosis? @ -UTI and delirium Drug Therapy requiring intensive monitoring for toxicity (Heparin, Nitro, Insulin, Cardizem)? @ -no Were any procedures done? @ -no Diagnosis/symptom? @ -UTI and Delirium Acute, or Chronic, or Acute on Chronic? @ -acute Uncomplicated (without systemic symptoms) or Complicated (systemic symptoms)? @ -uncompicated Side effects of treatment? @ -none Exacerbation, Progression, or Severe Exacerbation] @ -no Poses a threat to life or bodily function? @ -no 09/21/22 17:36 Reevaluation #5: 09/21/22 17:34 Differential Altered Mental Status: Hypoglycemia, DKA, hypercapnia, ETOH, overdose, CO poisoning, trauma, myxedema coma, HTN encephalopathy, infection, encephalitis, psychosis, intercranial hemorrhage, hepatic encephalopathy, meningitis, CVA, this is not meant to be an all-inclusive list35 - Consultations Consultation #1: Spoke with sound physicians will admit this patient again admits to sound Medical Decision Making - Medical Decision Making 77 male DF for evaluation delirium. Found to be not acting himself yesterday landing into today. Patient is speaking to people aren't there not doing activities of daily living which is not normal for him. Patient does have a significant urinary tract inspection which she does have symptoms like this in the past. Patient be admitted for IV antibiotics and monitoring of mental condition has he does live alone - Lab Data Result diagrams: 09/21/22 15:48 09/21/22 15:48 Lab Results 09/21/22 09/21/22 09/21/22 Range/Units 15:48 15:48 15:48 WBC 8.2 (3.8-10.6) k/uL RBC 4.93 (4.30-5.90) m/uL Hgb 15.2 (13.0-17.5) gm/dL Hct 45.6 (39.0-53.0) % MCV 92.5 (80.0-100.0) fL MCH 30.9 (25.0-35.0) pg MCHC 33.4 (31.0-37.0) g/dL RDW 13.4 (11.5-15.5) % Plt Count 215 (150-450) k/uL MPV 7.7 Neutrophils % 68 % Lymphocytes % 15 % Monocytes % 10 % Eosinophils % 3 % Basophils % 1 % Neutrophils # 5.6 (1.3-7.7) k/uL Lymphocytes # 1.2 (1.0-4.8) k/uL Monocytes # 0.8 (0-1.0) k/uL Eosinophils # 0.3 (0-0.7) k/uL Basophils # 0.0 (0-0.2) k/uL PT 11.5 (9.0-12.0) sec INR 1.1 (<1.2) APTT 22.3 (22.0-30.0) sec Sodium 136 L (137-145) mmol/L Potassium 4.4 (3.5-5.1) mmol/L Chloride 103 (98-107) mmol/L Carbon Dioxide 25 (22-30) mmol/L Anion Gap 8 mmol/L BUN 17 (9-20) mg/dL Creatinine 1.04 (0.66-1.25) mg/dL Est GFR (CKD-EPI)AfAm 80 (>60 ml/min/1.73 sqM) Est GFR (CKD-EPI)NonAf 69 (>60 ml/min/1.73 sqM) Glucose 98 (74-99) mg/dL Calcium 9.5 (8.4-10.2) mg/dL Phosphorus 2.3 L (2.5-4.5) mg/dL Magnesium 1.9 (1.6-2.3) mg/dL Total Bilirubin 0.8 (0.2-1.3) mg/dL AST 36 (17-59) U/L ALT 28 (4-49) U/L Alkaline Phosphatase 56 (38-126) U/L Ammonia (<30) umol/L Troponin I (0.000-0.034) ng/mL Total Protein 6.0 L (6.3-8.2) g/dL Albumin 3.5 (3.5-5.0) g/dL TSH 0.933 (0.465-4.680) mIU/L Urine Color Urine Appearance (Clear) Urine pH (5.0-8.0) Ur Specific [place] (1.001-1.035) Urine Protein (Negative) Urine Glucose (UA) (Negative) Urine Ketones (Negative) Urine Blood (Negative) Urine Nitrite (Negative) Urine Bilirubin (Negative) Urine Urobilinogen (<2.0) mg/dL Ur Leukocyte Esterase (Negative) Urine RBC (0-5) /hpf Urine WBC (0-5) /hpf Urine Bacteria (None) /hpf Urine Mucus (None) /hpf 09/21/22 09/21/22 09/21/22 Range/Units 15:48 15:48 Unknown WBC (3.8-10.6) k/uL RBC (4.30-5.90) m/uL Hgb (13.0-17.5) gm/dL Hct (39.0-53.0) % MCV (80.0-100.0) fL MCH (25.0-35.0) pg MCHC (31.0-37.0) g/dL RDW (11.5-15.5) % Plt Count (150-450) k/uL MPV Neutrophils % % Lymphocytes % % Monocytes % % Eosinophils % % Basophils % % Neutrophils # (1.3-7.7) k/uL Lymphocytes # (1.0-4.8) k/uL Monocytes # (0-1.0) k/uL Eosinophils # (0-0.7) k/uL Basophils # (0-0.2) k/uL PT (9.0-12.0) sec INR (<1.2) APTT (22.0-30.0) sec Sodium (137-145) mmol/L Potassium (3.5-5.1) mmol/L Chloride (98-107) mmol/L Carbon Dioxide (22-30) mmol/L Anion Gap mmol/L BUN (9-20) mg/dL Creatinine (0.66-1.25) mg/dL Est GFR (CKD-EPI)AfAm (>60 ml/min/1.73 sqM) Est GFR (CKD-EPI)NonAf (>60 ml/min/1.73 sqM) Glucose (74-99) mg/dL Calcium (8.4-10.2) mg/dL Phosphorus (2.5-4.5) mg/dL Magnesium (1.6-2.3) mg/dL Total Bilirubin (0.2-1.3) mg/dL AST (17-59) U/L ALT (4-49) U/L Alkaline Phosphatase (38-126) U/L Ammonia <9 (<30) umol/L Troponin I <0.012 (0.000-0.034) ng/mL Total Protein (6.3-8.2) g/dL Albumin (3.5-5.0) g/dL TSH (0.465-4.680) mIU/L Urine Color Yellow Urine Appearance Cloudy (Clear) Urine pH 6.5 (5.0-8.0) Ur Specific [place] 1.011 (1.001-1.035) Urine Protein Negative (Negative) Urine Glucose (UA) Negative (Negative) Urine Ketones 1+ H (Negative) Urine Blood Trace H (Negative) Urine Nitrite Negative (Negative) Urine Bilirubin Negative (Negative) Urine Urobilinogen <2.0 (<2.0) mg/dL Ur Leukocyte Esterase Large H (Negative) Urine RBC 9 H (0-5) /hpf Urine WBC >182 H (0-5) /hpf Urine Bacteria Rare H (None) /hpf Urine Mucus Rare H (None) /hpf - EKG Data -: EKG Interpreted by Me (EKG is sinus 70 NM 192 QRS 100 QTc 428) - Radiology Data Radiology results: report reviewed (CT brain is negative for acute disease), image reviewed Disposition Clinical Impression: UTI (urinary tract infection), Altered mental status, Delirium due to general medical condition, Weakness Disposition: ADMITTED IP TO THIS [facility] Condition: Good Is patient prescribed a controlled substance at d/c from ED?: No Referrals: Adolph Roldan MD [Primary Care Provider] - 1-2 days Time of Disposition: 05:30
[2022-09-21 15:52] LABS: Basophils % (A) 1 %; Eosinophils # (A) 0.3 k/uL (0-0.7); Eosinophils % (A) 3 %; HCT 45.6 % (39.0-53.0); HGB 15.2 gm/dL (13.0-17.5); Lymphocytes # (A) 1.2 k/uL (1.0-4.8); Lymphocytes % (A) 15 %; MCH 30.9 pg (25.0-35.0); MCHC 33.4 g/dL (31.0-37.0); MCV 92.5 fL (80.0-100.0); Mean Platelet Volume 7.7; Monocytes # (A) 0.8 k/uL (0-1.0); Monocytes % (A) 10 %; Neutrophils # (A) 5.6 k/uL (1.3-7.7); Neutrophils % (A) 68 %; Platelet Count 215 k/uL (150-450); RBC 4.93 m/uL (4.30-5.90); RDW 13.4 % (11.5-15.5); WBC 8.2 k/uL (3.8-10.6)
--- NOTE | 2022-09-21 15:57 | XR ---
EXAMINATION TYPE: XR chest 1V portable DATE OF EXAM: 09/21/2022 COMPARISON: 07/28/2020 HISTORY: Weakness TECHNIQUE: Single frontal view of the chest is obtained. FINDINGS: There is no focal air space opacity, pleural effusion, or pneumothorax seen. The cardiac silhouette size is within normal limits there are median sternotomy wires otherwise the osseous struc tures are intact. IMPRESSION: No acute process.
[2022-09-21 16:07] LABS: INR 1.1 (<1.2); Partial Thromboplastin Time 22.3 sec (22.0-30.0); Prothrombin Time 11.5 sec (9.0-12.0)
[2022-09-21 16:18] LABS: Appearance,Urine Cloudy (Clear); Bacteria,Urine Rare /hpf; Bilirubin,Urine Negative (Negative); Blood,Urine Trace (Negative); Color,Urine Yellow; Glucose,Urine (UA) Negative (Negative); Ketones,Urine 1+ (Negative); Leukocyte Esterase,Urine Large (Negative); Mucus,Urine Rare /hpf; Nitrite,Urine Negative (Negative); PH, Urine 6.5 (5.0-8.0); Protein,Urine Negative (Negative); RBC,Urine 9 /hpf (0-5); Specific Gravity,Urine 1.011 (1.001-1.035); Urobilinogen,Urine <2.0 mg/dL (<2.0); WBC,Urine >182 /hpf (0-5)
[2022-09-21 16:24] LABS: Albumin 3.5 g/dL (3.5-5.0); Calcium 9.5 mg/dL (8.4-10.2); Magnesium 1.9 mg/dL (1.6-2.3); Phosphorus 2.3 mg/dL (2.5-4.5); Potassium 4.4 mmol/L (3.5-5.1); Total Bilirubin 0.8 mg/dL (0.2-1.3)
--- NOTE | 2022-09-21 16:41 | CT ---
EXAMINATION TYPE: CT brain wo con DATE OF EXAM: 09/21/2022 COMPARISON: 922 HISTORY: AMS, weakness CT DLP: 1096.4 mGycm Automated exposure control for dose reduction was used. FINDINGS: The ventricles, basal cisterns and sulci over convexities are moderately enlarged consistent with mod erate atrophy but appropriate for the patient's age. Persistent mild encephalomalacia within the white matter adjacent to the occipital horn of the left l ateral ventricle with mild ex vacuo dilatation of the occipital horn of the left lateral ventricle. F indings are consistent with a remote small white matter infarct. There is no mass effect or shift of midline structures. The posterior fossa including the brainstem, fourth ventricle and cerebellar pontine angles appear no rmal. The intraorbital contents appear normal and symmetric. Visualized paranasal sinuses and mastoid air cells are well aerated. IMPRESSION: 1. Moderate age-appropriate atrophy. 2. No acute bleed or mass effect. 3. Remote small stable left temporal lobe infarct.
[2022-09-21] MEDS ORDERED: ONDANSETRON 4 MG/2 ML VIAL IVP PRN (17:30)
[2022-09-21] MEDS ORDERED: NALOXONE 0.4 MG/ML 1 ML VIAL IV PRN (17:30)
[2022-09-21] MEDS: SODIUM CHLORIDE 0.9% 1,000 ML IV SCH (18:04)
--- NOTE | 2022-09-22 03:37 | P.HPIM ---
History of Present Illness H&P Date: 09/21/22 Chief Complaint: confusion 77 year old male with hypertension , history of stroke and Aortic valve replacement family brought patient in for evaluation due to not acting normal , confusion , and weakness. they reported that he develops that when he has a UTI. he lives alone with no caregiver, but family was visiting and noticed some changes from his baseline, and followed up again the next day , and noticed that he was getting worse, and sustained a fall. patient unable to provide any meaningful history , he denies any complaints . denies headache, focal neuro deficits , denies chest pain , trouble breathing, abd pain , nausea or vomiting. patient denies fever, chills, or urinary changes he admits to falling at home, denies LOC, claims that he felt weak in his legs and lost his balance. family was not available at time of my evaluation patient was seen last time around January last year, where he was found to have acute stroke, and new onset seizure Review of Systems ROS unobtainable: due to mental status Past Medical History Past Medical History: CVA/TIA, Dementia, Hypertension, Syncope Additional Past Medical History / Comment(s): aortic stenosis s/p replacemet , murmur, [place] wears hearing aids oneal. History of Any Multi-Drug Resistant Organisms: None Reported Past Surgical History: Cardiac Valve Replacement, Heart Catheterization Additional Past Surgical History / Comment(s): LUIS Past Anesthesia/Blood Transfusion Reactions: No Reported Reaction Additional Past Anesthesia/Blood Transfusion Reaction / Comment(s): has never had anesthesia Past Psychological History: Depression Smoking Status: Never smoker Past Alcohol Use History: None Reported Past Drug Use History: None Reported - Past Family History Father Family Medical History: Cancer Mother Family Medical History: Myocardial Infarction ([place]) Additional Family Medical History / Comment(s): pt stated his mom, grandmother and great grandmother had heart problems Medications and Allergies Home Medications Medication Instructions Recorded Confirmed Type buPROPion HCL [Wellbutrin XL] 300 mg PO DAILY 02/20/17 09/21/22 History levETIRAcetam [Keppra] 1,000 mg PO Q12HR #60 tab 01/25/22 09/21/22 Rx Aspirin EC [Ecotrin] 325 mg PO DAILY 09/21/22 09/21/22 History Metoprolol Tartrate [Lopressor] 50 mg PO BID 09/21/22 09/21/22 History Vit C/E/Zn/Coppr/Lutein/Zeaxan 1 tab PO BID 09/21/22 09/21/22 History [Preservision Areds 2 Chew Tab] cloNIDine HCL [Catapres] 0.1 mg PO Q6H PRN 09/21/22 09/21/22 History lisinopriL [Zestril] 20 mg PO DAILY 09/21/22 09/21/22 History Allergies Allergy/AdvReac Type Severity Reaction Status Date / Time No Known Allergies Allergy Verified 09/21/22 16:34 Physical Exam Vitals: Vital Signs Temp Pulse Pulse Resp BP BP Pulse Ox 09/21/22 18:52 78 164/92 09/21/22 18:49 98.0 F 78 20 178/89 97 09/21/22 18:35 82 18 123/92 96 09/21/22 16:38 97.7 F 69 17 193/99 98 09/21/22 14:56 98.3 F 77 16 153/91 97 Intake and Output 09/21/22 09/21/22 09/21/22 06:59 14:59 22:59 Other: Weight 68.039 kg Constitutional: No acute distress, conversant, pleasant, unreliable historian Eyes: Anicteric sclerae, moist conjunctiva, Pupils equal round reactive to light ENMT: NC/ small bruise over the left forehead just above the left eye brow Oropharynx clear, no erythema, or exudates Neck: Supple, no masses, or JVD No carotid bruits No thyromegaly Lungs: Clear to auscultation Clear to percussion Normal respiratory effort, no accessory muscle use Cardiovascular: Heart regular in rate and rhythm, No murmurs, gallops, or rubs No peripheral edema Abdominal: Soft Nontender, no guarding, rebound or rigidity Abdomen moving with respiration Normoactive bowel sounds No hepatomegaly, No splenomegaly No palpable mass No abdominal wall hernia noted Skin: Normal temperature, tone, texture, turgor No induration No subcutaneous nodules No rash, lesions No ulcers Extremities: No digital cyanosis No clubbing Pedal pulses intact and symmetrical Radial pulses intact and symmetrical No calf tenderness Psychiatric: Alert and oriented to person, place Neuro Muscles Strength 5/5 in all 4 extremities Sensation to light touch grossly present throughout Cranial nerves II-XII grossly intact Lymphatics: no palpable cervical or supraclavicular lymph nodes Results CBC & Chem 7: 09/21/22 15:48 09/21/22 15:48 Labs: Abnormal Lab Results - Last 24 Hours (Table) 09/21/22 09/21/22 Range/Units 15:48 Unknown Sodium 136 L (137-145) mmol/L Phosphorus 2.3 L (2.5-4.5) mg/dL Total Protein 6.0 L (6.3-8.2) g/dL Urine Ketones 1+ H (Negative) Urine Blood Trace H (Negative) Ur Leukocyte Esterase Large H (Negative) Urine RBC 9 H (0-5) /hpf Urine WBC >182 H (0-5) /hpf Urine Bacteria Rare H (None) /hpf Urine Mucus Rare H (None) /hpf Assessment and Plan Assessment: 77 year old male brought in due to confusion and weakness, with suspected UTI , I discussed the case with ED doc, he is being treated for suspected UTI, I accepted the admission for close monitoring , IV antibiotics with anticipated length of stay < 2 midnights acute metabolic encephalopathy suspected UTI history of stroke and seizure plan follow up cultures WBC unremarkable 8.2 UA positive for leukocyte esterase and bacteria started on rocephine IVPB daily 2 gm IVF hydration with normal saline tylenol for fever resume aspirin 325 mg daily po neuro checks q 2 hrs seizure precautions fall precautions PT eval Brain CT no acute pathology renal function unremarkable with GFR 80 , BUN 17 Cr1.04 chronic conditions hypertension , controlled resume home medications lisinopril , and metoprolol seizure resume keppra 1 gm bid po full code DVT PPX heparin sc tid
[2022-09-22] MEDS: SODIUM CHLORIDE 0.9% 1,000 ML IV SCH ×2 (07:20→10:08)
[2022-09-22] MEDS: METOPROLOL TARTRATE 50 MG TAB PO SCH (10:07)
[2022-09-22] MEDS: lisinopriL 20 MG TAB PO SCH (10:07)
[2022-09-22] MEDS: levETIRAcetam 500 MG TAB PO SCH ×2 (10:07→20:06)
[2022-09-22] MEDS: ASPIRIN 325 MG TAB PO SCH (10:07)
--- NOTE | 2022-09-22 12:55 | P.PN ---
Subjective Progress Note Date: 09/22/22 Patient is a 77-year-old male with PMH of CVA, hypertension, dementia, AV replacement presents the ED for confusion and generalized weakness. In the ED, his vital signs are stable. CBC was unremarkable. Coagulation panel was within normal limits. CMP showed sodium 136. Phosphorus was 2.3. Troponin was less than 0.012. EKG showed sinus rhythm with no ST elevation. Ammonia was less than 9. TSH within normal limits. Urinalysis showed large leukocyte esterase. Chest x-ray was negative. Brain CT showed remote small stable left temporal lobe infarct. Of note, patient was recently admitted and discharged on 01/2022 after workup for stroke. Patient is admitted for metabolic encephalopathy lik [place] secondary to UTI. Patient was seen and examined. He is complaining about his breakfast being c old. States that he would like to go home. He denies any chest pain, shortness breath or palpitations. No nausea or vomiting. No fever or chills. No abdominal pain. No dysuria. General: non toxic, no distress, appears at stated age Derm: warm, dry Head: atraumatic, normocephalic, symmetric Eyes: EOMI, no lid lag, anicteric sclera Mouth: no lip lesion, mucus membranes moist Cardiovascular: S1S2 reg, no murmur Lungs: CTA bilateral, no rhonchi, no rales , no accessory muscle use Abdominal: soft, nontender to palpation, no guarding, no appreciable organomegaly Ext: no gross muscle atrophy, no edema, no contractures Neuro: no focal neuro deficits Psych: Alert and oriented 2 Acute metabolic encephalopathy Urinary tract infection Generalized weakness Chronic conditions: CVA, hypertension, dementia, AV replacement Based on my assessment of this patient, this patient meets a moderate complexity level of care. I have reviewed the following quality compliance consultant notes: None. I have reviewed the results of the following tests: None. I have ordered the following tests: Urine cultures ordered. I have discussed the care of this patient with the following independent historian: Case was discussed with nursing, patient is confused but easily redirectable. I have independently interpreted the following test below: None. I have discussed the management of this patient with the following physician: None. This patient has a moderate risk of morbidity due to the following reasons: Patient has a new diagnosis of acute metabolic encephalopathy with uncertain prognosis. This is likely related to urinary tract infection. Ammonia and TSH is within normal limits. CT brain shows left-sided temporal lobe infarct which was seen during his previous admission in January. He'll be continued on Rocephin 2 g IV daily. Urine culture is pending. Fall and seizure precautions in place. PT and OT will be consulted to work with this patient. Objective - Vital Signs Vital signs: Vital Signs Temp 98.2 F 09/22/22 07:43 Pulse 89 09/22/22 07:43 Resp 18 09/22/22 07:43 BP 175/99 09/22/22 07:43 Pulse Ox 98 09/22/22 07:43 FiO2 Intake & Output 09/21/22 09/22/22 09/22/22 18:59 06:59 18:59 Intake Total 1090 Balance 1090 Weight 68.039 kg 68.039 kg Intake: Intake, IV Titration 1090 Amount Sodium Chloride 0.9% 1, 1040 000 ml @ 130 mls/hr IV . [id number] [facility] Rx#:[id number] cefTRIAXone 2 gm In 50 Sodium Chloride 0.9% 50 ml @ 100 mls/hr IVPB Q24HR [facility] Rx#:[id number] Other: # Voids 5 - Labs CBC & Chem 7: 09/21/22 15:48 09/21/22 15:48 Labs: Abnormal Lab Results - Last 24 Hours (Table) 09/21/22 09/21/22 Range/Units 15:48 Unknown Sodium 136 L (137-145) mmol/L Phosphorus 2.3 L (2.5-4.5) mg/dL Total Protein 6.0 L (6.3-8.2) g/dL Urine Ketones 1+ H (Negative) Urine Blood Trace H (Negative) Ur Leukocyte Esterase Large H (Negative) Urine RBC 9 H (0-5) /hpf Urine WBC >182 H (0-5) /hpf Urine Bacteria Rare H (None) /hpf Urine Mucus Rare H (None) /hpf
[2022-09-23 10:26] VITALS: BP 137/83; PULSE 73; RESP 17; TEMP 97.5
[2022-09-23] MEDS: ASPIRIN 325 MG TAB PO SCH (10:56)
[2022-09-23] MEDS: lisinopriL 20 MG TAB PO SCH (10:57)
[2022-09-23] MEDS: levETIRAcetam 500 MG TAB PO SCH (10:57)
[2022-09-23] MEDS: METOPROLOL TARTRATE 50 MG TAB PO SCH (10:58)
--- NOTE | 2022-09-23 14:24 | P.DS ---
Providers Date of admission: 09/21/22 17:30 Expected date of discharge: 09/23/22 Attending physician: Raj Johnson MD Primary care physician: Adolph Roldan MD Hospital Course: Patient is a 77-year-old male with PMH of CVA, hypertension, dementia, AV replacement presents the ED for confusion and generalized weakness. In the ED, his vital signs are stable. CBC was unremarkable. Coagulation panel was within normal limits. CMP showed sodium 136. Phosphorus was 2.3. Troponin was less than 0.012. EKG showed sinus rhythm with no ST elevation. Ammonia was less than 9. TSH within normal limits. Urinalysis showed large leukocyte esterase. Chest x-ray was negative. Brain CT showed remote small stable left temporal lobe infarct. Of note, patient was recently admitted and discharged on 01/2022 after workup for stroke. Patient is admitted for metabolic encephalopathy likely secondary to UTI. Patient received 2 days of Rocephin IV during his hospitalization. Urine culture was collected but pending at the time of dis charge. His mentation significantly improved. PT evaluated the patient and recommended home with family. Patient was seen and examined. No acute events overnight. He denies any chest pain, shortness breath or palpitations. No nausea or vomiting. No fever or chills. No abdominal pain. No dysuria. Patient be discharged home with 8 days of Augmentin to complete a total of 10 days for complicated UTI in a male. He will need follow-up with his PCP within 1-2 days of discharge. Burtness studies including CT, chest x-ray. General: non toxic, no distress, appears at stated age Derm: warm, dry Head: atraumatic, normocephalic, symmetric Eyes: EOMI, no lid lag, anicteric sclera Mouth: no lip lesion, mucus membranes moist Cardiovascular: S1S2 reg, no murmur Lungs: CTA bilateral, no rhonchi, no rales , no accessory muscle use Ext: no gross muscle atrophy, no edema, no contractures Neuro: no focal neuro deficits Psych: Alert and oriented 2 Discharge diagnosis: Acute metabolic encephalopathy Urinary tract infection Generalized weakness Chronic conditions: CVA, hypertension, dementia, AV replacement This complex discharge took 35 minutes to complete Patient Condition at Discharge: Stable Plan - Discharge Summary Discharge Rx Participant: No New Discharge Prescriptions: New Amoxic-Pot Clav 875-125Mg [Augmentin 875-125] 1 tab PO Q12HR 8 Days #16 tab Continue buPROPion HCL [Wellbutrin XL] 300 mg PO DAILY levETIRAcetam [Keppra] 1,000 mg PO Q12HR #60 tab cloNIDine HCL [Catapres] 0.1 mg PO Q6H PRN PRN Reason: sbp>160 lisinopriL [Zestril] 20 mg PO DAILY Metoprolol Tartrate [Lopressor] 50 mg PO BID Aspirin EC [Ecotrin] 325 mg PO DAILY Vit C/E/Zn/Coppr/Lutein/Zeaxan [Preservision Areds 2 Chew Tab] 1 tab PO BID Discharge Medication List buPROPion HCL [Wellbutrin XL] 300 mg PO DAILY 02/20/17 [History] levETIRAcetam [Keppra] 1,000 mg PO Q12HR #60 tab 01/25/22 [Rx] Aspirin EC [Ecotrin] 325 mg PO DAILY 09/21/22 [History] Metoprolol Tartrate [Lopressor] 50 mg PO BID 09/21/22 [History] Vit C/E/Zn/Coppr/Lutein/Zeaxan [Preservision Areds 2 Chew Tab] 1 tab PO BID 09/21/22 [History] cloNIDine HCL [Catapres] 0.1 mg PO Q6H PRN 09/21/22 [History] lisinopriL [Zestril] 20 mg PO DAILY 09/21/22 [History] Amoxic-Pot Clav 875-125Mg [Augmentin 875-125] 1 tab PO Q12HR 8 Days #16 tab 09/23/22 [Rx] Follow up Appointment(s)/Referral(s): Adolph Roldan MD [Primary Care Provider] - 1-2 days Activity/Diet/Wound Care/Special Instructions: Diet: Regular Follow up with your PCP within 1-2 days of discharge. Discharge Disposition: HOME SELF-CARE
== END 2022-09-23 16:15 | disposition home or self-care (01) ==
LOC: EC 14:54 → 4SSUR 17:30 → INTOOBSV 17:30 → 4SSUR 18:21 → UNDODISIN 09-23 16:15
PROVIDERS: ADMIT Family Medicine; ATTEND Family Medicine
DX: G93.41 Metabolic encephalopathy (principal); S00.83XA Contusion of other part of head, initial encounter; R53.1 Weakness; N39.0 Urinary tract infection, site not specified; R56.9 Unspecified convulsions; I10 Essential (primary) hypertension; I35.0 Nonrheumatic aortic (valve) stenosis; R01.1 Cardiac murmur, unspecified; F03.90 Unspecified dementia, unspecified severity, without behavioral disturbance, psychotic disturbance, mood disturbance, and anxiety; H91.8X9 Other specified hearing loss, unspecified ear; F32.A Depression, unspecified; Z95.2 Presence of prosthetic heart valve; Z87.440 Personal history of urinary (tract) infections; Z79.899 Other long term (current) drug therapy; Z79.82 Long term (current) use of aspirin; Z86.73 Personal history of transient ischemic attack (TIA), and cerebral infarction without residual deficits; Z80.9 Family history of malignant neoplasm, unspecified; Z82.49 Family history of ischemic heart disease and other diseases of the circulatory system; W19.XXXA Unspecified fall, initial encounter
CPT/HCPCS: 96361 ×3; 96366; 96365 ×2; 99285; 36415; 93005; 97162; 80053; 82140; 83735; 84100; 84443; 84484; 85025; 85610; 85730; 81001; 87086; 71045; 70450; G0378 ×3; J0696 ×3

== ENCOUNTER → 2022-11-04 | Outpatient (CLI) | payer MEDICARE ==
--- NOTE | 2022-11-04 16:06 | US ---
EXAMINATION TYPE: US kidneys/renal and bladder DATE OF EXAM: 11/04/2022 COMPARISON: NONE CLINICAL INDICATION: Male, 77 years old with history of N18.31 CKD; EXAM MEASUREMENTS: Right Kidney: 8.8 x 4.9 x 4.6 cm Left Kidney: 8.3 x 4.8 x 4.4 cm Right Kidney: visualized portions wnl, limited by rib shadowing and overlying bowel gas Left Kidney: visualized portions wnl, limited by rib shadowing and overlying bowel gas Bladder: multiple diverticulum along posterior wall Bilateral Jets seen: yes There is no evidence for hydronephrosis at this point in time. No nephrolithiasis is seen. No ryan s are identified. The urinary bladder is anechoic. Bilateral ureteral jets are seen. IMPRESSION: No acute ultrasound abnormality bilateral kidneys
== END | disposition home or self-care (01) ==
LOC: RADUSWWP 14:37
PROVIDERS: ATTEND Internal Medicine
DX: N18.31 Chronic kidney disease, stage 3a (principal)
CPT/HCPCS: 76770